=== PATIENT | male | born 1940 | race Caucasian/White ===

== ENCOUNTER 2018-08-10 07:48 | Outpatient (CLI) | payer MEDICARE, SELFPAY ==
[2018-08-10 08:41] LABS: Glucose 115 mg/dL (70-100)
== END 2018-08-10 08:08 ==
PROVIDERS: PCP General Practice; Visit Provider General Practice
DX: R73.03 Prediabetes (principal)
CPT/HCPCS: 36415; 82947

== ENCOUNTER 2019-01-25 05:09 | Emergency (ER) | payer MEDICARE, SELFPAY ==
--- NOTE | 2019-01-25 05:19 | ED.GENADUL_ITS ---
Discharge Plan Disposition Patient Disposition: HOME Condition: Stable Discharge Details Chief Complaint: FlankPain Clinical Impression: Kidney stone on right side Primary Care Provider: Lionel Michele ED Provider: Michael Leon Home Meds and New Rx's Prescriptions: New oxycodone 5 mg tablet 5 mg PO Q6H PRN (Reason: pain) Qty: 12 RF: 0 tamsulosin [Flomax] 0.4 mg capsule 0.4 mg PO DAILY Qty: 14 RF: 0 ondansetron 4 mg tablet,disintegrating 4 mg PO Q8H PRN (Reason: nausea and vomiting) Qty: 20 RF: 0 Continued finasteride 5 MG tablet 5 mg PO DAILY RF: 0 I-Caps 1 EACH capsule 1 ea PO DAILY RF: 0 doxazosin 4 MG tablet 4 mg PO DAILY RF: 0 hydrochlorothiazide 25 MG tablet 25 mg PO DAILY RF: 0 Fiber Laxative (methylcellulo) 500 MG tablet 500 mg PO DAILY PRNRF: 0 docusate sodium 250 mg Capsule 250 mg PO DAILY PRNRF: 0 Discharge Instructions Instructions: Kidney Stones (ED) Additional Instructions: Follow up with urology, you should be contacted with an appointment if you develop uncontrolled pain, fevers or persistent vomit return to the emergency department for reevaluation Medical Decision Making 78 yo male with hx of htn and remote history of kidney stones comes in with acut e onset right lower back/flank pain with n/v. He states he has had cold symptoms for a few days including rhinorrhea and dry cough without fevers, otherwise has been feeling well. Denies chest pain, sob, falls/trauma. He arrives in no distress and no abdominal tenderness, has pain in the right lower lumbar region, no midline pain. No saddle anesthesia or urinary retention, no fevers or ivdu, no findings on history or exam to suggest cauda equina or sea. Will obtain ct to eval for kidney stone. Given lack of abdominal tenderness doubt entities such as appendicitis or other surgical pathology labs show no acute findings, awaiting UA. CXR on my read shows no acute findings and CT on my read shows right kindey stone, awaiting vrad report. He remains stable and pain initially went away with toradol but then returned, additional 15mg toradol and he declined morphine. vrad agrees with xray report of no acute finding and ct shows kidney stone otherwise no acute findings. He remains feeling well and is stable for d/c. Will refer to urology within 2 weeks and return precautions given Differential Diagnosis Differential Diagnosis: kidney stone, muscle spasm, pna Imaging Data Radiologic Study: Attestation: I personally reviewed and interpreted this imaging study as follows: Imaging: X-Ray My impression: no acute findings Radiologic Study #2: Attestation: I personally reviewed and interpreted this imaging study as follows: Imaging: CT Scan My impression: right ureteral stone Lab Data Lab results reviewed: Yes I reviewed the patient's lab results. HPI General Mode of arrival: ambulatory . Date/Time Provider Initiated Documentation: 01/25/19 05:10 . Limitations to Documentation: no limitations . Information obtained by: patient . History of Present Illness 78 year old M presents to the emergency department with the chief complaint of right flank pain, described as moderate, Quality is described as aching, and it has been constant. No relieving factors improve symptom(s), No exacerbating factors reported . Patient notes cough. Related Data Home Medications Medication Instructions Recorded Confirmed doxazosin 4 mg PO DAILY 06/23/12 01/25/19 finasteride 5 mg PO DAILY tab-cap 01/31/15 01/25/19 I-Caps 1 ea PO DAILY 05/02/15 01/25/19 hydrochlorothiazide 25 mg PO DAILY 02/20/16 01/25/19 Fiber Laxative (methylcellulo) 500 mg PO DAILY PRN 05/01/16 01/25/19 docusate sodium 250 mg PO DAILY PRN 01/25/19 01/25/19 ondansetron 4 mg PO Q8H PRN #20 tab 01/25/19 oxycodone 5 mg PO Q6H PRN #12 tab 01/25/19 tamsulosin [Flomax] 0.4 mg PO DAILY #14 cap 01/25/19 Previous Rx's Medication Instructions Recorded ondansetron 4 mg PO Q8H PRN #20 tab 01/25/19 oxycodone 5 mg PO Q6H PRN #12 tab 01/25/19 tamsulosin [Flomax] 0.4 mg PO DAILY #14 cap 01/25/19 Allergies Allergy/AdvReac Type Severity Reaction Status Date / Time Penicillins Allergy Unknown sometimes, Unverified 07/26/17 19:26 the shot, so long ago I can't remember hay AdvReac Mild Uncoded 07/26/17 19:26 Review of Systems Review of Systems ROS Unobtainable: All systems reviewed & are unremarkable except as noted in HPI and below Constitutional Constitutional: Denies chills, Denies fever(s) and Denies weakness Cardiovascular Cardiovascular: Denies chest pain and Denies dyspnea Respiratory Respiratory: Denies cough and Denies dyspnea Gastrointestinal Gastrointestinal: Denies abdominal pain, Denies nausea and Denies vomiting Musculoskeletal Musculoskeletal: Denies joint swelling Neurologic Neurologic: Denies weakness [facility] Medical History Essential hypertension Surgical History (Updated 01/28/18 @ 14:34 by [place]) Cholecystectomy Family History Mother Neoplasm Breast cancer. Social History Smoking/Tobacco Use Status: Never Alcohol Intake: never Drug use: Never Substance use type: does not use Do you feel safe at home: Yes Do you feel safe in your relationship?: Yes Exam Const General: no acute distress Orientation: alert HENMT Head: normal to inspection Ears: external ears normal General nose exam: external nose normal Mouth: moist mucous membranes Eyes General: appearance normal, both eyes and all related structures Neck Neck: normal visual inspection Resp Effort & Inspection: normal respiratory effort and able to speak in complete sentences Cardio Rate: regular rate Back/Spine/Pelvis Back: no CVA tenderness Skin General skin exam: no rashes or lesions noted Neuro General: alert and oriented x3 Extrem General: normal to inspection Psych Mental Status: mental status grossly normal
[2019-01-25 05:21] VITALS: BP 160/82; PULSE 79; RESP 16; TEMP 36.2; O2SAT 95
[2019-01-25] MEDS: Normal Saline 1,000 ML 1000 ML IV (05:34)
[2019-01-25] MEDS: Ketorolac 15 MG/ML VIAL IVP ×2 (05:36→06:29)
[2019-01-25] MEDS: Ondansetron 4 MG/2 ML VIAL IVP (05:36)
[2019-01-25 05:37] LABS: Abs Immature Grans 0.03 k/cumm (0.0-0.09); Absolute Basophil Count 0.02 k/cumm (0.0-0.2); Absolute Eosinophil Count 0.16 k/cumm (0.0-0.7); Absolute Lymphocyte Count 1.07 k/cumm (1.2-3.4); Absolute Monocyte Count 0.53 k/cumm (0.11-0.7); Absolute Neutrophil Count 7.23 k/cumm (1.2-6.7); Basophils % 0.2; Eosinophils % 1.8; HCT 45.6 % (40.0-50.0); HGB 15.2 g/dL (13.5-17.5); Immature Grans % 0.3; Lymphocytes % 11.8; Mean Corp. HGB Concentration 33.3 g/dL (32.0-36.0); Mean Corpuscular Volume 90.1 fL (80-95); Mean Platelet Volume 9.6 fL (8.0-11.0); Monocytes % 5.9; Platelet Count 177 x1000/uL (130-400); RBC 5.06 m/cumm (4.50-6.00); RBC Distribution Width 14.4 % (11.8-14.1); White Blood Cell Count 9.04 k/cumm (4.4-10.8)
[2019-01-25 05:45] LABS: Lipase 93 U/L (73-393)
[2019-01-25 05:50] LABS: ALT 20 U/L (16-63); AST 15 U/L (15-37); Alkaline Phosphatase 79 U/L (46-116); Anion Gap 9.9 mmol/L (3-11); BUN 22 mg/dL (7-18); Bilirubin, Total 0.7 mg/dL (0.2-1.0); CO2 29.1 mmol/L (21.0-32.0); CREATININE 1.48 mg/dL (0.70-1.30); Calcium 8.8 mg/dL (8.5-10.1); Chloride 104 mmol/L (98-107); Estimated GFR 45.97 (mL/min/1.73m2); Glucose 152 mg/dL (70-100); INR 1.1 (0.9-1.1); PTT Activated 26.1 sec (21.0-31.4); Potassium 3.7 mmol/L (3.5-5.1); Sodium 143 mmol/L (136-145); Total Protein 7.5 g/dL (6.4-8.2)
--- NOTE | 2019-01-25 06:05 | DI.RAD_ITS ---
EXAM: XR CHEST 2V PA LATERAL INDICATION: cough. COMPARISON: No exams were available for comparison TECHNIQUE: 2D digital imaging was performed. FINDINGS: There is a poor inspiration. Heart is not enlarged. Lungs are grossly clear with probable minimal c hanges of basilar scarring. IMPRESSION: No evidence of acute process.
--- NOTE | 2019-01-25 06:05 | DI.CT_ITS ---
EXAM: CT RENAL COLIC WO CLINICAL HISTORY: right flank pain. TECHNIQUE: COMPARISON: No exams were available for comparison FINDINGS: CT examination of the abdomen and pelvis was performed without contrast administration. Images obtai shirin through the lung bases are unremarkable. Gallbladder has been surgically removed. No biliary di latation. Visualized portions of liver and spleen are unremarkable. Pancreas normal by noncontrast criteria. Abdominal aorta is of normal diameter. Bilateral inguinal hernias, the left inguinal kelsey ia contains fat and a segment of sigmoid colon which is nonobstructed. No focal bowel pathology seen . Normal appearance of the appendix. No abdominal or pelvic adenopathy. Adrenals appear normal bilaterally. Left kidney contains tiny nonobstructing upper pole stone. Nono bstructing lower pole calculi noted in right kidney including an approximately [address] stone. There is left hydronephrosis and hydroureter to the level of the proximal to mid ureter w here there is an obstructing 6 millimeter stone. No additional ureteral calculi identified. Urinary bladder grossly intact. Prostate enlarged. IMPRESSION: Bilateral nonobstructing renal calculi, there is also a 6 millimeter in diameter obstructing right pr oximal to mid ureteral stone. Left inguinal hernia contains a loop of sigmoid colon no evidence of obstruction.
--- NOTE | 2019-01-25 06:24 | NUR.NOTE ---
Nursing Note: PT STATES HIS PAIN IS COMING BACK NOTIFIED MD - PT WAS RESTING IN BED, TRY TO VOID, WITH BEDSIDE
[2019-01-25 06:41] LABS: Bilirubin Negative (Negative); Blood Moderate (Negative); Clarity Sl Cloudy (Clear); Glucose Negative (Negative); Ketones Negative (Negative); Leukocyte Esterase Negative (Negative); Nitrite Negative (Negative); Specific Gravity 1.025 (1.005-1.025); Urobilinogen 0.2 EU/dL (Up TO 0.2)
[2019-01-25 06:48] LABS: WBC 0-2 HPF (0-5)
[2019-01-25 06:49] LABS: Bacteria Few HPF (Negative); C & S Indicated? No; Casts Negative LPF (Negative); Crystals Negative HPF (Negative); Epithelial Cells Few HPF (Negative); Mucus Negative (Negative); Other Cells Moderate Spermatozoa (Negative)
--- NOTE | 2019-01-25 06:49 | NUR.NOTE ---
Pt reports pain increasing again, morphine ordered. Pt declined morphine, stated the pain was decreasing. voiding in urinal, sample sent to lab.
--- NOTE | 2019-01-25 06:54 | DI.VRAD_ITS ---
PROCEDURE INFORMATION: Exam: CT Abdomen And Pelvis Without Contrast Exam date and time: 01/25/2019 5:16 AM Clinical history: 78 years old, male; Prior surgery; Surgery date: 6+ months; Surgery type: Gallbladder removed, hip replacement; Patient HX: R flank pain, constipation, vomiting TECHNIQUE: Imaging protocol: Computed tomography of the abdomen and pelvis without contrast. Radiation optimization: All CT scans at this facility use at least one of these dose optimization techniques: automated exposure control; mA and/or kV adjustment per patient size (includes targeted exams where dose is matched to clinical indication); or iterative reconstruction. COMPARISON: No relevant prior studies are available for comparison. FINDINGS: Limitations: No contrast was administered, limiting evaluation for some pathologies. Lungs: Scarring/atelectasis in the visualized lungs. Nonspecific ground glass opacities at the lung bases. Liver: No focal hepatic lesion identified, within the limitations of a noncontrast examination. Gallbladder and bile ducts: Cholecystectomy. Pancreas: No CT evidence for acute pancreatitis. Spleen: No splenomegaly. Adrenals: No mass. Kidneys and ureters: Bilateral renal cysts. Parenchymal calcification in the left kidney. No left hydronephrosis. Right renal calculus. There is right hydroureteronephrosis. There is a 6 mm calculus in the mid right ureter. Stomach and bowel: No intestinal obstruction is evident. See below for additional findings. Appendix: No evidence of appendicitis. Intraperitoneal space: No free air. Vasculature: Coronary artery calcifications. Arterial calcifications. No abdominal aortic aneurysm identified. Bladder: No bladder calculus seen. Reproductive: Enlarged prostate with calcifications. Bones/joints: Right hip prosthesis. Degenerative changes in the spine. Hemangioma at L1. Soft tissues: Left inguinal hernia containing fat and sigmoid colon, without evidence for associated structural. Fat containing right inguinal hernia. IMPRESSION: 1. Obstructing right ureteral calculus. 2. Nonacute findings as outlined above. Dictated and Authenticated by: Cortney Montiel MD. Ordering:JONA Rodriguez MD
--- NOTE | 2019-01-25 06:55 | DI.VRAD_ITS ---
PROCEDURE INFORMATION: Exam: XR Chest, 2 Views Exam date and time: 01/25/2019 6:06 AM Clinical history: 78 years old, male; Patient HX: Cough, TECHNIQUE: Imaging protocol: XR of the chest Views: 2 views. COMPARISON: No relevant prior studies available. FINDINGS: Lungs: No focal consolidation appreciated. Pleural space: No pleural effusion seen. Heart/Mediastinum: Cardiac silhouette not enlarged. Diaphragm: Elevated right hemidiaphragm. Vasculature: Aortic calcifications. Tortuous aorta. Bones/joints: Degenerative changes in the spine. IMPRESSION: No radiographic evidence for active cardiopulmonary disease. Dictated and Authenticated by: Cortney Montiel MD. Ordering:JONA Rodriguez MD
[2019-01-25 07:01] VITALS: BP 128/66; PULSE 68; RESP 16; TEMP 36.7; O2SAT 94
--- NOTE | 2019-01-25 07:33 | NUR.NOTE ---
Nursing Note: Referral to Urology for follow up was faxed. Shelly Bailey.
== END 2019-01-25 07:09 | disposition home or self-care (01) ==
PROVIDERS: Emergency Provider Emergency Medicine; PCP General Practice
DX: N20.1 Calculus of ureter (principal); I10 Essential (primary) hypertension
CPT/HCPCS: 36415; 80053; 83690; 96361; 96374; 96375; 96376; 99284; 71046; 74176; 81003; 81015; 85025; 85610; 85730; J1885; J2405

== ENCOUNTER → 2019-01-26 10:56 | Outpatient (BNVA) | payer MEDICARE, SELFPAY | PROVIDERS: PCP General Practice; Referring Provider General Practice; Visit Provider Urology | DX: N20.2 Calculus of kidney with calculus of ureter (principal); I10 Essential (primary) hypertension | CPT/HCPCS: 99203; 99214 ==

== ENCOUNTER → 2019-02-05 13:22 | Outpatient (BNVA) | payer MEDICARE, SELFPAY | PROVIDERS: PCP General Practice; Referring Provider General Practice; Visit Provider Urology | DX: N20.1 Calculus of ureter (principal); I10 Essential (primary) hypertension | CPT/HCPCS: 99213 ==

== ENCOUNTER 2019-02-08 08:51 | Day surgery (SDC) | payer MEDICARE, SELFPAY ==
[2019-02-08 09:08] VITALS: BP 121/78; PULSE 102; RESP 18; TEMP 35.6; O2SAT 96
--- NOTE | 2019-02-08 09:17 | DI.RAD_ITS ---
EXAM: XR RETROGRADE IN OR INDICATION: RIGHT KIDNEY STONE. COMPARISON: No exams were available for comparison TECHNIQUE: 2D digital imaging was performed. FINDINGS: Fluoroscopy was utilized by Dr. Jama in the operating room during retrograde evaluation of the right renal collecting system. The hard copy image obtained shows the distal aspect of a nephroureteral s tent. Please refer to the procedure report for complete details. Fluoro time: 37.2 seconds
[2019-02-08] MEDS: Lactated Ringers 1,000 ML 80 ML IV (09:40)
[2019-02-08] MEDS: GENTAMICIN 120 MG in Normal Saline 100 ML 206 MG IVPB (10:14)
[2019-02-08] MEDS: Omnipaque 300 MG/ML 50 ML BTL (10:23)
[2019-02-08] MEDS: Lidocaine 2% Jelly 6 ML SYR (10:23)
[2019-02-08 10:53] VITALS: BP 148/94; PULSE 95; RESP 18; TEMP 36.3; O2SAT 93
--- NOTE | 2019-02-08 10:53 | W.PM.DSUDISC ---
Discharge Plan Disposition Patient Disposition: HOME Condition: Stable Discharge Details Reason For Visit: (R) URETERAL STONE Attending Provider: Giancarlo Jama Primary Care Provider: Lionel Michele Home Meds and New Rx's Prescriptions: No Action promethazine 25 mg tablet 25 mg PO Q6H PRN (Reason: nausea and vomiting) Qty: 10 RF: 0 finasteride 5 MG tablet 5 mg PO DAILY RF: 0 I-Caps 1 EACH capsule 1 ea PO DAILY RF: 0 doxazosin 4 MG tablet 4 mg PO DAILY RF: 0 hydrochlorothiazide 25 MG tablet 25 mg PO DAILY RF: 0 Fiber Laxative (methylcellulo) 500 MG tablet 500 mg PO DAILY PRNRF: 0 docusate sodium 250 mg Capsule 250 mg PO DAILY PRNRF: 0 oxycodone 5 mg tablet 5 mg PO Q6H PRN (Reason: pain) Qty: 12 RF: 0 tamsulosin [Flomax] 0.4 mg capsule 0.4 mg PO DAILY Qty: 14 RF: 0 Discharge Instructions Additional Instructions: F/U later this week for stent removal - tell my office there is a string on pt's stent F/U appt in @ 6 weeks with renal US and stone analysis no need to strain urine Activity:: Activity as Tolerated Diet:: As Tolerated Discharge Orders Discharge Orders: Discharge Order (Routine); Ordered 02/08/19 Ordered By: Giancarlo Jama DS: Diagnosis Discharge Diagnosis (1) Calculus of proximal right ureter: Status: Acute
[2019-02-08 10:58] VITALS: BP 134/93; PULSE 91; RESP 19; TEMP 36.3; O2SAT 93
[2019-02-08 11:03] VITALS: BP 138/95; PULSE 93; RESP 18; TEMP 36.3; O2SAT 94
[2019-02-08 11:18] VITALS: BP 135/89; PULSE 91; RESP 18; TEMP 36.4; O2SAT 94
--- NOTE | 2019-02-08 12:09 | ROE_ITS ---
DATE OF PROCEDURE: February 08, 2019 PREOPERATIVE DIAGNOSIS: Right ureteral stone. POSTOPERATIVE DIAGNOSIS: Same. PROCEDURE: Cystoscopy; right retrograde pyelogram; right ureteral dilation; right semi-rigid uretero scopy with stone extraction; insert right ureteral stent. SURGEON: Giancarlo Jama M.D. ANESTHESIA: General. COMPLICATIONS: None. ESTIMATED BLOOD LOSS: Minimal. HISTORY: This is a 78-year-old gentleman who presented to the Emergency Room with right flank pain. He was found to have a right proximal ureteral stone. The stone has not passed in spite of conservative management. He presents now for stone manipulation . OPERATIVE REPORT: The patient was brought to the Operating Room on 02/08/19. After successful induction of general anesthesia, he was placed in the dorsal lithotomy position. Hi s genitalia was prepped and draped sterilely. 2% Xylocaine jelly was instilled into the urethra to act as a local anesthetic. A 22 [place] rigid cy stoscope was then passed through the urethra into the bladder. The urethra and bladder were inspecte d using the 30-degree lens. The pendulous, bulbous and membranous urethras appeared normal with no strictures. The prostatic ure thra showed lateral lobe enlargement and there were some adherent small stones on the prostatic mucos a. The bladder neck was entered and the bladder mucosa was inspected. The right ureteral orifice appear ed markedly dilated and edematous, making me suspect that his ureteral stone had migrated to the uret erovesical junction. The left ureteral orifice appeared normal. I then passed a 6 [place] access catheter through the cystoscope and was able to negotiate the cathete r into the ureteral orifice on the right. A retrograde pyelogram was obtained by injecting Omnipaque through the access catheter under fluoroscopic guidance. A filling defect was seen in the distal ur eter and the entire ureter was dilated. I then passed a Glidewire through the access catheter and maneuvered it above the level of the stone. Purulent material then drained from that right kidney. Initial attempts at passing a semi-rigid ureteroscope were not successful, so I dilated the distal ur eter using a UroMax balloon. The scope could then be passed and I was able to visualize the distal u reteral stone. That stone was grasped in a Zero Tip stone basket and removed in its entirety. Because of the manipulation and also because of the appearance of the urine draining from the right k idney, we chose to place a ureteral stent. We used a 4.8 [place] variable-length stent and positioned the stent so that the proximal end was curled in the renal pelvis and the distal end was curled with in the bladder. The safety string was left in place and brought through the urethra. The string was then taped onto the dorsum of the penis. The positioning of the stent was confirmed both cystoscopically and fluoroscopically. The stone that was removed was sent to pathology for chemical analysis. The patient tolerated this p rocedure well. There were no complications.
[2019-02-08 12:30] VITALS: BP 128/68; PULSE 93; RESP 14; TEMP 36.3; O2SAT 94
[2019-02-10 16:12] LABS: Source: Right Ureter
[2019-02-10 16:13] LABS: Interpretation 100% Uric acid
== END 2019-02-08 13:30 | disposition home or self-care (01) ==
PROVIDERS: PCP Family Medicine; Visit Provider Urology
PROC: (CPT 52352; principal; 2019-02-08 10:00)
DX: N20.1 Calculus of ureter (principal); R82.81 Pyuria; I10 Essential (primary) hypertension
CPT/HCPCS: 52352; 52332; 52344; 74420; 82365; J1580; J1885; J2405; J3010; Q9967

== ENCOUNTER → 2019-02-11 08:20 | Outpatient (BNVA) | payer MEDICARE, SELFPAY | PROVIDERS: PCP General Practice; Referring Provider General Practice; Visit Provider Urology | DX: R20.1 Hypoesthesia of skin (principal); Z46.6 Encounter for fitting and adjustment of urinary device; Z96.0 Presence of urogenital implants | CPT/HCPCS: 99211 ==

== ENCOUNTER 2019-03-26 00:41 | Outpatient (CLI) | payer MEDICARE, SELFPAY ==
--- NOTE | 2019-03-26 12:56 | DI.US_ITS ---
EXAM: US RENAL CLINICAL HISTORY: r/o hydronephrosis TECHNIQUE: Ultrasound performed using standard protocol. COMPARISON: RIGHT EXTREMITY ULTRASOUND from 07/31/2017 CT RENAL COLIC WO from 01/25/2019 FINDINGS: The right kidney measures 10.9 centimeters long. There is a 0.7 centimeter echogenic shadowing focus in the lower pole of the right kidney consistent with a nonobstructing stone. No hydronephrosis is identified. There is is 2.2 x 2.1 x 1.5 centimeter cyst in the midpole of the right kidney. There i s a thin septation internally. Normal blood flow seen to the right kidney. The left kidney measures 11.7 centimeters long. No renal calculus or obstruction is identified. The re is normal blood flow to the left kidney. The bladder is incompletely filled and not able to be evaluated well on this examination. IMPRESSION: 1. No evidence of hydronephrosis. 2. Right nephrolithiasis 3. Right renal cyst.
== END 2019-03-26 01:01 ==
PROVIDERS: PCP General Practice; Visit Provider Urology
DX: N20.1 Calculus of ureter (principal); N28.1 Cyst of kidney, acquired; I10 Essential (primary) hypertension
CPT/HCPCS: 76770; 99213

== ENCOUNTER 2019-04-10 09:06 | Outpatient (CLI) | payer MEDICARE, SELFPAY ==
[2019-04-10 10:14] LABS: Glucose 111 mg/dL (74-106)
== END 2019-04-10 09:26 ==
PROVIDERS: PCP General Practice; Visit Provider General Practice
DX: R73.03 Prediabetes (principal)
CPT/HCPCS: 36415; 82947

== ENCOUNTER → 2019-05-18 14:21 | Outpatient (BNVA) | payer MEDICARE, SELFPAY | PROVIDERS: PCP General Practice; Referring Provider General Practice; Visit Provider Urology | DX: N20.0 Calculus of kidney (principal) | CPT/HCPCS: 81003; 99213 ==

== ENCOUNTER 2019-05-24 09:21 | Outpatient (CLI) | payer MEDICARE, SELFPAY ==
--- NOTE | 2019-05-24 09:28 | DI.RAD_ITS ---
EXAM: XR HIP LT COMPLETE AP PELVIS INDICATION: PAIN LEFT HIP. COMPARISON: RT HIP COMPLETE AP PELVIS from 09/13/2014 TECHNIQUE: 2D digital imaging was performed. FINDINGS: The patient is status post placement of a right hip prosthesis. There is severe degenerative changes of left hip which have increased significantly when compared with 2014. There is also spurring from the left greater trochanter and inferior SI joints. IMPRESSION: Moderate to severe degenerative changes of the left hip.
--- NOTE | 2019-05-24 09:33 | DI.RAD_ITS ---
EXAM: XR SHOULDER LT COMPLETE 2+V INDICATION: LEFT HIP PAIN. COMPARISON: No exams were available for comparison TECHNIQUE: 2D digital imaging was performed. FINDINGS: There is spurring at the AC joint and glenoid. Glenohumeral joint is well maintained. IMPRESSION: Mild degenerative changes.
== END 2019-05-24 09:41 ==
PROVIDERS: PCP General Practice; Referring Provider Physical Therapist; Visit Provider Student in an Organized Health Care Education/Training Program
DX: M25.552 Pain in left hip (principal); M25.512 Pain in left shoulder; M19.012 Primary osteoarthritis, left shoulder; M16.12 Unilateral primary osteoarthritis, left hip; M75.82 Other shoulder lesions, left shoulder; I10 Essential (primary) hypertension
CPT/HCPCS: 20610; 99203; 99214; 73030; 73502; J1040

== ENCOUNTER 2019-06-17 01:42 | Outpatient (CLI) | payer MEDICARE, SELFPAY ==
--- NOTE | 2019-06-17 13:35 | W.PROCNOTE ---
Date of service: 06/17/19 Time of Service: 13:35 Procedure Note Date of procedure: 06/17/19 Procedure: Left Hip Injection with Fluoroscopic Guidance Surgeon/Proceduralist/Physician: Alberto Brown Procedure Diagnosis: Left Hip Osteoarthritis Procedure Indications: Juan has had persistent pain of the LEFT hip and groin. Noninvasive measures have been tried. To serve as both diagnostic and therapeutic, an injection under fluoroscopy was recommended. I had discussed the risks of the procedure and the patient elected to proceed. Procedure Description: Juan was greeted in the flouroscopy room. The correct side was identified and the consent was reviewed with the patient and signed. The patient was then placed in the supine position on the fluoroscopy table. The LEFT hip was then prepped with Chloraprep. The anterolateral injection starting point was identiifed by bony landmarks and fluoroscopy. The skin and soft tissue in the tract of the injection was anesthetized with 1% Lidocaine. A spinal needle was then inserted deep into the hip joint at the level of the lateral femoral neck under fluoroscopic guidance. A small amount of Omnipaque solution was injected to confirm intraarticular placement. Once confirmed, the hip was injected with 6cc of 0.5% Bupivicaine and 80mg of Depo-Medrol. A bandaid was placed on the injection site. The patient tolerated the procedure well and noted improvement in pre-injection pain.
[2019-06-17] MEDS: Omnipaque 300 MG/ML 10 ML BTL IJ (14:38)
[2019-06-17] MEDS: methylPREDNISolone ACETATE 80 MG/ML VIAL IM (14:39)
[2019-06-17] MEDS: Bupivacaine 0.5% Pres-Free 10 ML VIAL 5 ML IJ (14:39)
--- NOTE | 2019-06-17 14:40 | DI.RAD_ITS ---
EXAM: RF JOINT INJECTION FLUORO GUID CLINICAL HISTORY: L HIP INJ UNDER FLUORO-LT HIP PAIN,M25.559 TECHNIQUE: 2D and realtime digital imaging was performed. water soluble contrast was administered. COMPARISON: No exams were available for comparison FINDINGS: Fluoroscopy was provided for Dr. Brown during the performance of a left hip injection. Please re echo to the procedure report for complete details. Fluoro time: 4 seconds IMPRESSION:
== END 2019-06-17 02:02 ==
PROVIDERS: PCP Family Medicine; Visit Provider Student in an Organized Health Care Education/Training Program
DX: M25.552 Pain in left hip (principal); M16.12 Unilateral primary osteoarthritis, left hip
CPT/HCPCS: 20610; 77002; J1040

== ENCOUNTER 2019-07-05 19:42 | Outpatient (REF) | payer MEDICARE, SELFPAY ==
[2019-07-05 19:12] LABS: BUN 22 mg/dL (7-18); CREATININE 1.41 mg/dL (0.70-1.30); Chloride 105 mmol/L (98-107); Estimated GFR 48.49 (mL/min/1.73m2); Glucose 95 mg/dL (74-106); Potassium 4.1 mmol/L (3.5-5.1); Sodium 143 mmol/L (136-145)
== END 2019-07-05 20:02 ==
LOC: NCHCN 19:42
PROVIDERS: PCP Family Medicine; Visit Provider Family Medicine
DX: I10 Essential (primary) hypertension (principal)
CPT/HCPCS: 80048

== ENCOUNTER → 2019-07-13 08:58 | Outpatient (BNVA) | payer MEDICARE, SELFPAY | PROVIDERS: PCP Family Medicine; Referring Provider General Practice; Visit Provider Nurse Practitioner Gerontology | DX: N20.9 Urinary calculus, unspecified (principal); I10 Essential (primary) hypertension | CPT/HCPCS: 99212; 99442; G2012 ==

== ENCOUNTER → 2019-07-30 09:15 | Outpatient (BNVA) | payer MEDICARE, SELFPAY | PROVIDERS: PCP Family Medicine; Referring Provider General Practice; Visit Provider Student in an Organized Health Care Education/Training Program | DX: M54.5 Low back pain (principal); M75.82 Other shoulder lesions, left shoulder; M16.12 Unilateral primary osteoarthritis, left hip; M72.0 Palmar fascial fibromatosis [Dupuytren] | CPT/HCPCS: 99214 ==

== ENCOUNTER 2019-08-27 17:26 | Outpatient (REF) | payer MEDICARE, SELFPAY ==
[2019-08-29 07:07] LABS: COVID-19 RT-PCR Result NEGATIVE (Negative)
== END 2019-08-27 17:46 ==
LOC: NCHCN 17:26
PROVIDERS: PCP Family Medicine; Visit Provider Physician Assistant
DX: R05 Cough (principal)
CPT/HCPCS: U0003

== ENCOUNTER 2019-09-08 01:19 | Outpatient (CLI) | payer MEDICARE, SELFPAY ==
--- NOTE | 2019-09-08 08:30 | DI.MRI_ITS ---
EXAM: MR UPPER JOINT LT WO CLINICAL HISTORY: L shoulder pain,TENDONITIS, M75.82. TECHNIQUE: Multiplanar multisequence MRI was performed. COMPARISON: Plain films dated 24 May 2019. FINDINGS: There is no fracture or contusion pattern. The acromioclavicular joint shows mild to moderate spurring but no significant inferior impingement. Small amount of fluid is seen in the AC joint.. There is fluid in the glenohumeral joint and subcoracoid bursa. There are several intermediate densi ty bodies within the subcoracoid bursa. Degenerative changes are seen at the glenoid. There is spur ring at the humeral head.. The supraspinatus tendonshows thickening and increased signal anteriorly edema consistent with tendin itis. The infraspinatus tendon is intact. The subscapularis and teres minor tendons are normal. The biceps tendon is normally located. The anchor is well maintained. There is fluid within the bic eps tendon sheath. There is no tendon thickening or abnormal signal. The labrum shows degenerative changes. No focal tear is visible.. IMPRESSION: Supraspinatus tendonitis. Fluid in the subcoracoid bursa with several loose bodies vs synovial osteo chondromas. DATA REPOSITORY:
--- NOTE | 2019-09-08 08:30 | DI.MRI_ITS ---
EXAM: MR LUMBAR SPINE WO CLINICAL HISTORY: Low back pain,M54.5. TECHNIQUE: Multiplanar multisequence MRI of the Lumbar spine was performed. COMPARISON: CT CT RENAL COLIC WO from 01/25/[address] RENAL COLIC WO from 01/25/2019 FINDINGS: Bones: The last intervertebral disc space is designated the L5/S1 level for the numbering purpose of this examination. The vertebral body heights are well maintained. Alignment is satisfactory. The ma rrow signal characteristics are unremarkable. A hemangioma is seen in the L1 vertebral body. Cord: The conus tip ends at the T12 level. It is of normal size and signal intensity. T12-L1: No disc herniations or bulges are present. L1-2: There is narrowing of the disc space, eccentric toward the right where there are prominent os teophytes. There are mild facet degenerative changes and mild ligamentous hypertrophy. There is sev ere right and moderate left neural foraminal narrowing. L2-3: There is asymmetric disc space narrowing and prominent endplate osteophytes eccentric toward th e left. There are degenerative signal changes in the endplates. There is broad-based disc bulging. There is a focal disc protrusion which is eccentric toward the left. There are mild facet degenerati ve changes. There is mild narrowing of the central canal. There is severe left and moderate right n eural foraminal narrowing. L3-4: There is disc narrowing eccentric toward the left with left-sided disc osteophytes. There are facet degenerative changes and ligamentous hypertrophy which combine with the disc osteophytes to pr oduce a moderate degree of central canal stenosis as well as severe bilateral neural foraminal narrow ing. L4-5: There are broad-based disc osteophytes eccentric toward the right. There are facet degenerati ve changes and ligamentous hypertrophy causing moderate central canal stenosis and severe bilateral n eural foraminal narrowing, greater on the right. L5-S1: There is moderate loss of disc height and small endplate osteophytes. There are mild facet d egenerative changes. There is moderate to severe bilateral neural foraminal narrowing. No central c anal stenosis is seen. Soft tissues: The visualized SI joints and sacrum are well maintained. The paraspinal soft tissues ar e unremarkable. IMPRESSION: Severe degenerative disc changes and facet degenerative changes causing severe bilateral neural tiny inal narrowing at multiple levels. There is moderate central canal stenosis at L4-5. DATA REPOSITORY:
== END 2019-09-08 01:39 ==
PROVIDERS: PCP Family Medicine; Visit Provider Student in an Organized Health Care Education/Training Program
DX: M25.512 Pain in left shoulder (principal); M75.82 Other shoulder lesions, left shoulder; M54.5 Low back pain; M51.37 Other intervertebral disc degeneration, lumbosacral region; M48.07 Spinal stenosis, lumbosacral region
CPT/HCPCS: 72148; 73221

== ENCOUNTER → 2019-09-13 10:29 | Outpatient (BNVA) | payer MEDICARE, SELFPAY | PROVIDERS: PCP Family Medicine; Referring Provider Family Medicine; Visit Provider Nurse Practitioner Gerontology | DX: N20.9 Urinary calculus, unspecified (principal); I10 Essential (primary) hypertension | CPT/HCPCS: 81003; 99213 ==

== ENCOUNTER 2019-10-26 07:37 | Outpatient (CLI) | payer MEDICARE, SELFPAY ==
--- NOTE | 2019-10-26 06:00 | DI.RAD_ITS ---
EXAM: XR PAIN CLINIC LUMBAR SP 2V CLINICAL HISTORY: Lumbar Radiculopathy TECHNIQUE: 2D and realtime digital imaging was performed. Fluoroscopy was provided in the OR COMPARISON: No exams were available for comparison FINDINGS: C-arm fluoroscopy was utilized by Dr. Nur during apparent epidural injection, needle placement is noted in the posterior midline at what appears to be the L4-5 level. Fluoro time, 17.6 seconds. IMPRESSION: RADIATION DOSE DELIVERED: Total DLP
[2019-10-26 08:02] VITALS: BP 98/68; PULSE 90; RESP 22; TEMP 36.7; O2SAT 92
--- NOTE | 2019-10-26 08:17 | PDOC.PAIN ---
Pain Clinic Procedure Note Procedure Note Procedure Note: Lumbar Epidural Steroid Injection Procedure Note Pre-operative diagnosis: lumbar spinal stenosis Post-operative diagnosis: same as above COMMENTS: patient is referred for trial of lumbar epidural steroid injection. He has lumbar spinal stenosis, most noticeable at L4-5. He reports worsening back pain with leg heaviness with ambulation. Pain is worse with lumbar flexion and extension. ARABELLA LUCERO has been referred to the [facility] for lumbar epidural steroid injection. The patient was greeted by the nurse who verified patients name and . Patient was then taken to the fluoroscopy suite. The patient was interviewed and the medial record reviewed. There were no medical, pharmacologic, radiographic, or other structural contraindications to attempting fluoroscopically guided lumbar epidural steroid injection. Risks and expected side effects as well as potential benefits of the procedure were reviewed and voiced concerns expressed. The patient consent form was signed and witnessed. Standard patient time-out procedure was performed. The patient was placed in the prone position on the fluoroscopy table and automated blood pressure cuff and pulse oximeter applied. The skin entry point for entering/approaching the epidural space by a L4-5 and marked. Following thorough chlorhexadine preparation of the skin and draping and 1% lidocaine infiltration of the skin entry point and subcutaneous tissues, a 18 gauge Touhy needle was placed under fluoroscopic guidance and with loss of resistance technique into the epidural space. Needle tip placement and depth were aided and confirmed by fluoroscopy. There was no paresthesia or return of blood or CSF through the needle. 1 cc's of Omnipaque 240 was injected with clear epidural spread confirmed with fluoroscopy. 80mg depomedrol was injected. This is followed by 0.5cc of preservative free 1% lidocaine and 1cc of preservative free normal saline. There was not any unusual discomfort expressed by ARABELLA LUCERO. Patient's vital signs were stable throughout the procedure and were as recorded in nursing records. Follow up plans and appointments were discussed with patient. Post procedure instruction was given as documented in nursing records and having met discharge criteria and was discharged from the [facility]. COMMENTS: If this procedure is helpful, it can be completed up to 3 times per 12 months. I personally performed the entire procedure. Kathie Layton MD Pain Management
[2019-10-26 08:41] VITALS: BP 103/66; PULSE 67; RESP 20; O2SAT 94
[2019-10-26] MEDS: methylPREDNISolone ACETATE 80 MG/ML VIAL (08:46)
[2019-10-26] MEDS: Omnipaque 240 MG/ML 50 ML BTL IJ (08:46)
== END 2019-10-26 07:57 ==
PROVIDERS: PCP Family Medicine; Visit Provider Internal Medicine
DX: M48.062 Spinal stenosis, lumbar region with neurogenic claudication (principal)
CPT/HCPCS: 62323; 72100; 76000; J1040; Q9967

== ENCOUNTER 2019-12-14 08:09 | Outpatient (CLI) | payer MEDICARE, SELFPAY ==
--- NOTE | 2019-12-14 06:00 | DI.RAD_ITS ---
EXAM: XR PAIN CLINIC LUMBAR SP 2V CLINICAL HISTORY: Dx: Lumbar Radiculopathy TECHNIQUE: 2D and realtime digital imaging was performed. CONTRAST MATERIAL: Refer to procedure report. COMPARISON: No exams were available for comparison FINDINGS: Fluoroscopy was provided for Dr. Layton during the performance of a lumbar epidural steroid injection at L5-S1. Please refer to the procedure report for complete details. Fluoro time: 20.1 seconds IMPRESSION:
[2019-12-14 08:15] VITALS: BP 103/67; PULSE 82; RESP 20; TEMP 36.7; O2SAT 95
[2019-12-14] MEDS: methylPREDNISolone ACETATE 80 MG/ML VIAL IJ (08:40)
[2019-12-14] MEDS: Omnipaque 240 MG/ML 50 ML BTL IJ (08:40)
[2019-12-14 08:41] VITALS: BP 131/82; PULSE 64; RESP 21; O2SAT 95
--- NOTE | 2019-12-14 08:45 | PDOC.PAIN ---
Pain Clinic Procedure Note Procedure Note Procedure Note: Lumbar Epidural Steroid Injection Procedure Note Date of service: december 14, 2019 Pre-operative diagnosis: lumbar spinal stenosis Post-operative diagnosis: same as above COMMENTS: patient is referred for trial of lumbar epidural steroid injection. He has lumbar spinal stenosis, most noticeable at L4-5. He reports worsening back pain with leg heaviness with ambulation. Pain is relieved with lumbar flexion. He had last LESI in 10/2019 which provided significant pain relief for about a month but then pain slowly started to return. Today, he reports predominantly axial back pain across the lower back, minimal leg symptoms. ARABELLA LUCERO has been referred to the [facility] for lumbar epidural steroid injection. The patient was greeted by the nurse who verified patients name and . Patient was then taken to the fluoroscopy suite. The patient was interviewed and the medial record reviewed. There were no medical, pharmacologic, radiographic, or other structural contraindications to attempting fluoroscopically guided lumbar epidural steroid injection. Risks and expected side effects as well as potential benefits of the procedure were reviewed and voiced concerns expressed. The patient consent form was signed and witnessed. Standard patient time-out procedure was performed. The patient was placed in the prone position on the fluoroscopy table and automated blood pressure cuff and pulse oximeter applied. The skin entry point for entering/approaching the epidural space by a L5-S1 and marked. Following thorough chlorhexadine preparation of the skin and draping and 1% lidocaine infiltration of the skin entry point and subcutaneous tissues, a 18 gauge Touhy needle was placed under fluoroscopic guidance and with loss of resistance technique into the epidural space. Needle tip placement and depth were aided and confirmed by fluoroscopy. There was no paresthesia or return of blood or CSF through the needle. 1 cc's of Omnipaque 240 was injected with clear epidural spread confirmed with fluoroscopy. 80mg depomedrol was injected. This is followed by 0.5cc of preservative free 1% lidocaine and 1cc of preservative free normal saline. There was not any unusual discomfort expressed by ARABELLA LUCERO. Patient's vital signs were stable throughout the procedure and were as recorded in nursing records. Follow up plans and appointments were discussed with patient. Post procedure instruction was given as documented in nursing records and having met discharge criteria and was discharged from the [facility]. COMMENTS: If this procedure is helpful, it can be completed up to 3 times per 12 months. If patient has predominantly axial back pain, may consider lower lumbar facet injections. I personally performed the entire procedure. Kathie Layton MD Pain Management
== END 2019-12-14 08:29 ==
PROVIDERS: PCP Family Medicine; Visit Provider Internal Medicine
DX: M48.062 Spinal stenosis, lumbar region with neurogenic claudication (principal)
CPT/HCPCS: 62323; 72100; J1040; Q9967

== ENCOUNTER 2020-01-20 17:53 | Outpatient (REF) | payer MEDICARE, SELFPAY ==
[2020-01-20 18:54] LABS: Anion Gap 9.5 mmol/L (3-11); BUN 25 mg/dL (7-18); CO2 29.5 mmol/L (21.0-32.0); Calcium 9.2 mg/dL (8.5-10.1); Chloride 104 mmol/L (98-107); Estimated GFR 32.39 (mL/min/1.73m2); Glucose 102 mg/dL (74-106); Potassium 4.2 mmol/L (3.5-5.1); Sodium 143 mmol/L (136-145)
== END 2020-01-20 18:13 ==
LOC: NCHCN 17:53
PROVIDERS: PCP Family Medicine; Visit Provider Family Medicine
DX: I10 Essential (primary) hypertension (principal)
CPT/HCPCS: 80048

== ENCOUNTER → 2020-01-31 09:00 | Outpatient (BNVA) | payer MEDICARE, SELFPAY | PROVIDERS: PCP Family Medicine; Referring Provider Family Medicine; Visit Provider Surgery | DX: K40.90 Unilateral inguinal hernia, without obstruction or gangrene, not specified as recurrent (principal); Z01.818 Encounter for other preprocedural examination; I10 Essential (primary) hypertension | CPT/HCPCS: 99204; 99214 ==

== ENCOUNTER 2020-02-02 00:57 | Outpatient (CLI) | payer MEDICARE, SELFPAY ==
--- NOTE | 2020-02-02 | DI.US_ITS ---
EXAM: US RENAL CLINICAL HISTORY: RENAL INSUFFICIENCY, N28.9, BPH, HTN, WORSENING RENAL INSUFF. TECHNIQUE: Hannah scale, color and spectral Doppler were used. COMPARISON: CT CT RENAL COLIC WO from 01/25/2019 US US RENAL from 03/26/2019 FINDINGS: Renal size in cm: Right: 10.1 left: 11 Echogenicity: Normal Hydronephrosis: No Cyst or mass: 2.6 centimeter cyst near the upper pole of the right kidney. 8 millimeter cyst in the mid right kidney Nephrolithiasis: 1 point 3 centimeter non-obstructing stone at the lower pole of the right kidney. Q uestion of a tiny stone near the upper pole of the left kidney. Other findings: None Bladder:Nondistended Prevoid vol:6 cc Postvoid vol:Not performed Prostate volume 120 cc IMPRESSION: Enlarged prostate. Nonobstructing stones in the lower pole of the right kidney. No evidence of hydr onephrosis. DATA REPOSITORY:
== END 2020-02-02 01:17 ==
PROVIDERS: PCP Family Medicine; Visit Provider Family Medicine
DX: N40.0 Benign prostatic hyperplasia without lower urinary tract symptoms (principal); I10 Essential (primary) hypertension; N20.0 Calculus of kidney; N28.9 Disorder of kidney and ureter, unspecified
CPT/HCPCS: 76770

== ENCOUNTER 2020-02-09 15:05 | Outpatient (REF) | payer MEDICARE, SELFPAY ==
[2020-02-09 19:46] LABS: Anion Gap 8.3 mmol/L (3-11); BUN 19 mg/dL (7-18); CO2 26.7 mmol/L (21.0-32.0); CREATININE 1.08 mg/dL (0.70-1.30); Calcium 9.1 mg/dL (8.5-10.1); Chloride 106 mmol/L (98-107); Glucose 112 mg/dL (74-106); Sodium 141 mmol/L (136-145)
[2020-02-09 20:07] LABS: PROTEIN 13.9 mg/dL
[2020-02-09 20:08] LABS: COMMENT (LAB VIEW ONLY) 168.34 mg/dL; Prot/Crea Ur Ratio 0.08
== END 2020-02-09 15:25 ==
LOC: NCHCN 15:05
PROVIDERS: PCP Family Medicine; Visit Provider Family Medicine
DX: N28.9 Disorder of kidney and ureter, unspecified (principal)
CPT/HCPCS: 80048; 82565; 84156

== ENCOUNTER 2020-02-18 02:04 | Outpatient (CLI) | payer MEDICARE, SELFPAY ==
[2020-02-20 11:29] LABS: SARS-CoV-2 RNA Not Detected (NotDetected); SARS-CoV-2 RNA Source Nasal/Nares
== END 2020-02-18 02:24 ==
PROVIDERS: PCP Family Medicine; Visit Provider Surgery
DX: Z01.818 Encounter for other preprocedural examination (principal)
CPT/HCPCS: U0003

== ENCOUNTER 2020-02-22 16:17 | Observation (INO) | payer MEDICARE, SELFPAY ==
[2020-02-22] VITALS (81 sets, daily range): BP systolic 91–141; BP diastolic 48–89; PULSE 71–127; RESP 8–32; TEMP 36.1–37.4; O2SAT 90–97
[2020-02-22] MEDS: Lactated Ringers 1,000 ML 80 ML IV ×2 (06:47→11:45)
--- NOTE | 2020-02-22 07:13 | W.PM.DSUDISC ---
Discharge Plan Disposition Patient Disposition: HOME Condition: Good Discharge Details Reason For Visit: Left inguinal hernia repair with mesh Attending Provider: Janet Gill Primary Care Provider: Donald Lazaro Home Meds and New Rx's Prescriptions: New hydrocodone-acetaminophen 5-325 mg Tablet 1 - 2 tab PO Q4H PRN (Reason: Pain) Qty: 15 RF: 0 Continued I-Caps 1 EACH capsule 1 ea PO DAILY RF: 0 losartan 25 mg tablet 25 mg PO HS RF: 0 doxazosin 4 MG tablet 4 mg PO HS RF: 0 Fiber Laxative (methylcellulo) 500 MG tablet 500 mg PO DAILY PRNRF: 0 Discharge Instructions Additional Instructions: The top bandage can be removed tomorrow. The steri strips will usually stick for about a week. When the edges start to curl up, they can be removed. It is okay to shower tomorrow, the water can run over the steri strips Do not swim or soak in a tub for two weeks Call for any concerns including fever, increased pain, vomiting, incision redness or drainage. Do not lift more than 15 pounds for four weeks. Walking and stairs are fine. Do not drive if on narcotic pain meds or if limited by pain. May use Tylenol for pain control. Ice is also an option. The maximum dose for Tylenol is 4000 mg/day. If concerned about constipation, you may use a stool softener or milk of magnesia. Referrals: Janet Gill MD [ [facility] STAFF PHYSICIAN] - (Return in 10-14 days for a postop check) Activity:: Do not lift more than 15 pounds for four weeks Remove Dressings/Wound Care:: 24 hours Shower/Bathe:: 24 hours Diet:: As Tolerated Discharge Orders Discharge Orders: Discharge Order (Routine); Ordered 02/22/20 Ordered By: Janet Gill DS: Diagnosis Discharge Diagnosis (1) Left inguinal hernia: Status: Acute
--- NOTE | 2020-02-22 07:16 | W.PM.OP ---
Date of service: 02/22/20 Time of Service: : Operative Note Operative Note DATE OF PROCEDURE: 02/22/20 PRE-OP DIAGNOSIS: Left inguinal hernia POST-OP DIAGNOSIS: other (Left indirect and direct inguinal hernia) PROCEDURE: Left inguinal hernia repair with mesh SURGEON: Janet Gill DRIVER'S LICENSE REVIEWING OFFICER: Jes Piedra ANESTHESIA: GETA, regional and local Indications: This 79 year old man presents for left inguinal hernia repair. CT showed colon present within the hernia. Procedure Description: The patient was placed supine on the operating table. After induction of general anesthesia a left sided TAP block was placed and then his left groin was prepped and draped sterilely. The ASIS and pubic tubercle were identified and a transverse incision marked between the 2 locations. Local anesthetic was infiltrated and the Ioban placed. Incision was made with knife and subcutaneous tissue divided with cautery down to the external oblique fascia. Any bridging veins that were encountered were clamped, divided and ligated with 3-0 Vicryl ties. A small incision was made in the fascia and extended bluntly through the external inguinal ring. The spermatic cord was dissected free at the level of the pubic tubercle and encircled with a [place] drain. There was a defect within the floor of the inguinal canal with some preperitoneal fat protruding. The floor was reapproximated with interrupted 2-0 prolene suture. Dissection within the cord revealed a large cord lipoma. This was dissected free up to the internal ring and reduced. There is also a very large hernia sac that contained colon. This was dissected free of the cord structures. The sac was opened and the contents reduced. The sac was suture ligated with a 2-0 silk and amputated and reduced. A large mesh plug was sutured into the internal ring with interrupted 2-0 Prolene sutures. A flat sheet of mesh was sutured to the floor of the inguinal canal in standard Lois fashion. The cord was inspected and was not compressed by the mesh. There was good hemostasis. The external oblique fascia was closed with a running 3-0 Vicryl stitch and Sonali's fascia closed with interrupted 3-0 Vicryl sutures. The skin was then closed with a running 4 Monocryl subcuticular stitch. He tolerated the procedure well and was stable to recovery.
[2020-02-22] MEDS: CLINDAMYCIN 900 MG/50 ML BAG 50 MG IVPB (07:32)
[2020-02-22] MEDS: Bupivacaine LIPOSOME/PF 133 MG/10 ML VIAL IJ (07:50)
[2020-02-22] MEDS: Bupivacaine 0.25% Pres-Free 10 ML VIAL (07:50)
[2020-02-22] MEDS: fentaNYL 100 MCG/2 ML VIAL IVP ×3 (10:53→11:23)
[2020-02-22] MEDS: HYDROcodone 5/Acetaminophen 325 TAB PO (11:40)
--- NOTE | 2020-02-22 14:15 | RT.EKG_ITS ---
APPROVED REPORT Exam: Resting ECG Patient Location: O HR:118 bpm ECG Measurements Heart Rate 118 AXIS [place] [id number] P [id number] QRSd 152 QRS -78 QT 391 T 62 QTc 549 Conclusion Supraventricular tachycardia, possibly atrial flutter , rapid V-rate Right bundle branch block...QRSd>120, terminal axis(90,270)
[2020-02-22] MEDS: Metoprolol 5 MG/5 ML VIAL IVP ×3 (15:23→15:41)
[2020-02-22 16:47] LABS: Abs Immature Grans 0.04 10^3/uL (0.0-0.06); Absolute Basophil Count 0.02 10^3/uL (0.0-0.2); Absolute Lymphocyte Count 0.51 10^3/uL (1.2-3.4); Absolute Monocyte Count 0.51 10^3/uL (0.1-0.8); Absolute Neutrophil Count 11.09 10^3/uL (1.2-6.7); Basophils % 0.2; HCT 45.5 % (40.0-50.0); HGB 14.6 g/dL (13.5-17.5); Immature Grans % 0.3; Lymphocytes % 4.2; MCHC 32.1 % (32.0-36.0); MCV 93.4 fL (80-95); MPV 9.6 fL (8.0-11.0); Monocytes % 4.2; Neutrophils % 91.1; Nucleated RBC 0 %; Platelet Count 176 10^3/uL (130-400); RBC 4.87 10^6/uL (4.36-5.78); RDW 13.4 % (11.8-14.1); RDW-SD 46.1 fL; WBC 12.17 10^3/uL (4.4-10.8)
[2020-02-22 16:59] LABS: ALT 24 U/L (16-63); AST 14 U/L (15-37); Albumin 3.9 g/dL (3.4-5.0); Alkaline Phosphatase 88 U/L (46-116); Anion Gap 7.6 mmol/L (3-11); BUN 17 mg/dL (7-18); Bilirubin, Total 0.5 mg/dL (0.2-1.0); CO2 30.4 mmol/L (21.0-32.0); CREATININE 1.41 mg/dL (0.70-1.30); Calcium 9.2 mg/dL (8.5-10.1); Chloride 104 mmol/L (98-107); Estimated GFR 48.49 (mL/min/1.73m2); Glucose 203 mg/dL (74-106); Potassium 4.2 mmol/L (3.5-5.1); Sodium 142 mmol/L (136-145); Total Protein 7.4 g/dL (6.4-8.2)
[2020-02-22 17:03] LABS: Troponin I < 0.05 ng/mL (<0.06)
--- NOTE | 2020-02-22 17:07 | NUR.NOTE ---
Nursing Note: pt arrived in PACU at 1510 from DSU to be monitored bc of abnormal heart activity. RN monitored pt with 1:1 care, heart rhythm remained in junctional, regular rhythm, dropped from 129 to 96 after three doses of lopressor. Brought to ICU as med/surg overflow at 1650. Pt alert, oriented, denies any chest pain, patent #20 RH, VSS.
--- NOTE | 2020-02-22 17:33 | ANES_ITS ---
Date of service: 02/22/20 Time of Service: 17:33 Anesthesia Note Called to DSU to evaluate patient after inguinal hernia repair. Patients intraoperative course was uneventful with general LMA and TAP block. Pt. in phase II requiring nasal cannula oxygen at 2 LPM with SpO2 95%, pain 2/10. Nursing states patient has been consistently tachycardic with HR > 100. Pt. placed on room air with SpO2 90-92% doing IS as well as bedside. He is awake and in no apparent distress, denies chest discomfort butr does state he has a very slight SOB. Heart rate is 110-123. 12 ECG lead was ordered showing a junctional tachycardia. I consulted with ceramic research engineer Dr. Singh who thinks this is an SVT, possibly a-flutter. Recommends up to 3 doses of metoprolol IV to slow rate to identify underlying rhythm. Pt. was moved to PACU for monitoring. 3 doses of 5mg IV metoprolol given. HR slowed to 80's but no discernable P-wave. Confirmed with anesthesia provider that patient was narrow complex SR in OR. Hospitalist consulted, patient will be admitted for observation tonight and plan made.
[2020-02-22] MEDS: Lactated Ringers 1,000 ML 30 ML IV (18:20)
--- NOTE | 2020-02-22 19:29 | W.PM.PROGNOT ---
Date of Service Date of service: 02/22/20 Time of Service: 15:30 Assessment and Plan Assessment and plan (1) Tachycardia: Status: Acute Assessment and plan: He is asymptomatic. Anesthesia has discussed with cardiology. They advised lopressor to see if the rhythm would convert. It resulted in reducing the rate but it remained junctional. Discussed with hospitalist, they advised observation with cardiology consult in the am. Will check labs, keep on telemetry. Patient indicates understanding. Subjective Subjective Interval history since last seen: Patient noted to have tachycardia in DSU. EKG showed junctional rhythm, changed from sinus preop and in OR He denies chest pain or palpitations. Does report having episodes of SOB at home. Incisional pain controlled Exam Narrative Exam Narrative: No distress Heart regular Objective Last Vital Signs Temp 98.6 F 02/22/20 16:50 Pulse 97 H 02/22/20 18:00 Resp 21 02/22/20 18:01 BP 128/83 02/22/20 18:00 Pulse Ox 92 02/22/20 18:01 Laboratory Results - last 24 hr 02/22/20 02/22/20 02/22/20 16:19 16:30 16:30 WBC 12.17 H RBC 4.87 Hgb 14.6 Hct 45.5 MCV 93.4 MCH 30.0 MCHC 32.1 RDW 13.4 Plt Count 176 MPV 9.6 Immature Gran % 0.3 Neutrophils % 91.1 Lymphocytes % 4.2 Monocytes % 4.2 Eosinophils % 0.0 Basophils % 0.2 Nucleated RBC % 0 Absolute Neutrophils 11.09 H Absolute Lymphocytes 0.51 L Absolute Monocytes 0.51 Absolute Eosinophils 0.00 Absolute Basophils 0.02 Sodium 142 Potassium 4.2 Chloride 104 Carbon Dioxide 30.4 Anion Gap 7.6 BUN 17 Creatinine 1.41 H Estimated GFR/1.73 m2 48.49 Glucose 203 H Calcium 9.2 Total Bilirubin 0.5 AST 14 L ALT 24 Alkaline Phosphatase 88 Troponin I < 0.05 Total Protein 7.4 Albumin 3.9
[2020-02-22] MEDS: Doxazosin 2 MG TAB 4 MG PO (21:40)
[2020-02-22] MEDS: Losartan 25 MG TAB PO (21:41)
[2020-02-22 22:21] LABS: Troponin I < 0.05 ng/mL (<0.06)
[2020-02-23] VITALS (66 sets, daily range): BP systolic 105–134; BP diastolic 61–79; PULSE 65–95; RESP 9–30; TEMP 36.7–36.8; O2SAT 88–94
--- NOTE | 2020-02-23 | DI.CT_ITS ---
EXAM: CT CHEST PE CTA CLINICAL HISTORY: low O2 sat/s/p hernia repair/SVT. TECHNIQUE: Imaging Protocol: Axial CT angiography was performed with multi-slice acquisition and mu lti-planar and/or 3D reconstructions. CONTRAST MATERIAL: Intravenous: Omnipaque 350 Contrast volume:83 mL COMPARISON: CT CT RENAL COLIC WO from 01/25/2019 FINDINGS: Pulmonary Arteries: No evidence of filling defect to suggest pulmonary emboli. Tracheobronchial tree: Patent where visualized. Mediastinum and Blanca: No dominant adenopathy or fluid collection. Pulmonary parenchyma: There is atelectasis or scarring in the lung bases bilaterally. No architectur al distortion. Pleura: Small pleural effusions. No pneumothorax. Heart: Mild cardiomegaly. No pericardial effusion. Aorta: Thoracic aorta non-dilated. Atherosclerosis. Upper abdomen: Status post cholecystectomy. Right renal cyst. Bones: Degenerative changes. Soft tissues: Unremarkable. IMPRESSION: No evidence of pulmonary embolism, thoracic aortic dissection or aneurysm. RADIATION DOSE DELIVERED: 557.37mGy.cm Total DLP DATA REPOSITORY: All CT scans at this facility are submitted to the National Radiology Data Registry (NRDR) Dose Index Registry (DIR) with the [employer] (ACR). RADIATION OPTIMIZATION: All CT scans at this facility use at least one of these dose optimization te chniques: automated exposure control; mA and/or kV adjustment per patient size (includes targeted exa ms where dose is matched to clinical indication); or iterative reconstruction.
--- NOTE | 2020-02-23 08:30 | RT.EKG_ITS ---
APPROVED REPORT Exam: Resting ECG Patient Location: I HR:76 bpm ECG Measurements Heart Rate 76 AXIS CO 312 P 38 QRSd 156 QRS -63 QT 444 T 52 QTc 499 Conclusion Sinus rhythm...normal P axis, V-rate 60- 99 Prolonged CO interval...CO >220, V-rate 50- 90 RBBB and LAFB...QRSd >120mS, axis(-40,240)
--- NOTE | 2020-02-23 08:42 | W.PM.PROGNOT ---
Documented by User: SHAW López 02/23/20 08:45 Date of Service Date of service: 02/23/20 Time of Service: 08:42 Assessment and Plan Assessment and plan (1) Tachycardia: Status: Acute Assessment and plan: He is asymptomatic. HR was mid to high 60s while sitting in his chair, conversing with this provider. He is going to get cleaned up with nsg staff, will observe for any cardiac changes with activity Pain is currently well controlled. Increases with activity as expected. Regular diet as tolerated Activity as tolerated Awaiting Cardiology consult. Subjective Subjective Interval history since last seen: Patient reports feeling well this morning. Left sided groin pain increases with activity. Denies having any chest pain or sensation of palpitations. Exam Const General: cooperative, healthy appearing and comfortable Orientation: alert and oriented x3 Resp Effort & Inspection: normal respiratory effort, no audible wheezes and no cough Objective Last Vital Signs Temp 37.4 C 02/22/20 23:54 Pulse 74 02/23/20 06:00 Resp 25 H 02/23/20 06:50 BP 125/73 02/23/20 06:00 Pulse Ox 88 L 02/23/20 06:40 Laboratory Results - last 24 hr 02/22/20 02/22/20 02/22/20 16:19 16:30 16:30 WBC 12.17 H RBC 4.87 Hgb 14.6 Hct 45.5 MCV 93.4 MCH 30.0 MCHC 32.1 RDW 13.4 Plt Count 176 MPV 9.6 Immature Gran % 0.3 Neutrophils % 91.1 Lymphocytes % 4.2 Monocytes % 4.2 Eosinophils % 0.0 Basophils % 0.2 Nucleated RBC % 0 Absolute Neutrophils 11.09 H Absolute Lymphocytes 0.51 L Absolute Monocytes 0.51 Absolute Eosinophils 0.00 Absolute Basophils 0.02 Sodium 142 Potassium 4.2 Chloride 104 Carbon Dioxide 30.4 Anion Gap 7.6 BUN 17 Creatinine 1.41 H Estimated GFR/1.73 m2 48.49 Glucose 203 H Calcium 9.2 Total Bilirubin 0.5 AST 14 L ALT 24 Alkaline Phosphatase 88 Troponin I < 0.05 Total Protein 7.4 Albumin 3.9 02/22/20 21:30 WBC RBC Hgb Hct MCV MCH MCHC RDW Plt Count MPV Immature Gran % Neutrophils % Lymphocytes % Monocytes % Eosinophils % Basophils % Nucleated RBC % Absolute Neutrophils Absolute Lymphocytes Absolute Monocytes Absolute Eosinophils Absolute Basophils Sodium Potassium Chloride Carbon Dioxide Anion Gap BUN Creatinine Estimated GFR/1.73 m2 Glucose Calcium Total Bilirubin AST ALT Alkaline Phosphatase Troponin I < 0.05 Total Protein Albumin Documented by User: Sary Trina Subramanian DO 02/26/20 15:32 Assessment and Plan Assessment and plan (1) ADRY on CPAP: Status: Chronic (2) Low O2 saturation: Status: Acute Assessment and plan: Patient seen and examined. Agree with above. Patient has been up walking around in the room. He has minimal postop pain. He is only taking Tylenol for pain Dr. Segal did see him from a cardiology standpoint and feels that he is safe to go home. He should have a follow-up with her. He is eating lunch. He notes he does not have much appetite. At this point he is also complaining of significant dizziness and says he cannot stand. He is also says he very constipated and has been straining to try to have a bowel movement. He has not had a bowel movement since 2 days before surgery. We discussed how it is important that he does not strain after having a bowel movement after hernia surgery. We will try some mag citrate and see if we can get his bowels moving. I will check back later in the afternoon and see how he is feeling.
--- NOTE | 2020-02-23 08:44 | W.CARDCONSUL ---
Date of service: 02/23/20 Time of Service: 08:44 Assessment and Plan Assessment and plan (1) Tachycardia: Status: Acute Assessment and plan: Patient's dysrhythmia has resolved. He is in sinus rhythm. I recommended that he have a follow-up electrocardiogram today for documentation. At this point I would consider him stable for discharge to outpatient follow-up. We would like to see him in the cardiology clinic within the next several weeks No new medications are recommended No additional inpatient cardiac testing is currently recommended (2) Essential hypertension: Status: None History of Present Illness History of Present Illness Chief Complaint: Supraventricular tachycardia Narrative: Cardiac evaluation is requested in this 79-year-old man who underwent repair of an inguinal hernia yesterday. While being monitored in the postanesthesia care unit he was noted to have supraventricular tachycardia at a rate of 120. An electrocardiogram was performed which showed a predominantly regular rhythm with absent P waves, initially felt to be junctional. It was recommended that the patient be treated with intravenous metoprolol, which was done and he subsequently had heart rates in the 90s. He was brought in overnight for monitoring and currently is in sinus rhythm in the 60s with a blood pressure of 105/70 Patient had no symptoms referable to the dysrhythmia. He specifically denied experiencing palpitations, shortness of breath, chest discomfort dizziness lightheadedness or near syncope. He does not have any documented past history of cardiac disease. He does have an abnormal resting electrocardiogram, with first-degree AV block, left anterior fascicular block, right bundle branch block dating back at least until 2018. He has a history of sleep apnea and hypertension He had a right total hip arthroplasty in 2018 at [facility] which was uneventful He reports significant problems involving back pain. This is being followed at [facility]. He reports that surgery has not been advised He describes exertional shortness of breath present for several months Consults Consult date: 02/23/20 Requesting physician: Janet Gill Review of Systems Cardiovascular Cardiovascular: Reports as per [facility] Medical History Actinic keratosis Calculus of proximal right ureter Degenerative joint disease of left hip Essential hypertension Right kidney stone Spinal stenosis Tendonitis of left rotator cuff Subacromial injection: 05/24/2019 Uric acid stone in urine Surgical History Cholecystectomy History of right hip replacement Family History Mother Neoplasm Breast cancer. Social History Smoking/Tobacco Use Status: Never Smoking risk assessment performed?: Yes Alcohol Intake: never Drug use: Never Substance use type: does not use Household members: spouse Housing: house Number of Children: 2 number of grandchildren: 2 current occupation: Retired Current gender identity: male What type of physical activity do you participate in: walking, independent ambulation and regular exercise Do you feel safe at home: Yes Do you feel safe in your relationship?: Yes Exam Narrative Exam Narrative: Robust and healthy-appearing man, looks younger than stated age Eyes Pupils: PERRL EOM: EOM intact bilaterally Neck Other: Neck is supple trachea is midline carotid pulsations are normal there are no carotid bruits Resp Effort & Inspection: normal respiratory effort Auscultation: clear to auscultation bilaterally Cardio Jugular venous pressure: no JVD Rhythm: regular rhythm Heart Sounds: S1 normal, no gallops and no murmurs Extrem Other: No significant peripheral edema Results Last Vital Signs Temp 37.4 C 02/22/20 23:54 Pulse 74 02/23/20 06:00 Resp 25 H 02/23/20 06:50 BP 125/73 02/23/20 06:00 Pulse Ox 88 L 02/23/20 06:40 Labs Result diagrams: 02/22/20 16:19 02/22/20 16:30 Labs: Laboratory Results - last 24 hr 02/22/20 02/22/20 02/22/20 16:19 16:30 16:30 WBC 12.17 H RBC 4.87 Hgb 14.6 Hct 45.5 MCV 93.4 MCH 30.0 MCHC 32.1 RDW 13.4 Plt Count 176 MPV 9.6 Immature Gran % 0.3 Neutrophils % 91.1 Lymphocytes % 4.2 Monocytes % 4.2 Eosinophils % 0.0 Basophils % 0.2 Nucleated RBC % 0 Absolute Neutrophils 11.09 H Absolute Lymphocytes 0.51 L Absolute Monocytes 0.51 Absolute Eosinophils 0.00 Absolute Basophils 0.02 Sodium 142 Potassium 4.2 Chloride 104 Carbon Dioxide 30.4 Anion Gap 7.6 BUN 17 Creatinine 1.41 H Estimated GFR/1.73 m2 48.49 Glucose 203 H Calcium 9.2 Total Bilirubin 0.5 AST 14 L ALT 24 Alkaline Phosphatase 88 Troponin I < 0.05 Total Protein 7.4 Albumin 3.9 02/22/20 21:30 WBC RBC Hgb Hct MCV MCH MCHC RDW Plt Count MPV Immature Gran % Neutrophils % Lymphocytes % Monocytes % Eosinophils % Basophils % Nucleated RBC % Absolute Neutrophils Absolute Lymphocytes Absolute Monocytes Absolute Eosinophils Absolute Basophils Sodium Potassium Chloride Carbon Dioxide Anion Gap BUN Creatinine Estimated GFR/1.73 m2 Glucose Calcium Total Bilirubin AST ALT Alkaline Phosphatase Troponin I < 0.05 Total Protein Albumin
--- NOTE | 2020-02-23 11:56 | W.PM.DS.N ---
Date of service: 02/23/20 Time of Service: 11:56 DS: Diagnosis Discharge Diagnosis (1) Tachycardia: Status: Acute (2) Essential hypertension: Status: None Discharge Plan Disposition Patient Disposition: HOME Condition: Good Discharge Details Reason For Visit: LEFT INGUINAL HERNIA REPAIR WITH MESH, TACHYCARIDA Admit Date/Time: 02/22/20 16:17 Admit Provider: Janet Gill Attending Provider: Janet Gill Primary Care Provider: Donald Lazaro Home Meds and New Rx's Prescriptions: New hydrocodone-acetaminophen 5-325 mg Tablet 1 - 2 tab PO Q4H PRN (Reason: Pain) Qty: 15 RF: 0 Continued I-Caps 1 EACH capsule 1 ea PO DAILY RF: 0 losartan 25 mg tablet 25 mg PO HS RF: 0 doxazosin 4 MG tablet 4 mg PO HS RF: 0 Fiber Laxative (methylcellulo) 500 MG tablet 500 mg PO DAILY PRNRF: 0 Discharge Instructions Additional Instructions: The top bandage can be removed tomorrow. The steri strips will usually stick for about a week. When the edges start to curl up, they can be removed. It is okay to shower tomorrow, the water can run over the steri strips Do not swim or soak in a tub for two weeks Call for any concerns including fever, increased pain, vomiting, incision redness or drainage. Do not lift more than 15 pounds for four weeks. Walking and stairs are fine. Do not drive if on narcotic pain meds or if limited by pain. May use Tylenol for pain control. Ice is also an option. The maximum dose for Tylenol is 4000 mg/day. If concerned about constipation, you may use a stool softener or milk of magnesia. Stand Alone Forms: Anes.Nerve Block Instructions, [facility] Post op Instructions, Teresita Romero ([facility]) Referrals: Lizbeth Segal MD [ [facility] STAFF PHYSICIAN] - 03/03/20 9:00 am Janet Gill MD [ [facility] STAFF PHYSICIAN] - (Return in 10-14 days for a postop check) Activity:: No lifting over 5 pounds Equipment/Supplies:: No Equipment Needed Diet:: As Tolerated Discharge Orders Discharge Orders: Discharge Order (Routine); Ordered 02/22/20 Ordered By: Janet Gill DS: Summary Status at Discharge Functional status at discharge: independent ambulation Overall status at discharge: patient is progressing back to baseline Mental Status: mental status grossly normal Speech and Movement: speech and movement normal Mood: congruent mood Affect: normal affect Exam Psych Mental Status: mental status grossly normal Speech and Movement: speech and movement normal Mood: congruent mood Affect: normal affect DS: Data Vitals/I&O Vitals and I&O: Vital Signs Temperature 36.8 C 02/23/20 07:30 Temperature Source Temporal Artery Scan 02/23/20 07:30 Pulse 76 02/23/20 08:00 Pulse 78 02/23/20 09:00 Respiratory Rate 25 H 02/23/20 09:00 Respiratory Effort Non-Labored 02/23/20 07:30 Respiratory Depth Normal 02/23/20 07:30 Respiratory Pattern Normal 02/23/20 07:30 Blood Pressure 105/61 02/23/20 08:00 Blood Pressure Mean 73 02/23/20 08:00 Blood Pressure Position Supine 02/22/20 16:50 Pulse Oximetry 88 L 02/23/20 07:30 Respiratory End-tidal CO2 27 02/22/20 15:53 Oxygen Delivery Method Room Air 02/23/20 07:30 Oxygen Flow Rate 0 02/23/20 07:30 Pain Level 0 02/23/20 07:30 Comment pt denies chest pain or pressure. States he feels a little short of breath. Has 2/10 back pain in left back and leg. 02/22/20 15:48 Intake & Output 02/22/20 02/22/20 02/23/20 11:59 23:59 11:59 Intake Total 884.667 / 1204.667 320 / 2456.717 7708 / 1240 Output Total 725 / 725 400 / 400 Balance 884.667 / 479.667 -405 / 479.667 840 / 840 Weight 108 kg 108 kg Intake: IV 884.667 / 400.102 4241 / 1000 Oral 320 / 320 240 / 240 Output: Urine 725 / 725 400 / 400 Other: Urine Color Light Abby Yellow Urine Appearance Clear Clear Urine Odor None None Comment uses finasteride Emesis Description None None Voiding Methods Urinal Urinal Data Completed and Pending Labs on day of discharge: Labs from last 24 hours 02/22/20 02/22/20 02/22/20 21:30 16:30 16:30 WBC RBC Hgb Hct MCV MCH MCHC RDW Plt Count MPV Immature Gran % Neutrophils % Lymphocytes % Monocytes % Eosinophils % Basophils % Nucleated RBC % Absolute Neutrophils Absolute Lymphocytes Absolute Monocytes Absolute Eosinophils Absolute Basophils Sodium 142 Potassium 4.2 Chloride 104 Carbon Dioxide 30.4 Anion Gap 7.6 BUN 17 Creatinine 1.41 H Estimated GFR/1.73 m2 48.49 Glucose 203 H Calcium 9.2 Total Bilirubin 0.5 AST 14 L ALT 24 Alkaline Phosphatase 88 Troponin I < 0.05 < 0.05 Total Protein 7.4 Albumin 3.9 02/22/20 16:19 WBC 12.17 H RBC 4.87 Hgb 14.6 Hct 45.5 MCV 93.4 MCH 30.0 MCHC 32.1 RDW 13.4 Plt Count 176 MPV 9.6 Immature Gran % 0.3 Neutrophils % 91.1 Lymphocytes % 4.2 Monocytes % 4.2 Eosinophils % 0.0 Basophils % 0.2 Nucleated RBC % 0 Absolute Neutrophils 11.09 H Absolute Lymphocytes 0.51 L Absolute Monocytes 0.51 Absolute Eosinophils 0.00 Absolute Basophils 0.02 Sodium Potassium Chloride Carbon Dioxide Anion Gap BUN Creatinine Estimated GFR/1.73 m2 Glucose Calcium Total Bilirubin AST ALT Alkaline Phosphatase Troponin I Total Protein Albumin [facility] Medical History Actinic keratosis Calculus of proximal right ureter Degenerative joint disease of left hip Essential hypertension Right kidney stone Spinal stenosis Tendonitis of left rotator cuff Subacromial injection: 05/24/2019 Uric acid stone in urine Surgical History Cholecystectomy History of right hip replacement Family History Mother Neoplasm Breast cancer. Social History Smoking/Tobacco Use Status: Never Smoking risk assessment performed?: Yes Alcohol Intake: never Drug use: Never Substance use type: does not use Household members: spouse Housing: house Number of Children: 2 number of grandchildren: 2 current occupation: Retired Current gender identity: male What type of physical activity do you participate in: walking, independent ambulation and regular exercise Do you feel safe at home: Yes Do you feel safe in your relationship?: Yes
[2020-02-23] MEDS: Magnesium Citrate 300 ML BTL PO (12:52)
--- NOTE | 2020-02-23 14:23 | PDOC.CMIN ---
- If Service Date Differs Date of service: 02/23/20 Time of Service: 14:23 Care Management Initial Assess REASON FOR HOSPITALIZATION:: Left Inguinal Hernia repair with mesh, Tachycardia PAST MEDICAL HISTORY/PAST SURGICAL HISTORY:: Medical History. Actinic keratosis. Calculus of proximal right ureter. Degenerative joint disease of left hip. Essential hypertension. Right kidney stone. Spinal stenosis. Tendonitis of left rotator cuff. Subacromial injection: 05/24/2019. Uric acid stone in urine. Surgical History. Cholecystectomy. History of right hip replacement PREVIOUS FUNCTIONAL STATUS/SOCIAL/FAMILY SUPPORTS:: Parviz lives in [facility] with his , Juany. 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 He is independent at baseline. CURRENT FUNCTIONAL STATUS:: Parviz was sleeping with his Cpap machine on when CM attempted to meet with him. Per report, he will likely discharge today. He was seen by cardiology and will follow up out patient. CM will continue to follow. ADVANCE DIRECTIVES:: On file, Juany listed as agent. Earlene listed as alternative agent. Has patient been provided with info about the portal/API?: No Did the patient sign up for the portal?: No CODE STATUS:: Full Code INSURANCE COVERAGE / FINANCIAL ISSUES:: [facility] CURRENT HOME/COMMUNITY SERVICES/EQUIPMENT:: No known current services or equipment. PRIMARY CARE PHYSICIAN:: Donald Lazaro POTENTIAL DISCHARGE NEEDS:: Follow up appointments PATIENT/FAMILY EDUCATION NEEDS:: Review discharge instructions regarding activity levels and medications, discussion of self care needs and goals of care. ANTICIPATED BARRIERS TO DISCHARGE:: None identified. TRANSPORTATION:: Via private vehicle by family. PLAN:: Anticipate Parviz will return home when medically cleared. He will be driven home by family via private vehicle. He will follow up with his PCP and discharge plan of care. CM will continue to follow.
[2020-02-23] MEDS: Normal Saline Flush 10 ML SYR IVP (15:47)
[2020-02-23] MEDS: HYDROcodone 5/Acetaminophen 325 TAB PO (16:23)
--- NOTE | 2020-02-23 16:23 | CHAPLAIN ---
Juan said he's not feeling well, but may be discharged later today. He's felling dizzy, he said. (Lexis Garza, RN, said the hospitalist is aware of this Juan was interesting in having his , Juany, visit, but no visitors are allowed at this time. He asked if there could be a VIP exception. He thought it might be helpful to have Juany here to assist him. He has been in touch with her by phone.
[2020-02-23] MEDS: Omnipaque 350 MG/ML 100 ML BTL IJ (17:12)
[2020-02-23] MEDS: Normal Saline - Diluent 50 ML VIAL IV (17:13)
--- NOTE | 2020-02-23 17:20 | DI.VRAD_ITS ---
PROCEDURE INFORMATION: Exam: CT Angiography Chest With Contrast Exam date and time: 02/23/2020 4:50 PM Age: 79 years old Clinical indication: Other: Low o2 sat/ S/P hernia repair/svt TECHNIQUE: Imaging protocol: Computed tomographic angiography of the chest with intravenous contrast. 3D rendering (Not supervised by radiologist): MIP and/or 3D reconstructed images were created by the technologist. Contrast material: OMNIPAQUE 350; Contrast volume: 83 ml; Contrast route: INTRAVENOUS (IV); COMPARISON: CR XR CHEST 2V PA LATERAL 01/25/2019 6:00 AM FINDINGS: Pulmonary arteries: Normal. No pulmonary emboli. Aorta: The aorta demonstrates mild atherosclerotic calcification. The aorta appears otherwise unremarkable. Lungs: There is linear and compressive atelectasis noted in the bilateral lung bases. No acute interstitial or airspace disease is appreciated. Airways are patent. Pleural space: Unremarkable. No pneumothorax. No pleural effusion. Heart: The heart is moderately enlarged. There is calcification of the aortic valve annulus. No pericardial thickening or effusion. There is mild atherosclerotic calcification of the coronary arteries. Mediastinal space: A small hiatal hernia is present. Lymph nodes: Unremarkable. No enlarged lymph nodes. Bones/joints: No acute skeletal pathology. Severe multilevel degenerative changes of the spine, as manifested by multilevel anterior osteophytes and multilevel decrease in intervertebral disc space. Soft tissues: Unremarkable. Other findings: The visualized intra-abdominal structures demonstrate no acute findings. IMPRESSION: 1. No evidence of pulmonary emboli or other acute thoracic pathology. 2. Incidental findings as detailed above. Dictated and Authenticated by: Yoshi Castellon MD. Ordering:TERESA Okeefe MD
== END 2020-02-23 19:05 | disposition home or self-care (01) ==
LOC: ICU 17:55
PROVIDERS: Admitting Provider Surgery; PCP Family Medicine; Visit Provider Surgery
PROC: 0YU60JZ Supplement Left Inguinal Region with Synthetic Substitute, Open Approach (ICD-10-PCS; CPT 49505; principal; 2020-02-22 07:30)
DX: K40.90 Unilateral inguinal hernia, without obstruction or gangrene, not specified as recurrent (principal); D17.6 Benign lipomatous neoplasm of spermatic cord; I10 Essential (primary) hypertension; I97.191 Other postprocedural cardiac functional disturbances following other surgery; I47.1 Supraventricular tachycardia; Y83.8 Other surgical procedures as the cause of abnormal reaction of the patient, or of later complication, without mention of misadventure at the time of the procedure; R09.02 Hypoxemia
CPT/HCPCS: 49505; 71275; 76942; 80053; 99221; 99231; 99232; 99239; 99253; 84484; 85025; 93005; 93010; C1781; G0378; J0131; J1100; J2405; J3010; J3490

== ENCOUNTER → 2020-02-23 07:44 | Outpatient (BNVA) | payer MEDICARE, SELFPAY | PROVIDERS: PCP Family Medicine; Referring Provider Family Medicine; Visit Provider Internal Medicine Cardiovascular Disease | DX: R69 Illness, unspecified (principal) ==

== ENCOUNTER → 2020-03-02 12:59 | Outpatient (BNVA) | payer MEDICARE, SELFPAY | PROVIDERS: PCP Family Medicine; Referring Provider Family Medicine; Visit Provider Internal Medicine Cardiovascular Disease | DX: R00.0 Tachycardia, unspecified (principal); T41.45XA Adverse effect of unspecified anesthetic, initial encounter; Z98.890 Other specified postprocedural states; I10 Essential (primary) hypertension | CPT/HCPCS: 99213 ==

== ENCOUNTER → 2020-03-06 09:40 | Outpatient (BNVA) | payer MEDICARE, SELFPAY | PROVIDERS: PCP Family Medicine; Referring Provider Family Medicine; Visit Provider Surgery | DX: Z48.815 Encounter for surgical aftercare following surgery on the digestive system (principal) ==

== ENCOUNTER 2020-04-10 14:15 | Outpatient (REF) | payer MEDICARE, SELFPAY ==
[2020-04-10 15:28] LABS: Anion Gap 10.7 mmol/L (3-11); BUN 17 mg/dL (7-18); CO2 26.3 mmol/L (21.0-32.0); CREATININE 1.28 mg/dL (0.70-1.30); Calcium 8.6 mg/dL (8.5-10.1); Chloride 107 mmol/L (98-107); Estimated GFR 54.07 (mL/min/1.73m2); Glucose 131 mg/dL (74-106); Potassium 3.8 mmol/L (3.5-5.1); Sodium 144 mmol/L (136-145)
== END 2020-04-10 14:35 ==
LOC: NCHCN 14:15
PROVIDERS: PCP Family Medicine; Visit Provider Family Medicine
DX: I35.0 Nonrheumatic aortic (valve) stenosis (principal)
CPT/HCPCS: 80048

== ENCOUNTER 2020-05-25 14:44 | Outpatient (REF) | payer MEDICARE, SELFPAY ==
[2020-05-25 15:20] LABS: Anion Gap 9.2 mmol/L (3-11); BUN 24 mg/dL (7-18); CO2 28.8 mmol/L (21.0-32.0); CREATININE 1.4 mg/dL (0.70-1.30); Calcium 9.1 mg/dL (8.5-10.1); Chloride 104 mmol/L (98-107); Estimated GFR 48.76 (mL/min/1.73m2); Glucose 111 mg/dL (74-106); Potassium 3.7 mmol/L (3.5-5.1); Sodium 142 mmol/L (136-145)
== END 2020-05-25 14:45 | disposition home or self-care (01) ==
LOC: NCHCN 14:44
PROVIDERS: PCP Family Medicine; Visit Provider Family Medicine
DX: N28.9 Disorder of kidney and ureter, unspecified (principal)
CPT/HCPCS: 80048

== ENCOUNTER 2020-09-14 14:40 | Outpatient (REF) | payer MEDICARE, SELFPAY ==
[2020-09-14 14:23] LABS: HCT 48.6 % (40.0-50.0); HGB 16.1 g/dL (13.5-17.5); MCH 30.1 pg (27.0-33.0); MCHC 33.1 % (32.0-36.0); MPV 10.4 fL (8.0-11.0); Platelet Count 189 10^3/uL (130-400); RBC 5.34 10^6/uL (4.36-5.78); RDW 13.5 % (11.8-14.1); RDW-SD 45.2 fL; WBC 5.86 10^3/uL (4.4-10.8)
[2020-09-14 14:46] LABS: Hemoglobin A1C 5.9 % (<5.7)
[2020-09-14 14:52] LABS: ALT 34 U/L (16-63); AST 23 U/L (15-37); Albumin 4.3 g/dL (3.4-5.0); Alkaline Phosphatase 98 U/L (46-116); BUN 23 mg/dL (7-18); Bilirubin, Total 0.8 mg/dL (0.2-1.0); CREATININE 1.4 mg/dL (0.70-1.30); Calcium 9.3 mg/dL (8.5-10.1); Chloride 105 mmol/L (98-107); Estimated GFR 48.76 (mL/min/1.73m2); Glucose 120 mg/dL (74-106); Potassium 3.9 mmol/L (3.5-5.1); Sodium 144 mmol/L (136-145); Total Protein 7.5 g/dL (6.4-8.2)
== END 2020-09-14 14:41 | disposition home or self-care (01) ==
LOC: NCHCN 14:40
PROVIDERS: PCP Family Medicine; Visit Provider Family Medicine
DX: R53.83 Other fatigue (principal); R73.03 Prediabetes; N18.30 Chronic kidney disease, stage 3 unspecified
CPT/HCPCS: 80053; 85027; 83036; 84443

== ENCOUNTER → 2020-10-05 07:57 | Outpatient (BNVA) | payer MEDICARE, SELFPAY ==
--- NOTE | 2020-10-09 12:41 | W.ANESCON ---
General Date of Service Date of Service: 10/09/20 Reason for Consult Requesting Provider: Alberto Brown How Consult Conducted:: Chart Review Reason for Consult:: H/O tachycardia after hernia repair at [facility] Consult Recommendation after Review:: Patient had an uneventful anesthetic for inguinal hernia repair 02/22/2020, HR 60's to 70's throughout the case. Several hours later in DSU patient tachycardic, rate 110-123, SOB and room air sat 90-92%. Questionable junctional rhythm. Patient received IV metoprolol and admitted overnight. Follow up with cardiology a week later and Dr. Segal felt the rhythm was sinus tachycardia and did not require any further work-up. Patient has had his other hip replaced, and a urologic procedure with no anesthetic issues, (intraop anesthesia records reviewed). We may proceed with scheduled left total hip replacement. Meds Allergies and Home Medications Allergies Allergy/AdvReac Type Severity Reaction Status Date / Time Penicillins Allergy Unknown sometimes, Verified 10/05/20 08:04 the shot, so long ago I can't remember hay AdvReac Mild Uncoded 10/05/20 08:04 Home Medication Medication Instructions Recorded doxazosin 4 mg PO HS 06/23/12 I-Caps 1 ea PO DAILY 05/02/15 Fiber Laxative (methylcellulo) 500 mg PO DAILY PRN 05/01/16 losartan 25 mg tablet 25 mg PO HS 01/25/20 amlodipine 2.5 mg tablet 2.5 mg PO DAILY 10/05/20 celecoxib 200 mg capsule 200 mg PO DAILY #60 cap 10/05/20 finasteride 5 mg tablet 5 mg PO DAILY 10/05/20 hydrochlorothiazide 25 mg tablet 25 mg PO DAILY 10/05/20 [facility] Active Problems Active Problems: Problem Status Onset Code Benign prostatic hyperplasia 06/24/16 N40.0 Postop check Z09 Low O2 saturation R79.81 ADRY on CPAP G47.33, Z99.89 Tachycardia R00.0 Pre-op evaluation Z01.818 Dysphagia R13.10 Spinal stenosis M48.00 Left inguinal hernia K40.90 Actinic keratosis L57.0 Dupuytren's contracture of both hands M72.0 Low back pain M54.5 Tendonitis of left rotator cuff M75.82 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.12 Uric acid stone in urine N20.9 Right kidney stone N20.0 Calculus of proximal right ureter N20.1 Medical History Medical History Actinic keratosis Calculus of proximal right ureter Degenerative joint disease of left hip Essential hypertension Low O2 saturation ADRY on CPAP Right kidney stone Spinal stenosis Tendonitis of left rotator cuff Subacromial injection: 05/24/2019 Uric acid stone in urine Surgical History Surgical History Cholecystectomy History of right hip replacement Tobacco Smoking/Tobacco Use Status: Never Alcohol Alcohol Intake: never Substance Use Substance use: Never Substance use type: does not use Vital Signs & Lab Results Point of Care Results Nursing Point of Care Results: No Data to Display Lab Results Blood Type / Crossmatch: No Data to Display Complete Blood Count: White Blood Count 5.86 10^3/uL (4.4-10.8) 09/14/20 09:30 09/14/20 Red Blood Count 5.34 10^6/uL (4.36-5.78) 09/14/20 09:30 09/14/20 Hemoglobin 16.1 g/dL (13.5-17.5) 09/14/20 09:09/14/20 Hematocrit 48.6 % (40.0-50.0) 09/14/20 09:30 09/14/20 Platelet Count 189 10^3/uL (130-400) 09/14/20 09:30 09/14/20 Complete Metabolic Panel: Sodium Level 144 mmol/L (136-145) 09/14/20 09:09/14/20 Potassium Level 3.9 mmol/L (3.5-5.1) 09/14/20 09:09/14/20 Chloride Level 105 mmol/L (98-107) 09/14/20 09:09/14/20 Carbon Dioxide Level 30.0 mmol/L (21.0-32.0) 09/14/20 09:30 09/14/20 Blood Urea Nitrogen 23 mg/dL (7-18) H 09/14/20 09:30 09/14/20 Creatinine 1.4 mg/dL (0.70-1.30) H 09/14/20 09:30 09/14/20 Estimated GFR/1.73 m2 48.76 (mL/min/1.73m2) 09/14/20 09:09/14/20 Calcium Level 9.3 mg/dL (8.5-10.1) 09/14/20 09:09/14/20 Albumin 4.3 g/dL (3.4-5.0) 09/14/20 09:09/14/20 Glucose Level 120 mg/dL (74-106) H 09/14/20 09:09/14/20 Hemoglobin A1c 5.9 % (<5.7) H 09/14/20 09:09/14/20 Liver Function Panel: Alanine Aminotransferase (ALT/SGPT) 34 U/L (16-63) 09/14/20 09:09/14/20 Aspartate Amino Transf (AST/SGOT) 23 U/L (15-37) 09/14/20 09:09/14/20 Coagulation Panel: No Data to Display Cardiac Panel: No Data to Display Arterial Blood Gas: No Data to Display Venous Blood Gas: No Data to Display Pancreas Panel: No Data to Display Thyroid Panel: Thyroid Stimulating Hormone (TSH) 1.70 uIU/mL (0.36-3.74) 09/14/20 09:09/14/20 Infectious Disease: No Data to Display Blood Cultures: No Data to Display Toxicology Panel: No Data to Display
== END ==
PROVIDERS: PCP Family Medicine; Referring Provider Family Medicine; Visit Provider Student in an Organized Health Care Education/Training Program
DX: M16.12 Unilateral primary osteoarthritis, left hip (principal)
CPT/HCPCS: 99213

== ENCOUNTER 2020-10-19 13:39 | Outpatient (CLI) | payer MEDICARE, SELFPAY ==
--- NOTE | 2020-10-19 13:00 | DI.RAD_ITS ---
Exam(s) XR PELVIS AP EXAM: XR PELVIS AP CLINICAL HISTORY: PRE OP L YAMILET TECHNIQUE: 2D digital imaging was performed. COMPARISON: CR XR HIP LT COMPLETE AP PELVIS from 05/24/2019 FINDINGS: A right hip prosthesis is noted, unchanged. There are severe degenerative changes of the superior l eft hip joint space, with a [id number] appearance. There is periarticular spurring. There is flat tening of the femoral head and remodeling of the acetabulum. The findings have progressed when comp ared with the previous exam. IMPRESSION: Severe degenerative changes the left hip.
== END 2020-10-19 13:40 | disposition home or self-care (01) ==
LOC: DIORS 13:40
PROVIDERS: PCP Family Medicine; Referring Provider Family Medicine; Visit Provider Physician Assistant Surgical
DX: M16.12 Unilateral primary osteoarthritis, left hip (principal); Z01.818 Encounter for other preprocedural examination
CPT/HCPCS: 72170

== ENCOUNTER → 2020-10-20 10:54 | Outpatient (BNVA) | payer MEDICARE, SELFPAY | PROVIDERS: PCP Family Medicine; Referring Provider Family Medicine; Visit Provider Internal Medicine Cardiovascular Disease | DX: R00.0 Tachycardia, unspecified (principal); Z01.810 Encounter for preprocedural cardiovascular examination; I10 Essential (primary) hypertension; G47.33 Obstructive sleep apnea (adult) (pediatric); M16.12 Unilateral primary osteoarthritis, left hip | CPT/HCPCS: 99214 ==

== ENCOUNTER 2020-10-23 03:04 | Outpatient (CLI) | payer MEDICARE, SELFPAY ==
[2020-10-23 12:22] LABS: Source Nasal/Nares
[2020-10-23 16:02] LABS: COVID-19 PCR Negative (Negative)
== END 2020-10-23 03:05 | disposition home or self-care (01) ==
LOC: LBO 03:04
PROVIDERS: PCP Family Medicine; Visit Provider Student in an Organized Health Care Education/Training Program
DX: Z20.822 Contact with and (suspected) exposure to COVID-19 (principal); Z01.818 Encounter for other preprocedural examination
CPT/HCPCS: 87635

== ENCOUNTER 2020-10-23 03:26 | Outpatient (CLI) | payer MEDICARE, SELFPAY ==
[2020-10-23 09:47] LABS: HCT 46.8 % (40.0-50.0); MCH 29.5 pg (27.0-33.0); MCHC 32.1 % (32.0-36.0); MCV 91.9 fL (80-95); MPV 9.9 fL (8.0-11.0); Platelet Count 171 10^3/uL (130-400); RBC 5.09 10^6/uL (4.36-5.78); RDW 13.3 % (11.8-14.1); RDW-SD 45.5 fL; WBC 6.27 10^3/uL (4.4-10.8)
[2020-10-23 11:15] LABS: Anion Gap 10.2 mmol/L (3-11); BUN 25 mg/dL (7-18); CO2 29.8 mmol/L (21.0-32.0); CREATININE 1.3 mg/dL (0.70-1.30); Calcium 9.3 mg/dL (8.5-10.1); Chloride 104 mmol/L (98-107); Estimated GFR 53.12 (mL/min/1.73m2); Glucose 113 mg/dL (74-106); Potassium 3.7 mmol/L (3.5-5.1); Sodium 144 mmol/L (136-145)
== END 2020-10-23 03:27 | disposition home or self-care (01) ==
LOC: LBO 03:26
PROVIDERS: PCP Family Medicine; Visit Provider Student in an Organized Health Care Education/Training Program
DX: M25.552 Pain in left hip (principal); M16.12 Unilateral primary osteoarthritis, left hip; Z01.818 Encounter for other preprocedural examination; Z01.812 Encounter for preprocedural laboratory examination
CPT/HCPCS: 36415; 80048; 85027; 86850; 86900; 86901; 87635

== ENCOUNTER 2020-10-25 16:19 | Observation (INO) | payer MEDICARE, SELFPAY ==
[2020-10-25] VITALS (11 sets, daily range): BP systolic 60–120; BP diastolic 47–76; PULSE 73–107; RESP 12–23; TEMP 35.8–36.5; O2SAT 90–95; BMI 30.9
[2020-10-25] MEDS: Celecoxib 200 MG CAP 400 MG PO (09:06)
[2020-10-25] MEDS: Acetaminophen 500 MG TAB 1000 MG PO ×3 (09:06→20:42)
--- NOTE | 2020-10-25 09:12 | ANES.PREOP_ITS ---
General Info Date of Service Date Performed: 10/25/20 Height: 6 ft 1 in Weight: 106.4 kg Body Mass Index (BMI): 30.9 Surgical Procedure: Operation Date: 10/25/20 10:50 Proposed Procedures Side Surgeon p Hip Total Hip Anterior Left Alberto Brown MD Meds Allergies and Home Medications Allergies Allergy/AdvReac Type Severity Reaction Status Date / Time Penicillins Allergy Unknown sometimes, Verified 10/25/20 08:42 the shot, so long ago I can't remember hay AdvReac Mild Uncoded 10/25/20 08:42 Home Medication Medication Instructions Recorded doxazosin 4 mg PO HS 06/23/12 I-Caps 1 ea PO DAILY 05/02/15 Fiber Laxative (methylcellulo) 500 mg PO DAILY PRN 05/01/16 losartan 25 mg tablet 25 mg PO HS 01/25/20 amlodipine 2.5 mg tablet 2.5 mg PO HS 10/05/20 finasteride 5 mg tablet 5 mg PO HS 10/05/20 hydrochlorothiazide 25 mg tablet 25 mg PO HS 10/05/20 acetaminophen [Tylenol Extra 500 mg PO Q6H PRN #90 tab 10/25/20 Strength] aspirin 81 mg PO BID #60 tab 10/25/20 celecoxib [Celebrex] 200 mg PO BID #60 cap 10/25/20 oxycodone 5 mg PO Q4H PRN #18 tab 10/25/20 pantoprazole [Protonix] 40 mg PO DAILY #30 tab 10/25/20 Current Visit Medications: Current Medications Generic Name Dose Route Start Last Admin Trade Name Freq PRN Reason Stop Dose Admin Acetaminophen 1,000 mg 10/25/20 06:00 10/25/20 09:06 Acetaminophen 500 Mg Tab PO 10/25/20 16:00 1,000 mg PREOP MIGUEL Administration Acetaminophen 1,000 mg 10/25/20 14:00 Acetaminophen 500 Mg Tab PO TID MIGUEL Aspirin 81 mg 10/25/20 20:00 Aspirin E.C. 81 Mg Tabec PO BID MIGUEL Celecoxib 400 mg 10/25/20 06:00 10/25/20 09:06 Celecoxib 200 Mg Cap PO 10/25/20 16:00 400 mg PREOP MIGUEL Administration Celecoxib 200 mg 10/25/20 20:00 Celecoxib 200 Mg Cap PO BID MIGUEL Docusate Sodium 100 mg 10/25/20 07:44 Docusate Sodium 100 Mg Cap PO BID PRN PRN Constipation Hydromorphone HCl 0.5 mg 10/25/20 07:44 Hydromorphone 2 Mg/Ml Vial IVP Q2H PRN PRN Tranexamic Acid 1,000 mg/ 60 mls @ 360 mls/hr 10/25/20 06:00 Sodium Chloride IV 10/25/20 23:59 PREOP MIGUEL Ringer's Solution 1,000 mls @ 80 mls/hr 10/25/20 06:00 IV 11/23/20 23:59 INFUSION MIGUEL Cefazolin Sodium/Dextrose 2 gm in 50 mls @ 100 mls/hr 10/25/20 06:00 Ancef Duplex IVPB 10/25/20 16:00 PREOP MIGUEL Cefazolin Sodium/Dextrose 1 gm in 50 mls @ 100 mls/hr 10/25/20 15:00 Ancef Duplex IVPB 10/26/20 07:29 Q8H MIGUEL IV Miscellaneous Supplies 1 each 10/25/20 06:00 Iv Access IV 11/23/20 23:59 DIRECTED MIGUEL Ondansetron HCl 4 mg 10/25/20 07:44 Ondansetron 4 Mg/2 Ml Vial IVP Q6H PRN PRN Nausea Oxycodone HCl 0 mg 10/25/20 07:44 Oxycodone 5 Mg Tab PO Q3H PRN PRN Pain Pantoprazole Sodium 40 mg 10/26/20 07:30 Pantoprazole 40 Mg Tabcr PO DAILY@0730 MIGUEL Sodium Chloride 0 ml 10/25/20 06:00 Normal Saline Flush 10 Ml Syr IV 11/23/20 23:59 PRN PRN Sodium Chloride 0 ml 10/25/20 06:00 Normal Saline 10 Ml Vial IJ 11/23/20 23:59 DIRECTED PRN Sterile Water 0 ml 10/25/20 06:00 Water,Injection,Sterile 10 Ml Vial IJ 11/23/20 23:59 DIRECTED PRN PFSH Active Problems Active Problems: Problem Status Onset Code Benign prostatic hyperplasia 06/24/16 N40.0 Postop check Z09 Low O2 saturation R79.81 ADRY on CPAP G47.33, Z99.89 Tachycardia R00.0 Pre-op evaluation Z01.818 Dysphagia R13.10 Spinal stenosis M48.00 Actinic keratosis L57.0 Dupuytren's contracture of both hands M72.0 Low back pain M54.5 Tendonitis of left rotator cuff M75.82 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.12 Uric acid stone in urine N20.9 Right kidney stone N20.0 Calculus of proximal right ureter N20.1 Medical History Medical History Actinic keratosis Calculus of proximal right ureter Degenerative joint disease of left hip Essential hypertension Low O2 saturation ADRY on CPAP Right kidney stone Spinal stenosis Tendonitis of left rotator cuff Subacromial injection: 05/24/2019 Uric acid stone in urine Surgical History Surgical History Cholecystectomy History of right hip replacement Left inguinal hernia Tobacco Smoking/Tobacco Use Status: Never Alcohol Alcohol Intake: never Substance Use Substance use: Never Substance use type: does not use Vital Signs and Lab Results Vital Signs Most Recent Vital Signs in EMR: Most Recent Vital Signs Temp Pulse Resp BP Pulse Ox 36.5 C 90 18 107/71 95 10/25/20 08:50 10/25/20 08:50 10/25/20 08:50 10/25/20 08:50 10/25/20 08:50 Lab Results Blood Type / Crossmatch: Patient ABO/Rh O Positive 10/23/20 09:25 10/23/20 Antibody Screen NEGATIVE 10/23/20 09:25 10/23/20 Complete Blood Count: White Blood Count 6.27 10^3/uL (4.4-10.8) 10/23/20 09:25 10/23/20 Red Blood Count 5.09 10^6/uL (4.36-5.78) 10/23/20 09:25 10/23/20 Hemoglobin 15.0 g/dL (13.5-17.5) 10/23/20 09:25 10/23/20 Hematocrit 46.8 % (40.0-50.0) 10/23/20 09:25 10/23/20 Platelet Count 171 10^3/uL (130-400) 10/23/20 09:25 10/23/20 Complete Metabolic Panel: Sodium Level 144 mmol/L (136-145) 10/23/20 09:25 10/23/20 Potassium Level 3.7 mmol/L (3.5-5.1) 10/23/20 09:10/23/20 Chloride Level 104 mmol/L (98-107) 10/23/20 09:10/23/20 Carbon Dioxide Level 29.8 mmol/L (21.0-32.0) 10/23/20 09:10/23/20 Blood Urea Nitrogen 25 mg/dL (7-18) H 10/23/20 09:25 10/23/20 Creatinine 1.3 mg/dL (0.70-1.30) 10/23/20 09:10/23/20 Estimated GFR/1.73 m2 53.12 (mL/min/1.73m2) 10/23/20 09:10/23/20 Calcium Level 9.3 mg/dL (8.5-10.1) 10/23/20 09:10/23/20 Glucose Level 113 mg/dL (74-106) H 10/23/20 09:25 10/23/20 Liver Function Panel: No Data to Display Coagulation Panel: No Data to Display Cardiac Panel: No Data to Display Arterial Blood Gas: No Data to Display Venous Blood Gas: No Data to Display Pancreas Panel: No Data to Display Thyroid Panel: No Data to Display Infectious Disease: Coronavirus (COVID-19)(PCR) Negative (Negative) 10/23/20 08:25 10/23/20 Coronavirus 2019 Source Nasal/Nares 10/23/20 08:25 10/23/20 Blood Cultures: No Data to Display Toxicology Panel: No Data to Display Imaging and Studies Imaging and Studies EKG Summary: 10/20/2020 Conclusion Sinus rhythm...normal P axis, V-rate 50- 99 Prolonged MO interval...MO >220, V-rate 50- 90 Right bundle branch block...QRSd>120, terminal axis(90,270) LAFB Anesthesia Assessment and Plan Anesthesia History Personal History: No History of Anesthesia Complications and Other (Post operative tachycardia and dyspnea in PACU post hernia repair) Family History: No Family History of Anesthesia Complications Exercise Tolerance Exercise Tolerance: Metabolic Equivalents<4 Pertinent Negatives Pertinent Negatives: No Symptoms of GERD, No Major Pulmonary Symptoms or Complaints and No History of CVA/TIA Cardiac & Pulmonary Exam Cardiac Exam: Normal S1/S2 Heart Sounds Pulmonary Exam: Clear Bilateral Breath Sounds Cardiac and Pulmonary Comment:: Complaint of increasing fatigue and RAMOS. Patient seen by Luzma with cardiology and felt no additional cardiac workup needed. Airway Exam Known Difficult Airway: No Mallampati Class: 2 Mouth Opening: Normal (> 3cm) Thyromental Distance: Greater than 3 cm Neck Range of Motion: Full ROM Neck Circumference: Normal Teeth Condition: Normal Dentition ASA Classification ASA Score: ASA 3 Emergency Case?: No NPO Status NPO Status: NPO Clears >2 hours, Solids >8 hours Anesthesia Plan Resuscitation Status: Full Code Anesthesia Technique: Spinal Anesthesia Airway Planned: Natural Airway Monitors Used: Standard Monitors Preoperative Comments:: Discussed increased risk of nerve damage, cauda equina syndrome, and increased risk of worsening radiculopathy with patient and spouse. Due to moderate canal stenosis, and not severe, I do not believe the risk is unacceptable and patient preference of spinal today.
[2020-10-25] MEDS: Lactated Ringers 1,000 ML 80 ML IV ×2 (09:14→19:42)
[2020-10-25] MEDS: ceFAZolin 2 GM/50 ML BAG IVPB (13:07)
[2020-10-25] MEDS: Ketorolac 30 MG/ML VIAL (14:05)
[2020-10-25] MEDS: Bupivacaine 0.25% Pres-Free 30 ML VIAL (14:05)
--- NOTE | 2020-10-25 14:36 | DI.RAD_ITS ---
Exam(s) XR HIP LT IN OR EXAM: XR HIP LT IN OR CLINICAL HISTORY: DJD OF LEFT HIP. TECHNIQUE: 2D and realtime digital imaging was performed. COMPARISON: No exams were available for comparison FINDINGS: Fluoroscopy was provided for in the OR for Dr. Brown. Hard copy images show placement of a left h ip prosthesis. The alignment appears satisfactory. Please see procedure note for details. Fluoro time 41.9 seconds. RADIATION DOSE DELIVERED: mike Clark=7.24 mGy
--- NOTE | 2020-10-25 14:47 | ROE_ITS ---
Date of service: 10/25/20 Time of Service: 14:47 Operative Note Operative Note DATE OF PROCEDURE: 10/25/20 PRE-OP DIAGNOSIS: Left Hip Osteoarthritis POST-OP DIAGNOSIS: same PROCEDURE: Left Anterior Total Hip Arthroplasty with intraoperative navigation SURGEON: Alberto Brown INSURANCE FOLLOW UP REP: Ree Hester ANESTHESIA TYPE: General LMA/ETT and Spinal Refer to Anesthesia Record ESTIMATED BLOOD LOSS: 350 PATHOLOGY: none sent COMPLICATIONS: None Patient was transported to: PACU Patient's condition: stable Implants: 1. Depuy Chandler Acetabular Component, 58mm 2. Depuy Acetabular Liner, [id number] 3. Depuy Corail Standard Collared Femoral Stem, Size 16 4. Depuy Altrx Ceramic Femoral Head, Size 36+1.5mm Indications: I have seen Parviz in clinic for symptoms of hip arthritis, confirmed with radiographic findings. He has exhausted nonoperative methods and was having significant limitations in daily function and desired better function and less pain. I discussed the technical details of a hip replacement. I explained the risks of the procedure to include, but not limited to, bleeding, infection, pain, stiffness, fracture, damage to nerves and vessels, damage to muscles and tendons, loosening, instability, leg length inequality, need for repeat procedure, blood clot and cardiopulmonary demise. Despite these risks, Parviz elected to proceed. Findings: There was significant signs of arthritis throughout the hip with large osteophytes around the femoral neck and the acetabulum. Procedure Description: Parviz was greeted in the preoperative holding area where the correct side was identified and marked. The consent was reviewed with the patient and signed. The history and physical was updated. All questions were answered. He was taken back to the operating room. A spinal anesthestic was then administered. The feet were wrapped with cast padding and Coban and then placed into the boot liners and then into the boots. Care was taken to protect the skin and make sure the heels were fully down and the boots were stable. The patient was then positioned onto the HANA table. Both legs were held in a neutral position. SCDs were applied. The patient was then slid down onto a peroneal post. Prophylactic antibiotics in the form of Cefazolin were administered. 1g of Tranxemic Acid was given intravenously within 30 minutes of incision. The left leg was then prepped with Chloraprep and draped in a standard fashion. A second prep with Chloraprep was performed prior to placement of a shower-curtain type drape with Iodine impregnated skin protect ion. A timeout to confirm correct identity, side and site, procedure, allergies, anesthesia, and medical concerns was performed. An obliquely oriented incision was made starting lateral to the ASIS and running distal over the Tensor Fascia Mari (TFL) muscle belly toward the fibular head, approximately 10cm. The skin and soft tissue was dissected sharply, through Sonali?s fascia, and to the fascia of the TFL. With the fascia and superior border of the IT band identified, the fascia was incised with a new knife just above any perforators from the IT band. The TFL muscle belly was bluntly di ssected away from the fascia and moved laterally. The fat between TFL and rectus was identified to ensure the dissection was not within the TFL. Blunt dissection created space between abductors and the capsule and retractor was placed over the lateral femoral neck. The fibers of the rectus femoris tendon were identified and these were freed from the anterior capsule. A second cobra retractor was placed around the medial femoral neck. The TFL was further retracted laterally to show the deep fascia. Careful dissection through this layer identified three main crossing vessels of the lateral femoral circumflex. These were cauterized in multiple locations and then cut without any noticeable bleeding. The TFL was further released bluntly from the deep fascia to expose anterior hip capsule and fat The Kirt orthopaedic retractor was then placed beneath the TFL and against sartorius and medial soft tissues to protect and retract the soft tissues. A T-capsulotomy was then performed starting at the superior lateral acetabulum and moving distally to the intertrochanteric ridge. These capsular flaps were tagged with a No. 1 Ethibond and elevated from within. The capsular flaps were released to the shoulder of the lateral neck and to the lesser trochanter to give excellent visualization of the proximal femur. A neck osteotomy was performed using an oscillating saw based on preoperative templates. This cut started in the shoulder and of the lateral neck and exited medially. The saw was at all times directed medially to avoid injury to the greater trochanter. Gross traction was applied to the leg and the osteotomy opened. The femoral head was removed with a corkscrew, making sure to protect the TFL on its exit. Traction was released after head removal. This was m easured on the back table to determine the starting reamer size. Portions of the rectus obscuring visualization were minimally elevated off the superior acetabulum. An anterior retractor was placed over the anterior wall between capsule and labrum and attached to the Gripper retraction system. The femur was rotated to 90 degrees and medial capsule was fully released until the lesser trochanter was palpable and visible; the femur was returned to 30 degrees. A posterior retractor was placed similarly between capsule and labrum. This provided excellent visualization. The contents of the cotyloid fossa were removed with electrocautery and the labrum was removed with a knife. There was a notable floor osteophyte. There was significant chondromalacia of the superior acetabulum. Acetabular reaming began with a 54mm reamer. This first reaming was directed anterior to posterior and medial to get down to the true floor. This was inspected and reamed until the true floor was reached. The anterior retractor was then released and entry and exit was provided by traction on the capsular flaps. I then reamed sequentially up to a 58mm reamer where good fit was obtained. The larger reamers were oriented based on anatomical reference of the anterior and lateral carrillo to ensure proper abduction and anteversion. Positioning and size was confirmed with the fluoroscopy. A 58mm Depuy Chandler acetabular component was selected. The deep tissues were irrigated. The acetabular component was then impacted in a position of about 40-45 degrees of abduction and 15-20 degrees of anteversion, using the patient?s anatomy as the ultimate landmark. Fluoroscopy was used to confirm this. There was excellent guest advisor of the acetabular component and the inserting handle was removed. I then used a curved osteotome to remove posterior and inferior osteophytes. The superior osteophytes were left intact as they were not impinging. The acetabular liner, Depuy [id number] polyethylene liner, was inserted and lined up with the tines of the acetabular component. There was no soft tissue interposition. The liner was then impacted into position and confirmed to be well-seated. A portion of the arun-articular cocktail was then injected around the acetabulum into the capsule and periosteum. This cocktail consisted of 50cc of 0.25% Bupivicaine and 20cc of Exparel and 30mg of Ketorolac. The leg was rotated to 120 degrees. Any remaining medial capsule was released until the lesser trochanter was easily palpable. A retractor was placed medially. The lateral capsule was further released into the shoulder to allow access to the greater trochanter. A Flores retractor was placed over the greater trochanter which allowed the trochanter to flip in front of the capsule for excellent exposure. The leg was brought down into maximal extension and 20 degrees of adduction while ensuring there was no impingement on the acetabulum. Any remnant capsule within the trochanter was released. Piriformis and obturator externis were identified and protected. There was excellent access to the proximal femur. The lateral neck remnant was removed with a rongeur. A blunt canal probe was used to identify the canal and trajectory for later broaching. A box osteotome initiated the broach course. A small curved rasp and a curved curette were used to work laterally. Broaching then began with a size 8 Corail broach. This was inserted manually around the trochanter and into the canal before mallet blows. The broach was seated to a few millimeters below the cut level based on the neck cut and the preoperative template. Sequential broaching was continued with the [employer] pneumatic broaching device until a tight fit was obtained with good rotational control of the femur. A trial standard neck was inserted along with a +1.5 trial head. The leg was brought out of extension and adduction and then reduced with traction and internal rotation. The leg was stable anteriorly in a position of 30 degrees of extension and 90 degrees of external rotation. Fluoroscopy was used to ensure there was no fracture and the stem was seated well. Leg lengths were checked with an AP pelvis and pelvic reference points. Fixber navigation system was used to confirm appropriate positioning and leg length and offset. Once content with the desired offset and leg lengths, the leg was brought back into extension, external rotation and adduction. The periosteum and surrounding tissue was injected with remaining portion of the arun-articular cocktail. The proximal femur was irrigated as well as the deep tissues. The Depuy Corail standard collared stem, size 16, was then manually inserted into the proximal femur making sure to control rotation. It was then malleted into position with light blows, giving breaks to allow bone expansion and decrease risk of fracture. The selected Depuy Altrx Ceramic Head, size 36+1.5mm, was then placed onto the clean and dry trunnion and secured with impaction onto the tapered fit. The leg was brought back out of extension and adduction and reduced with traction and internal rotation. Stability was confirmed with no shuck at 90 d egrees of external rotation and 30 degrees of extension. No impingement through range of motion arc. Final x-ray images were obtained with fluoroscopy to confirm adequate positioning and no intraoperative fracture. The deep tissues were thoroughly irrigated with Irrisept chlorhexadine solution. The second dose of TXA 1g was administered intravenously.The capsule was then reapproximated with the previously placed Ethibond sutures. The TFL fascia was finally closed with a No. 2 Stratafix, barbed suture. Deep tissues were then reapproximated with 0 Vicryl and a running 2-0 Vicryl. The skin was closed with a running 4-0 Monocryl in a subcuticular fashion. This was reinforced with skin glue. A Mepilex silver dressing was applied. At the end of the case, all counts were correct. Parviz was transferred to the hospital bed without difficulty and suffering no apparent complication. Parviz has a good prognosis. Physical therapy will start today and without restrictions, weight-bearing as tolerated. Aspirin 81mg BID will be used for DVT prophylaxis.
--- NOTE | 2020-10-25 16:31 | W.ANESPOSTOP ---
Postoperative Evaluation Date, Time and Location Date Performed: 10/25/20 Time Performed: 16:31 Patient Location: PACU Vital Signs Most Recent Imported Vital Signs: Most Recent Vital Signs Temp Pulse Resp BP Pulse Ox 36.2 C L 88 22 104/66 94 10/25/20 16:15 10/25/20 16:15 10/25/20 16:15 10/25/20 16:15 10/25/20 16:15 Pain Score Most Recent Pain Score: Most Recent Pain Score Pain Level 0 10/25/20 16:15 Assessment Mental Status: Awake (Alert & Oriented to Patient Baseline) Airway and Respiratory Function: Patent airway with normal (patient baseline) respiratory exam Cardiovascular Function: Hemodynamically Stable Hydration Status: Adequately Hydrated Nausea & Vomiting: No Nausea or Vomiting Pain: Pain is tolerable per patient Peripheral Nerve Block: Patient did not receive a nerve block Postoperative Comments:: Patient encouraged to continue use of IS. Discussed patient with Dr. Brown and plan for potential OBS overnight.
--- NOTE | 2020-10-25 17:30 | PT.INIE ---
Date of service: 10/26/20 Time of Service: 05:30 PT Notes Visit Reasons: Left YAMILET Physical Therapy Inpatient Initial Evaluation Date: Referring Doctor: SHAW Delatorre and PT Orders: PT CONSULT: S/P Ortho Surgery Precautions: WBAt on L LE with L LE with AD. Patient Profile/Admitting Diagnosis: Parviz is an 80-year-old male with degenerative joint disease of the left hip and is status post left total knee arthroplasty on postoperative day 0. PMHX: Medical History Actinic keratosis Calculus of proximal right ureter Degenerative joint disease of left hip Essential hypertension Low O2 saturation ADRY on CPAP Right kidney stone Spinal stenosis Tendonitis of left rotator cuff Subacromial injection: 05/24/2019 Uric acid stone in urine Surgical History (Updated 10/19/20 @ 13:14 by Sary Jiménez) Cholecystectomy History of right hip replacement Left inguinal hernia Social History/Home Situation: Lives with in a private home with 4-steps to enter. Bedroom is on the second floor of the house but he has a room ready on the first floor of the house. Equipment Owned/DME: FWW Subjective: Reports 4/10 pain in the L hip at rest. [place] a little better after walking with 2-3/10 pain. in same location. Objective: General Observation: IV access in the L UE. Mepilex Ag over surgical incision. TEDS on B legs. Mental Status: Alert and oriented x 4 Pain: 4/10 at rest, 2-3/10 with movement ROM: Right Upper Extremity: Shoulder Flexion WFL. Shoulder abduction WFL. Elbow flexion WFL. Wrist flexion WFL. Functional opening and closing of hand WFL. Left Upper Extremity: Shoulder Flexion WFL. Shoulder abduction WFL. Elbow flexion WFL. Wrist flexion WFL. Functional opening and closing of hand WFL. Right Lower Extremity: Hip flexion WFL. Hip abduction WFL. Knee flexion WFL. Ankle dorsiflexion WFL. Ankle plantarflexion WFL. Left Lower Extremity: Hip flexion WFL. Hip abduction WFL. Knee flexion WFL. Ankle dorsiflexion WFL. Ankle plantarflexion WFL. Strength: Right Upper Extremity: Shoulder flexors 5/5. Shoulder abductors 5/5. Elbow flexors 5/5. Elbow extensors 5/5. Hull Line Crew Member strong. Left Upper Extremity: Shoulder flexors 5/5. Shoulder abductors 5/5. Elbow flexors 5/5. Elbow extensors 5/5. Hull Line Crew Member strong. Right Lower Extremity: Hip flexors 5/5. Hip abductors 5/5. Knee flexors 5/5. Knee extensors 5/5. Ankle dorsiflexors 5/5. Ankle plantarflexors 5/5. Left Lower Extremity: Hip flexors 4/5. Hip abductors 4/5. Knee flexors 4/5. Knee extensors 4/5. Ankle dorsiflexors 5/5. Ankle plantarflexors 5/5. Sensation: Intact as to pain and light pressure andin bilateral lower extremities Bed Mobility/Transfers: Supine to sit stand by assist Sit to stand stand by assist Stand to sit stand by assist Bed to chair stand by assist Gait: Guided patient through level surface ambulation of up to 250 feet using the FWW with contact guard assist. Mild antalgia on L. Decreased steven. Denies dizziness. Oxygen saturation at 94% on RA. Balance: Static Sitting: Normal Dynamic Sitting: Normal Static Standing: Fair Dynamic Standing: Fair Special Tests: Mobility Limitations Standardized Measure [facility] AM-PAC 6 clicks Basic Mobility Inpatient Short Form: Raw Score: 20 CMS Score: 29% deficit Informed Consent/Education: Patient was instructed in purpose of PT consult and plan of care. Agreeable to proceed with established PT POC to achieve personal goals. Assessment: Minimal antalgia noted on L LE during midstance. Pain level manageable with movement. Only required CGA-SBA with mobility assessment. Will have support of and family at home. Has needed equipment. HAS good safety awareness. Patient presents with clinical signs and symptoms consistent with current/admitting diagnoses that have resulted to mobility limitations, gait instability, generalized weakness, and impairment of motor control as demonstrated by the following impairment level findings: 1. Decreased strength to left hip major muscle groups 2. Impaired standing balance Impairments are contributing to the following functional limitations: 1. Inability to safely ambulate without assistive device 2. Increase completion time for mobility ADL performance Patient is assessed as a 57129 moderate complexity based on the following: History: -year-old male with impairment level findings, functional limitations, and past medical history as indicated above Examination: Demonstrable impairment in strength, balance, and mobility level with underlying impairments and functional limitations as documented above Presentation: Evolving Decision Makin moderate complexity Goals X1 week 1. Supine-Sit independent 2. Sit-Supine independent 3. Sit-Stand independent 4. Stand-Sit independent with FWW 5. Bed-Chair independent with FWW 6. Chair-Bed independent with FWW 7. Independent gait on level surface with use of 3 oh00 for at least 300 feet without report of pain nor dyspnea 8. Independent stair negotiation while holding onto 1 rail for at least 4 steps without report of pain nor dyspnea 9. Independent with home exercise program 10. Good static and dynamic standing balance/tolerance Plan of Care/Treatment Plan: 1-2x/day, 7 days/week x 1 week. Plan of care has been reviewed with the BIOLOGICAL SCIENCE TECHNICIAN providing the service under Physical Therapy direction. Initiate Physical Therapy intervention for pain management as needed, strengthening, bed mobility, transfers, gait, stairs, balance training, and use of assistive device. DISCHARGE RECOMMENDATIONS: Home when cleared by orthopedic surgeon. OP PT services to facilitate independent community ambulation without an AD. TREATMENT CODE/TIME: 67856 x 20 minutes, 84307 x 13 minutes beginning at 17:30 PM. Thank you for the opportunity to participate in the care of this patient. Katie Kebede PT, DPT, CLT [facility] [place], [place]
[2020-10-25] MEDS: Aspirin E.C. 81 MG TABEC PO (20:42)
[2020-10-25] MEDS: ceFAZolin 1 GM/50 ML BAG IVPB (20:43)
[2020-10-25] MEDS: Celecoxib 200 MG CAP PO (20:43)
[2020-10-25] MEDS: amLODIPine 2.5 MG TAB PO (21:37)
[2020-10-25] MEDS: Finasteride 5 MG TAB PO (21:38)
[2020-10-26 03:01] VITALS: BP 95/57; PULSE 84; RESP 18; TEMP 36.3; O2SAT 94
[2020-10-26] MEDS: ceFAZolin 1 GM/50 ML BAG IVPB (04:10)
[2020-10-26 07:02] VITALS: BP 111/69; PULSE 91; RESP 20; TEMP 36.4; O2SAT 93
[2020-10-26] MEDS: Aspirin E.C. 81 MG TABEC PO (08:08)
[2020-10-26] MEDS: Pantoprazole 40 MG TABCR PO (08:08)
[2020-10-26] MEDS: Celecoxib 200 MG CAP PO (08:08)
[2020-10-26] MEDS: Acetaminophen 500 MG TAB 1000 MG PO (08:08)
--- NOTE | 2020-10-26 08:13 | PT.INTREAT ---
Date of service: 10/26/20 Time of Service: 07:40 PT Notes Visit Reasons: Left YAMILET Inpatient Physical Therapy Treatment Note [facility] Date: 10/26/2020 PRECAUTIONS: WBAT L SUBJECTIVE: Parviz states that he feels pretty good today, that he feels ready to discharge to home today. OBJECTIVE: PAIN: Patient reports 1/10 pain in L hip prior to PT session, reporting an increase to 2/10 post PT session BED MOBILITY/TRANSFERS Supine-sit: I with HOB flat Sit-stand: I Stand-sit: I GAIT Assistive Device: FWW Weight bearing: WBAT L Assist: S Distance: 200' THEREX: Patient was instructed in a LE strengthening and stabilization program, completed in a supine position, as per flow sheet. STAIRS: Up/down 6x4 and 4x6 using B rails and a step-to pattern with supervision ASSESSMENT: Patient tolerated session well without complaint. He was able to tolerate stair negotiation with supervision only, and demonstrates independence with transfers and bed mobility at this time. PLAN: Patient to discharge to home later today, per provider. TREATMENT CODE/TIME: 20 minutes; 11815 (07:40)
--- NOTE | 2020-10-26 10:42 | W.PM.DS.N ---
Date of service: 10/26/20 Time of Service: 10:42 DS: Diagnosis Discharge Diagnosis (1) Degenerative joint disease of left hip: Status: Acute Discharge Plan Disposition Patient Disposition: HOME Condition: Stable Discharge Details Reason For Visit: Left YAMILET Admit Date/Time: 10/25/20 16:19 Admit Provider: Alberto Brown Attending Provider: Alberto Brown [facility] Course: Patient was admitted to the medical/surgical floor following the procedure. The surgery was tolerated well without any notable medical, surgical, or anesthetic complications. Mobilization began postoperatively. He was voiding spontaneously. Vitals were stable. Physical therapy worked with the patient and was cleared for discharge home. No acute medical issues. Pain was controlled on oral regimen. Home Meds and New Rx's Prescriptions: New celecoxib [Celebrex] 200 mg capsule 200 mg PO BID Qty: 60 RF: 0 aspirin 81 mg tablet,delayed release (DR/EC) 81 mg PO BID Qty: 60 RF: 0 acetaminophen [Tylenol Extra Strength] 500 mg tablet 500 mg PO Q6H PRNQty: 90 RF: 0 pantoprazole [Protonix] 40 mg tablet,delayed release (DR/EC) 40 mg PO DAILY Qty: 30 RF: 0 oxycodone 5 mg tablet 5 mg PO Q4H PRNQty: 18 RF: 0 Continued amlodipine 2.5 mg tablet 2.5 mg PO HS RF: 0 hydrochlorothiazide 25 mg tablet 25 mg PO HS RF: 0 finasteride 5 mg tablet 5 mg PO HS RF: 0 I-Caps 1 EACH capsule 1 ea PO DAILY RF: 0 losartan 25 mg tablet 25 mg PO HS RF: 0 doxazosin 4 MG tablet 4 mg PO HS RF: 0 Fiber Laxative (methylcellulo) 500 MG tablet 500 mg PO DAILY PRNRF: 0 Discontinued celecoxib 200 mg capsule 200 mg PO DAILY Qty: 60 RF: 0 Discharge Instructions Additional Instructions: Total Hip Discharge Instructions Activity: The most important activity is to walk. You should try to take short walks a few times a day. You have no restrictions on movement or positioning, but do not try to force what you do. You will find some stiffness and weakness with hip flexion (lifting your knee). Do not try to strengthen this too early, continue to practice walking and stairs and this will come. - Outpatient physical therapy can be helpful to help return you to a normal gait and improve your flexibility and strength. This can start around 2 weeks. For some patients, it?s not necessary. Usually this is determined at the time of discharge or at the first post-operative visit. - You should wear the CHIARA hose on both legs for 2 weeks. Dressing: Keep the surgical dressing in place for at least one week. After the first week it may be removed and replace with light gauze and tape or nothing. It may get wet after 3 days but avoid soaking the dressing. If it gets wet, just lightly pat dry. It is important to always keep some gauze between skin folds, especially when you are sitting. Spend some time with the wound exposed when you are lying flat as the incision does wrinkle onto itself. Medications: - You should take Tylenol and an anti-inflammatory Celebrex as your primary pain control medications. If the Celebrex is too expensive or not covered, please call the office for another alternative (Advil/Ibuprofen or Naproxen/Aleve). Take the Celebrex just as needed to avoid stomach issues and take the Pantoprazole to minimize stomach issues. - You have been prescribed a stronger pain medication Oxycodone for breakthrough pain, take as needed as prescribed. - You have also been prescribed a stomach acid reduction agent Pantoprozole to help reduce stomach acid and reflux. - You will be taking Aspirin 81mg twice a day for DVT prevention unless instructed otherwise. - If you have constipation you should take Colace or Miralax (both [id number]). It takes most people 3-4 days to have a bowel movement. Follow-up: 2 weeks If you have any acute concerns or questions, please do not hesitate to contact the office at [phone]. You may contact Dr. Brown with any questions after hours through the hospital at [phone] or on his cell phone at [phone]. Stand Alone Forms: Nursing Discharge Form Referrals: Alberto Brown MD [ [facility] STAFF PHYSICIAN] - 11/09/20 9:15 am Activity:: Activity as Tolerated Equipment/Supplies:: Walker Diet:: As Tolerated Discharge Orders Discharge Orders: Discharge Order (Routine); Ordered 10/26/20 Ordered By: Alberto Brown Discharge Data Discharge Date/Time-TO BE ENTERED AT DEPARTURE: 10/26/20 11:27 DS: Summary Time Spent with Patient providing and/or coordinating discharge services: Less than 30 minutes Status at Discharge Functional status at discharge: uses cane/walker Overall status at discharge: patient is progressing back to baseline Mental Status: mental status grossly normal Speech and Movement: speech and movement normal Mood: congruent mood Affect: normal affect Exam Narrative Exam Narrative: Sitting up and comfortable in the hosptial bed. Hip dressing is c/d/i. No significant pain with hip ER/IR. SILT SP/DP/Tib. Psych Mental Status: mental status grossly normal Speech and Movement: speech and movement normal Mood: congruent mood Affect: normal affect DS: Data Vitals/I&O Vitals and I&O: Vital Signs Temperature 36.4 C L 10/26/20 07:02 Temperature Source Tympanic 10/26/20 07:02 Pulse 91 H 10/26/20 07:02 Pulse Rhythm Regular 10/26/20 08:17 Respiratory Rate 20 10/26/20 07:02 Respiratory Effort Non-Labored 10/26/20 08:17 Respiratory Depth Normal 10/26/20 08:17 Respiratory Pattern Normal 10/26/20 08:17 Blood Pressure 111/69 10/26/20 07:02 Pulse Oximetry 93 10/26/20 07:02 Respiratory End-tidal CO2 25 10/25/20 16:15 Oxygen Delivery Method Room Air 10/26/20 07:02 Oxygen Flow Rate 0 10/26/20 07:02 Pain Level 2 10/26/20 08:08 Comment 10/25/20 19:45 [facility] Medical History Actinic keratosis Calculus of proximal right ureter Degenerative joint disease of left hip Essential hypertension Low O2 saturation ADRY on CPAP Right kidney stone Spinal stenosis Tendonitis of left rotator cuff Subacromial injection: 05/24/2019 Uric acid stone in urine Surgical History Cholecystectomy History of right hip replacement Left inguinal hernia Family History Mother Neoplasm Breast cancer. Social History Smoking/Tobacco Use Status: Never Smoking risk assessment performed?: Yes Alcohol Intake: never Drug use: Never Substance use type: does not use Household members: spouse Housing: house Number of Children: 2 number of grandchildren: 2 current occupation: Retired Current gender identity: male What type of physical activity do you participate in: walking, independent ambulation and regular exercise Do you feel safe at home: Yes Do you feel safe in your relationship?: Yes Additional Social history: unable to assess [place]
--- NOTE | 2020-10-26 10:43 | PDOC.DSDIS_ITS ---
Documented by User: SHAW Delatorre 10/25/20 07:48 Discharge Plan Disposition Condition: Stable Discharge Details Reason For Visit: Left YAMILET Admit Date/Time: 10/25/20 16:19 Admit Provider: Alberto Brown Attending Provider: Alberto Brown Primary Care Provider: Donald Lazaro Home Meds and New Rx's Prescriptions: New celecoxib [Celebrex] 200 mg capsule 200 mg PO BID Qty: 60 RF: 0 aspirin 81 mg tablet,delayed release (DR/EC) 81 mg PO BID Qty: 60 RF: 0 acetaminophen [Tylenol Extra Strength] 500 mg tablet 500 mg PO Q6H PRNQty: 90 RF: 0 pantoprazole [Protonix] 40 mg tablet,delayed release (DR/EC) 40 mg PO DAILY Qty: 30 RF: 0 oxycodone 5 mg tablet 5 mg PO Q4H PRNQty: 18 RF: 0 Continued amlodipine 2.5 mg tablet 2.5 mg PO HS RF: 0 hydrochlorothiazide 25 mg tablet 25 mg PO HS RF: 0 finasteride 5 mg tablet 5 mg PO HS RF: 0 I-Caps 1 EACH capsule 1 ea PO DAILY RF: 0 losartan 25 mg tablet 25 mg PO HS RF: 0 doxazosin 4 MG tablet 4 mg PO HS RF: 0 Fiber Laxative (methylcellulo) 500 MG tablet 500 mg PO DAILY PRNRF: 0 Discontinued celecoxib 200 mg capsule 200 mg PO DAILY Qty: 60 RF: 0 Discharge Instructions Additional Instructions: Total Hip Discharge Instructions Activity: The most important activity is to walk. You should try to take short walks a few times a day. You have no restrictions on movement or positioning, but do not try to force what you do. You will find some stiffness and weakness with hip flexion (lifting your knee). Do not try to strengthen this too early, continue to practice walking and stairs and this will come. - Outpatient physical therapy can be helpful to help return you to a normal gait and improve your flexibility and strength. This can start around 2 weeks. For some patients, it?s not necessary. Usually this is determined at the time of discharge or at the first post-operative visit. - You should wear the CHIARA hose on both legs for 2 weeks. Dressing: Keep the surgical dressing in place for at least one week. After the first week it may be removed and replace with light gauze and tape or nothing. It may get wet after 3 days but avoid soaking the dressing. If it gets wet, just lightly pat dry. It is important to always keep some gauze between skin folds, especially when you are sitting. Spend some time with the wound exposed when you are lying flat as the incision does wrinkle onto itself. Medications: - You should take Tylenol and an anti-inflammatory Celebrex as your primary pain control medications. If the Celebrex is too expensive or not covered, please call the office for another alternative (Advil/Ibuprofen or Naproxen/Aleve). Take the Celebrex just as needed to avoid stomach issues and take the Pantoprazole to minimize stomach issues. - You have been prescribed a stronger pain medication Oxycodone for breakthrough pain, take as needed as prescribed. - You have also been prescribed a stomach acid reduction agent Pantoprozole to help reduce stomach acid and reflux. - You will be taking Aspirin 81mg twice a day for DVT prevention unless instructed otherwise. - If you have constipation you should take Colace or Miralax (both [id number]). It takes most people 3-4 days to have a bowel movement. Follow-up: 2 weeks If you have any acute concerns or questions, please do not hesitate to contact the office at [phone]. You may contact Dr. Brown with any questions after hours through the hospital at [phone] or on his cell phone at [phone]. Referrals: Alberto Brown MD [ [facility] STAFF PHYSICIAN] - Equipment/Supplies: Walker Activity:: Activity as Tolerated Remove Dressings/Wound Care:: Do Not Remove Shower/Bathe:: 72 hours Diet:: As Tolerated DS: Diagnosis Discharge Diagnosis (1) Degenerative joint disease of left hip: Status: Acute Documented by User: Alberto Brown MD 10/26/20 10:43 Discharge Plan Disposition Condition: Stable Discharge Details Reason For Visit: Left YAMILET Admit Date/Time: 10/25/20 16:19 Admit Provider: Alberto Brown Attending Provider: Alberto Brown Primary Care Provider: Donald Lazaro Home Meds and New Rx's Prescriptions: New celecoxib [Celebrex] 200 mg capsule 200 mg PO BID Qty: 60 RF: 0 aspirin 81 mg tablet,delayed release (DR/EC) 81 mg PO BID Qty: 60 RF: 0 acetaminophen [Tylenol Extra Strength] 500 mg tablet 500 mg PO Q6H PRNQty: 90 RF: 0 pantoprazole [Protonix] 40 mg tablet,delayed release (DR/EC) 40 mg PO DAILY Qty: 30 RF: 0 oxycodone 5 mg tablet 5 mg PO Q4H PRNQty: 18 RF: 0 Continued amlodipine 2.5 mg tablet 2.5 mg PO HS RF: 0 hydrochlorothiazide 25 mg tablet 25 mg PO HS RF: 0 finasteride 5 mg tablet 5 mg PO HS RF: 0 I-Caps 1 EACH capsule 1 ea PO DAILY RF: 0 losartan 25 mg tablet 25 mg PO HS RF: 0 doxazosin 4 MG tablet 4 mg PO HS RF: 0 Fiber Laxative (methylcellulo) 500 MG tablet 500 mg PO DAILY PRNRF: 0 Discontinued celecoxib 200 mg capsule 200 mg PO DAILY Qty: 60 RF: 0 Discharge Instructions Additional Instructions: Total Hip Discharge Instructions Activity: The most important activity is to walk. You should try to take short walks a few times a day. You have no restrictions on movement or positioning, but do not try to force what you do. You will find some stiffness and weakness with hip flexion (lifting your knee). Do not try to strengthen this too early, continue to practice walking and stairs and this will come. - Outpatient physical therapy can be helpful to help return you to a normal gait and improve your flexibility and strength. This can start around 2 weeks. For some patients, it?s not necessary. Usually this is determined at the time of discharge or at the first post-operative visit. - You should wear the CHIARA hose on both legs for 2 weeks. Dressing: Keep the surgical dressing in place for at least one week. After the first week it may be removed and replace with light gauze and tape or nothing. It may get wet after 3 days but avoid soaking the dressing. If it gets wet, just lightly pat dry. It is important to always keep some gauze between skin folds, especially when you are sitting. Spend some time with the wound exposed when you are lying flat as the incision does wrinkle onto itself. Medications: - You should take Tylenol and an anti-inflammatory Celebrex as your primary pain control medications. If the Celebrex is too expensive or not covered, please call the office for another alternative (Advil/Ibuprofen or Naproxen/Aleve). Take the Celebrex just as needed to avoid stomach issues and take the Pantoprazole to minimize stomach issues. - You have been prescribed a stronger pain medication Oxycodone for breakthrough pain, take as needed as prescribed. - You have also been prescribed a stomach acid reduction agent Pantoprozole to help reduce stomach acid and reflux. - You will be taking Aspirin 81mg twice a day for DVT prevention unless instructed otherwise. - If you have constipation you should take Colace or Miralax (both [id number]). It takes most people 3-4 days to have a bowel movement. Follow-up: 2 weeks If you have any acute concerns or questions, please do not hesitate to contact the office at [phone]. You may contact Dr. Brown with any questions after hours through the hospital at [phone] or on his cell phone at [phone]. Referrals: Alberto Brown MD [ [facility] STAFF PHYSICIAN] - Equipment/Supplies: Walker Activity:: Activity as Tolerated Remove Dressings/Wound Care:: Do Not Remove Shower/Bathe:: 72 hours Diet:: As Tolerated
--- NOTE | 2020-10-30 08:32 | INDS_ITS ---
Date of service: 10/30/20 Time of Service: 08:32 PT Notes Visit Reasons: Left [facility] Inpatient Initial Evaluation Date: Dates of Service: 10/25/2020 through 10/26/2020 This is a clinical summary of care provided for the duration of dates listed above. No charge was made in the completion of this documentation. Referring Doctor: SHAW Delatorre and PT Orders: PT CONSULT: S/P Ortho Surgery Precautions: WBAT on L LE with L LE with AD. Patient Profile/Admitting Diagnosis: Parviz is an 80-year-old male with degenerative joint disease of the left hip and is status post left total knee arthroplasty on postoperative day 0. PMHX: Medical History Actinic keratosis Calculus of proximal right ureter Degenerative joint disease of left hip Essential hypertension Low O2 saturation ADRY on CPAP Right kidney stone Spinal stenosis Tendonitis of left rotator cuff Subacromial injection: 05/24/2019 Uric acid stone in urine Surgical History (Updated 10/19/20 @ 13:14 by Sary Jiménez) Cholecystectomy History of right hip replacement Left inguinal hernia Social History/Home Situation: Lives with in a private home with 4-steps to enter. Bedroom is on the second floor of the house but he has a room ready on the first floor of the house. Equipment Owned/DME: FWW Subjective: NT. See most recent GROUP EXERCISE INSTRUCTOR notes. Objective: General Observation: NT. See most recent GROUP EXERCISE INSTRUCTOR notes. Mental Status: NT. See most recent GROUP EXERCISE INSTRUCTOR notes. Pain: NT. See most recent GROUP EXERCISE INSTRUCTOR notes. ROM: Right Upper Extremity: Shoulder Flexion WFL. Shoulder abduction WFL. Elbow flexion WFL. Wrist flexion WFL. Functional opening and closing of hand WFL. Left Upper Extremity: Shoulder Flexion WFL. Shoulder abduction WFL. Elbow flexion WFL. Wrist flexion WFL. Functional opening and closing of hand WFL. Right Lower Extremity: Hip flexion WFL. Hip abduction WFL. Knee flexion WFL. Ankle dorsiflexion WFL. Ankle plantarflexion WFL. Left Lower Extremity: Hip flexion WFL. Hip abduction WFL. Knee flexion WFL. Ankle dorsiflexion WFL. Ankle plantarflexion WFL. Strength: Right Upper Extremity: Shoulder flexors 5/5. Shoulder abductors 5/5. Elbow flexors 5/5. Elbow extensors 5/5. Technical Service Specialist strong. Left Upper Extremity: Shoulder flexors 5/5. Shoulder abductors 5/5. Elbow flexors 5/5. Elbow extensors 5/5. Technical Service Specialist strong. Right Lower Extremity: Hip flexors 5/5. Hip abductors 5/5. Knee flexors 5/5. Knee extensors 5/5. Ankle dorsiflexors 5/5. Ankle plantarflexors 5/5. Left Lower Extremity: Hip flexors 4/5. Hip abductors 4/5. Knee flexors 4/5. Knee extensors 4/5. Ankle dorsiflexors 5/5. Ankle plantarflexors 5/5. Sensation: Intact as to pain and light pressure andin bilateral lower extremities Bed Mobility/Transfers: Supine to sit independent Sit to stand independent Stand to sit independent Bed to chair independent Gait: Guided patient through level surface ambulation of up to 300 feet using the FWW with supervision katherin assist. Mild antalgia on L. Decreased steven. Denies dizziness. Oxygen saturation at 94% on RA. Stairs: Up and down six 4-inch and four 6-inch steps with bilateral rails with supervision. Balance: Static Sitting: Normal Dynamic Sitting: Normal Static Standing: Fair Dynamic Standing: Fair Assessment: Patient continues to present with clinical signs and symptoms consistent with current/admitting diagnoses that have resulted to mobility limitations, gait instability, generalized weakness, and impairment of motor control as demonstrated by the following impairment level findings: 1. Decreased strength to left hip major muscle groups 2. Impaired standing balance Impairments are contributing to the following functional limitations: 1. Inability to safely ambulate without assistive device 2. Increase completion time for mobility ADL performance Goals X1 week 1. Supine-Sit independent MET 2. Sit-Supine independent MET 3. Sit-Stand independent MET 4. Stand-Sit independent with FWW MET 5. Bed-Chair independent with FWW MET 6. Chair-Bed independent with FWW MET 7. Independent gait on level surface with use of FWW for at least 300 feet without report of pain nor dyspnea NOT MET 8. Independent stair negotiation while holding onto 1 rail for at least 4 steps without report of pain nor dyspnea NOT MET 9. Independent with home exercise program NOT MET 10. Good static and dynamic standing balance/tolerance NOT MET DISCHARGE RECOMMENDATIONS: Home when cleared by orthopedic surgeon. OP PT services to facilitate independent community ambulation without an AD. TREATMENT CODE/TIME: FL Thank you for the opportunity to participate in the care of this patient. Katie Kebede PT, DPT, CLT [facility] [place], [place]
== END 2020-10-26 11:27 | disposition home or self-care (01) ==
LOC: MS 10-26 08:00 → SUR 10-26 08:01 → MS 10-26 10:58
PROVIDERS: Admitting Provider Student in an Organized Health Care Education/Training Program; PCP Family Medicine; Visit Provider Student in an Organized Health Care Education/Training Program
PROC: (CPT 27130; principal; 2020-10-25 10:30)
DX: M16.12 Unilateral primary osteoarthritis, left hip (principal); I10 Essential (primary) hypertension; G47.33 Obstructive sleep apnea (adult) (pediatric); M48.00 Spinal stenosis, site unspecified; N40.0 Benign prostatic hyperplasia without lower urinary tract symptoms; R00.0 Tachycardia, unspecified; M54.5 Low back pain; N20.0 Calculus of kidney
CPT/HCPCS: 27130; 20985; 97162; 97530; 73501; G0378; J0690; J1100; J1885; J2370; J2405; J2704

== ENCOUNTER 2020-11-09 11:02 | Outpatient (CLI) | payer MEDICARE, SELFPAY ==
--- NOTE | 2020-11-09 09:30 | DI.RAD_ITS ---
Exam(s) XR HIP LT COMPLETE AP PELVIS EXAM: XR HIP LT COMPLETE AP PELVIS CLINICAL HISTORY: post operative. TECHNIQUE: 2D digital imaging was performed. COMPARISON: CR XR PELVIS AP from 10/19/2020 FINDINGS: Satisfactory position alignment of the components of the recently placed left hip prosthesis. No fra cture or loosening evident. Prosthesis in the opposite-right hip is also again noted. IMPRESSION: DATA REPOSITORY: RADIATION DOSE DELIVERED:
== END 2020-11-09 11:03 | disposition home or self-care (01) ==
LOC: DIORS 11:03
PROVIDERS: PCP Family Medicine; Referring Provider Family Medicine; Visit Provider Physician Assistant Surgical
DX: M16.12 Unilateral primary osteoarthritis, left hip (principal); Z47.1 Aftercare following joint replacement surgery; Z96.642 Presence of left artificial hip joint
CPT/HCPCS: 73502

== ENCOUNTER → 2020-12-07 08:53 | Outpatient (BNVA) | payer MEDICARE, SELFPAY | PROVIDERS: PCP Family Medicine; Referring Provider Family Medicine; Visit Provider Student in an Organized Health Care Education/Training Program | DX: Z47.1 Aftercare following joint replacement surgery (principal); Z96.642 Presence of left artificial hip joint; M16.12 Unilateral primary osteoarthritis, left hip ==

== ENCOUNTER → 2021-01-18 09:54 | Outpatient (BNVA) | payer MEDICARE, SELFPAY | PROVIDERS: PCP Family Medicine; Referring Provider Family Medicine; Visit Provider Student in an Organized Health Care Education/Training Program | DX: Z47.1 Aftercare following joint replacement surgery (principal); Z96.642 Presence of left artificial hip joint ==

== ENCOUNTER 2021-02-26 01:50 | Outpatient (CLI) | payer MEDICARE, SELFPAY ==
--- NOTE | 2021-02-26 | DI.MRI_ITS ---
Exam(s) MR LUMBAR SPINE WO EXAM: MR LUMBAR SPINE WO CLINICAL HISTORY: LUMBAR STENOSIS WITH NEUROGENIC CLAUDICATION,M48.062. TECHNIQUE: Multiplanar multisequence MRI of the Lumbar spine was performed. COMPARISON: MR MR LUMBAR SPINE WO from 09/08/2019 MR MR LUMBAR SPINE WO from 09/08/2019 FINDINGS: Conus medullaris is at normal level. There is no evidence of conus mass nor subjacent clumping of in trathecal nerve roots to suggest arachnoiditis. The distal thecal sac appears unremarkable.There is no evidence of Tarlov intrasacral cysts nor other significant findings within the sacral canal Bones:There are no fractures nor ominous osseous lesions in the lumbar vertebral bodies and visualize d sacrum. 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 T12-L1: Unremarkable L1-2: Some disc space narrowing and prominent lateral right osteophytes again noted. The appearance of this level is unchanged from the prior MRI scan of August 2019. There is some posterior bony ridging on the right side again noted. No prominent disc herniation. No central canal stenosis. Mild bila teral foraminal stenosis again noted. mild facet arthropathy. L2-3: This level again exhibits chronic advanced disc space narrowing and anterior osteophytes. Also mild retrolisthesis L2 upon L3 again evident. There is a posterolateral left disc herniation again noted at this level, unchanged in size and configuration, extending posteriorly 6 millimeters and amarilis roximately 2 cm wide. This extends posteriorly from the disc space and caudally for distance of 7 mi llimeters, unchanged. There is impression upon the left side of the thecal sac again noted at this l evel by the disc protrusion.There is ipsilateral foraminal stenosis on the left side at this level al though this appears to be more related to the advanced disc height loss, short AP dimensions of the p edicles,and some facet hypertrophy. Findings at this level are unchanged from the prior study of August 2019. L3-4: This level exhibits moderate disc height loss. Similar to previous study. There is annular bu lging at this level which is relatively symmetrical. There is no dominant focal disc herniation. Th ere is moderate central spinal canal stenosis at this level which is unchanged and related to the jatin rt AP dimensions the pedicles, broad annular bulging and significant degenerative change in both face t joints.There is minimal foraminal stenosis at this level. L4-5: Moderate disc space narrowing on the left side of the disc space and more more severe disc spac e narrowing on the right side of this disc space, similar to prior the previous study. There is broa d annular bulging. This extends into the exiting neural foramina bilaterally. There is moderate newton tral spinal canal stenosis due to short AP dimensions of the pedicles at this level, broad annular bu lging, degenerative changes in both facet joints and bilateral ligamentum flavum hypertrophy. There is some narrowing of the exiting right neural foramen at this level; less so on the left side where t here is less vertical height loss in the disc. L5-S1: Significant disc height loss throughout this disc space. There is broad annular bulging with superimposed small central disc protrusion. This, however, does not indent the anterior aspect of th e thecal sac and the central canal dimensions are within normal limits at this level. There is some narrowing of the exiting neural foramina bilaterally at this level which is a mostly due to the heigh t loss of the disc and degenerative changes in the facet joints. There is no significant ligamentum flavum hypertrophy at this level. Soft tissues: paraspinal soft tissues appear unremarkable. IMPRESSION: 1. Multilevel findings as described above but with minimal any significant change when compared to e prior MRI scan performed 09/08/2019. 2. Multilevel spinal canal stenosis again noted, most evident at the L3-4 and L4-5 levels. 3. Posterolateral left disc herniation at L2-3 level as described above, this similar in size to the previous study, extending posteriorly 6 millimeters and approximately 2 millimeters wide. DATA REPOSITORY:
== END 2021-02-26 02:10 ==
PROVIDERS: PCP Family Medicine; Visit Provider Orthopaedic Surgery Orthopaedic Surgery of the Spine
DX: M48.062 Spinal stenosis, lumbar region with neurogenic claudication (principal); M51.26 Other intervertebral disc displacement, lumbar region
CPT/HCPCS: 72148

== ENCOUNTER → 2021-03-01 10:19 | Outpatient (BNVA) | payer MEDICARE, SELFPAY | PROVIDERS: PCP Family Medicine; Visit Provider Student in an Organized Health Care Education/Training Program | DX: Z47.1 Aftercare following joint replacement surgery (principal); Z96.642 Presence of left artificial hip joint; M16.12 Unilateral primary osteoarthritis, left hip; K43.9 Ventral hernia without obstruction or gangrene; M25.551 Pain in right hip; G89.29 Other chronic pain; Z96.641 Presence of right artificial hip joint; M48.062 Spinal stenosis, lumbar region with neurogenic claudication | CPT/HCPCS: 99213 ==

== ENCOUNTER 2021-03-14 00:05 | Outpatient (CLI) | payer MEDICARE, SELFPAY ==
--- NOTE | 2021-03-14 07:15 | DI.NM_ITS ---
Exam(s) NM BONE SCAN 3 PHASE EXAM: NM BONE SCAN 3 PHASE CLINICAL HISTORY: pain, ? loosening,H/O LT TOTAL HIP ARTHOPLASTY,Z96.642. TECHNIQUE: Injected Dose: 25 mCi Tc-99m MDP COMPARISON: CR XR HIP LT COMPLETE AP PELVIS from 11/09/2020 FINDINGS: Perfusion: No definite increased radiotracer uptake. Blood Pool: No definite increased radiotracer uptake. Delayed: There are areas of increased radiotracer uptake seen at the acetabular component of the left hip prosthesis. There also appears to be some increased activity at the lateral aspect of the femor al component near the greater trochanter. Increased uptake can be seen in recently placed prostheses . There is a normal appearance of the right hip prosthesis. IMPRESSION: Increased radiotracer uptake about the acetabular and proximal femoral components of the left hip pro sthesis. There can be increased activity about recently implanted prostheses. Loosening cannot be e xcluded. DATA REPOSITORY:
== END 2021-03-14 00:25 ==
PROVIDERS: PCP Family Medicine; Visit Provider Student in an Organized Health Care Education/Training Program
DX: Z96.642 Presence of left artificial hip joint (principal)
CPT/HCPCS: 78315

== ENCOUNTER → 2021-03-20 11:23 | Outpatient (BNVA) | payer MEDICARE, SELFPAY | PROVIDERS: PCP Family Medicine; Referring Provider Student in an Organized Health Care Education/Training Program; Visit Provider Surgery | DX: M62.08 Separation of muscle (nontraumatic), other site (principal); K59.00 Constipation, unspecified | CPT/HCPCS: 99203; 99213 ==

== ENCOUNTER 2021-05-10 08:38 | Outpatient (CLI) | payer MEDICARE, SELFPAY ==
--- NOTE | 2021-05-10 06:00 | DI.RAD_ITS ---
Exam(s) XR PAIN CLINIC LUMBAR SP 2V EXAM: XR PAIN CLINIC LUMBAR SP 2V CLINICAL HISTORY: DX: Lumbar Radiculopathy TECHNIQUE: 2D and realtime digital imaging was performed. CONTRAST MATERIAL: Refer to procedure report. COMPARISON: No exams were available for comparison FINDINGS: Fluoroscopy was provided for Dr. Rubin during the performance of a lumbar transforaminal epidural servando roid injection. Please refer to the procedure report for complete details. Ka,r=41.23 mGy IMPRESSION:
[2021-05-10 08:46] VITALS: BP 123/75; PULSE 86; RESP 16; TEMP 36.3; O2SAT 95
--- NOTE | 2021-05-10 09:24 | PDOC.PAIN_ITS ---
Pain Clinic Procedure Note Procedure Note Procedure Note: LUMBAR / SACRAL TRANSFORAMINAL INJECTION - Right L4 Parviz Worrell has been referred to the [facility] for a transforaminal nerve root block and steroid injection. COMMENTS: He has two LESIs (10/26/19 and 12/14/19). It was thought that he might have better relief with a transforminal approach. DX: Lumbosacral radiculopathy Pain VAS preprocedure was 7/10. Patient was interviewed and the medical record reviewed. There were no medical, pharmacologic, radiographic or other structural contraindications to attempting fluoroscopically guided transforaminal nerve root block and epidural steroid injection. Risks and expected side effects as well as potential benefit of the procedure were reviewed and voiced concerns addressed. The printed consent form was signed and witnessed. Standard time-out procedure was performed. Patient was placed in the prone position on the fluoroscopy table and automated blood pressure cuff and pulse oximeter applied. Fluoroscopy was utilized to identify the right L4 neural foramen between L4 and L5. A skin clarence was made for the needle insertion site. A Chlorhexadine prep was carried out, and sterile drapes were applied. Local anesthesia was achieved in the skin and subcutaneous tissues. A 22 gauge curved tip spinal needle was then inserted, advanced with fluoroscopic guidance into the neural foramen, confirmed on the lateral view. After negative aspiration, 2 ml of Omnipaque 240 was injected confirming position in A/P and lateral views. This showed a good spread of dye transforaminally into the epidural space. There was no vascular update with contrast injection under continuous fluoroscopy and digital substraction. 15 mg of Dexamethasone was injected, followed by 0.5 ml of 1% Xylocaine flush for the nerve root block, as well. There was no unusual discomfort expressed.The needle was withdrawn. The patient tolerated the procedure well. A Band-Aid was applied. Vital signs were stable throughout the procedure and were as recorded in nursing records. If given, dosages of intravenous drugs for anxiolysis and analgesia were documented in nursing records. Follow up plans and appointments were discussed. Post procedure instruction was given as documented in nursing records and patient was discharged in the care of an identified compressed air pile driver operator. COMMENTS: There was significant bone-spurring in the supra-neural window and I was unable to approach the correct position within the right L4 neuroforamen. For this reason I switched to the infra-neural approach and was able to obtain correct positioning within the right L4 neuroforamen. Post-procedure VAS pain level was 0/10. Lionel Rubin DO, MPH [facility] CC: Donald Lazaro
[2021-05-10] MEDS: Omnipaque 240 MG/ML 50 ML BTL IJ (09:29)
[2021-05-10 09:30] VITALS: BP 135/58; PULSE 70; RESP 18; O2SAT 92
[2021-05-10] MEDS: Dexamethasone Sod. Phos./Pres-Free 10 MG/ML VIAL IJ (09:30)
[2021-05-10] MEDS: Lidocaine 1% Pres-Free 5 ML VIAL IJ (09:30)
== END 2021-05-10 08:39 | disposition home or self-care (01) ==
LOC: PC 08:39
PROVIDERS: PCP Family Medicine; Visit Provider Preventive Medicine Occupational Medicine
DX: M54.17 Radiculopathy, lumbosacral region (principal)
CPT/HCPCS: 64483; 72100; Q9967

== ENCOUNTER 2021-08-07 20:17 | Outpatient (REF) | payer MEDICARE, SELFPAY ==
[2021-08-07 19:20] LABS: HCT 46.8 % (40.0-50.0); HGB 15.5 g/dL (13.5-17.5); MCH 30.2 pg (27.0-33.0); MCHC 33.1 % (32.0-36.0); MCV 91.1 fL (80-95); MPV 10.3 fL (8.0-11.0); Platelet Count 181 10^3/uL (130-400); RBC 5.14 10^6/uL (4.36-5.78); RDW 13.6 % (11.8-14.1); RDW-SD 46.1 fL; WBC 6.45 10^3/uL (4.4-10.8)
[2021-08-07 19:28] LABS: Anion Gap 10.1 mmol/L (3-11); BUN 26 mg/dL (7-18); CO2 26.9 mmol/L (21.0-32.0); CREATININE 1.3 mg/dL (0.70-1.30); Chloride 104 mmol/L (98-107); Estimated GFR 52.98 (mL/min/1.73m2); Glucose 143 mg/dL (74-106); Magnesium 1.9 mg/dL (1.8-2.4); Potassium 3.6 mmol/L (3.5-5.1); Sodium 141 mmol/L (136-145)
== END 2021-08-07 20:18 | disposition home or self-care (01) ==
LOC: NCHCN 20:17
PROVIDERS: PCP Family Medicine; Visit Provider Family Medicine
DX: N18.30 Chronic kidney disease, stage 3 unspecified (principal); M48.061 Spinal stenosis, lumbar region without neurogenic claudication
CPT/HCPCS: 80048; 85027; 83735

== ENCOUNTER → 2021-09-05 03:30 | Outpatient (CLI) | payer MEDICARE, SELFPAY ==
--- NOTE | 2021-09-05 11:28 | DI.US_ITS ---
APPROVED REPORT EXAM: Comprehensive 2D, Doppler, and color-flow Echocardiogram Patient Location: Out-Patient Wood Craftsman: Carley Stringer RDCS (AE) Indications: RAMOS, Paroxysmal junctional tachycardia, postoperatively Other Information Study Quality: Fair. Technically limited study due to body habitus. Conclusion Technically difficult study Normal left ventricular wall thickness and chamber size. Estimated ejection fraction is 55%. Wall m otion is normal The right ventricle is not well visualized The atria were not well visualized Aortic valve is trileaflet and sclerotic. 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 Left ventricular systolic function is normal There is normal left ventricular wall thickness. There is no ventricular septal defect visualized. LVEF is 55%. Right Ventricle Right ventricle is not well visualized. Right ventricular systolic function could not be assessed. Th e RVSP is 22.1mmHg. Atria Left atrium is not well visualized. Right atrium is not well visualized. Technically limited subcosta l view. Aortic Valve The Aortic valve is sclerotic. Aortic valve is trileaflet. There is no aortic valvular stenosis. Mild aortic regurgitation. Mitral Valve The mitral valve is normal in structure. No evidence of mitral valve stenosis. Trace mitral regurgita tion. Tricuspid Valve The tricuspid valve is normal in structure. There is no tricuspid valve stenosis. Trace tricuspid reg urgitation. Pulmonic Valve Pulmonic valve is not well visualized. There is no pulmonic valvular stenosis. There is no pulmonic v alvular regurgitation. 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 Ascending aorta is not well v isualized. IVC is normal in size and collapses >50% with inspiration. Pericardium There is no pericardial effusion. 2D Dimensions IVSD d PLAX 1.05 cm M: 0.6-1.2 LV Vol A2C d MOD 127.4 mL LVPW d PLAX 1.01 cm M: 0.6 - 1.2 LV Vol A4C d MOD 154.0 mL LVID d PLAX 5.26 cm M: 4.2 - 5.8 LA vol/ BSA A4C s A-L 23.7 mL/m2 LVDs 3.80 cm M: 2.5 - 4.0 LA Area A4C s MOD 19.68 cm2 Ao Root d 4.25 cm M: 3.1 - 3.7 LV EF A4C MOD 55.0 % Ao Asc Diam d 4.09 cm M: 2.6 - 3.4 LV EF A2C MOD 55.1 % LV EF Teichholz 52.7 % LV EF Biplane MOD 55.5 % LVEF (Euceda's) 55.45 % M: 52 - 72 SV 78.92 mL LV Volume 101.82 mL M: 62 - 150 SV Index 34.00 mL/m2 LV Volume Index 43.88 mL/m2 M: 34 - 74 LV Vol Biplane MOD 142.3 mL FS 27.25 % M-Mode TAPSE 2.29 cm (M/F) >1.7 LV Diastology MV E' lateral 0.060 (>0.1 m/s) MV E Vmax 1.06 (0.4-1.3 m/s) LV E/e LAT 17.70 (<14) MV E/E' lateral 17.73 Aortic Valve LVOT Area 3.97 cm2 AoV Area Vmax 1.90 cm2 LVOT Vmax 0.77 m/s AoV Area/ BSA (Vmax) 0.82 cm2/m2 LVOT Mean Tato. 0.48 m/s JEANNETTE Mean Tato. 1.63 cm2 LVOT Peak Grad 2.3 mmHg JEANNETTE Mean Tato. Index 0.70 cm2/m2 LVOT Mean Grad 1.1 mmHg AR DT 1427 msec LVOT VTI 0.151 m AR PHT 414 msec LVOT Diam s 2.20 cm AoV Vmax 1.60 m/s Velocity Ratio 0.48 AoV Mean Tato. 1.18 m/s AoV Peak Grad 10.2 mmHg LVOT SV 59.78 mL AoV Mean Grad 6.0 mmHg AoV VTI 0.314 m AoV Area VTI 1.91 cm2 AoV Area/ BSA (VTI) 0.82 cm/m2 Mitral Valve MV DT 145 (160-240 msec) MV PHT 42 msec MV Area PHT 5.24 cm2 Pulmonary Valve PV Vmax 0.81 (0.5-1.5 m/s) RVOT Peak Gr. 1.10 mmHg PV Peak Grad 2.6 mmHg RVOT Mean Gr. 0.60 mmHg PV Mean Grad 1.4 mmHg RVOT VTI 0.086 m PV VTI 0.146 m RVOT Vmax 0.52 m/s Tricuspid Valve TR Peak Grad 19.0 mmHg TR Vmax 2.18 m/s RA Pressure 3.00 mmHg RVSP (TR) 22.1 mmHg
== END ==
PROVIDERS: PCP Family Medicine; Visit Provider Family Medicine
DX: R06.09 Other forms of dyspnea (principal)
CPT/HCPCS: 93306

== ENCOUNTER → 2021-10-02 00:06 | Outpatient (CLI) | payer MEDICARE, SELFPAY ==
--- NOTE | 2021-10-02 09:15 | DI.NM_ITS ---
APPROVED REPORT Exam: Exercise Treadmill Patient Location: Out-Patient Room/Bed: Stress Nurse: Adia Figueroa RN Ordering Provider:TESFAYE HENDERSON, Contact Number: [phone] BMI: 31.00 Baseline Rhythm: Sinus Rhythm Comment: RBBB, LVH Indications: Dyspnea on exertion, Right Bundle Branch Block, Paroxysmal junctional tachycardia Medical History Medical History: Hypertension Cardiac Medications: Losartan, hydrochlorothiazide, amlodipine, sildenafil Allergies: Penicillin, hay Cardiac Risk Factors: Hypertension Previous Cardiac Procedures: None Pretest Chest Pain Characteristics: None Exercise History: Physically active Physical Disabilities: None Lung Sounds: Clear to auscultation Heart Sounds: Regular Stress Test Details Test: Exercise stress testing was performed using a Tom protocol. Nuclear Acquisition: Rest Tc-99m/Stress Tc-99m 1 day Rest Isotope: Tc-99m Sestamibi. Dose: 11.0 Date: 10/02/2021 Injection Time: 0930 Stress Isotope: Tc-99m Sestamibi. Dose: 36.6 Date: 10/02/2021 Injection Time: 1109 HR Resting HR Supine: 88 bpm Max Heart Rate (APMHR): 139.887130 bpm Resting HR Standin bpm Target HR (85% APMHR): 118.011175 bpm Max HR Achieved: 133 bpm % of APMHR: 95.68 Recovery HR: 91 bpm HR response to stress: Normal HR response to stress BP Resting BP Supine: 142/88 mmHg Resting BP Standin/90 mmHg Max BP: 170/94 mmHg Recovery BP: 134/88 mmHg BP response to stress: Normal blood pressure response to stress. ECG Resting ECG: Sinus Rhythm, RBBB, LVH Ectopy: None Stress ECG: Sinus Tachycardia, RBBB ST Change: No significant ST segment changes noted Arrhythmia: Rare PVC Recovery ECG: Sinus Rhythm, RBBB Recovery ST Change: No significant ST segment changes noted Recovery Arrhythmia: Rare PACs, PVC Clinical Reason for Termination: Fatigue Stress Symptoms: General Fatigue, Dyspnea Exercise duration: 5 min56 sec Highest Stage Reached: Stage 2: 2.5 mph at 12% grade. Exercise capacity: 7.05 METs Angina Score: None Goff Treadmill Score: 5.3 Rate Pressure Product: [id number] Stress ECG Conclusion 1. Resting electrocardiogram showed right bundle branch block, left anterior fascicular block, left v entricular hypertrophy with repolarization abnormalities 2. Patient exercised on the Tom protocol and completed a workload of 7.05 METS limited by fatigue a nd shortness of breath 3. Normal hemodynamic response to exercise. The patient achieved 95% of predicted heart rate for age 4. The electrocardiographic portion of the test was nondiagnostic due to resting ST-T abnormalities 5. There were no significant dysrhythmia 6. See MPI report Goff Treadmill Score is 5.3 which is Low risk. Stress Test Summary STAGE Time (mins) Speed (mph) Grade (%) HR BP SYMPTOMS METS Supine 88 142/88 Standing 92 142/90 SpO2 92% 1 3 1.7 10 112 160/88 SpO2 93% 4.6 2 6 2.5 12 133 170/94 SpO2 93% 7 1 min recovery 118 164/84 SpO2 96% 3 min recovery 97 142/90 SpO2 96% 6 min recovery 91 134/88 SpO2 96% MPI Conclusion There is apical thinning, possible small area of infarction. There is no significant myocardial isch emia EF is 43%, mild diffuse hypokinesis Radiologist Interpretation Radiologist agrees with Medical Intern's Interpretation. Radiologist Interpretation by: Vicky Valentine MD Interpretation Date/Time: 10/02/2021 16:39:08
== END ==
PROVIDERS: PCP Family Medicine; Visit Provider Family Medicine
DX: R06.09 Other forms of dyspnea (principal)
CPT/HCPCS: 78452; 93016; 93018; 93017

== ENCOUNTER 2021-10-18 09:29 | Outpatient (CLI) | payer MEDICARE, SELFPAY ==
--- NOTE | 2021-10-18 09:15 | RT.EKG_ITS ---
APPROVED REPORT Exam: Resting ECG Reason for Exam: CP Patient Location: O HR:97 bpm ECG Measurements Heart Rate 97 AXIS IA [id number] P [id number] QRSd 152 QRS -79 QT 396 T 59 QTc 503 Conclusion Sinus rhythm First-degree AV block Left anterior fascicular block, right bundle branch block
== END 2021-10-18 09:30 | disposition home or self-care (01) ==
LOC: DI.CARD 09:29
PROVIDERS: PCP Family Medicine; Visit Provider Internal Medicine Cardiovascular Disease
DX: R07.9 Chest pain, unspecified (principal); R94.31 Abnormal electrocardiogram [ECG] [EKG]; I44.4 Left anterior fascicular block; I45.10 Unspecified right bundle-branch block
CPT/HCPCS: 93010

== ENCOUNTER → 2021-10-18 10:52 | Outpatient (BNVA) | payer MEDICARE, SELFPAY | PROVIDERS: PCP Family Medicine; Referring Provider Family Medicine; Visit Provider Internal Medicine Cardiovascular Disease | DX: R06.02 Shortness of breath (principal); I10 Essential (primary) hypertension; Q25.49 Other congenital malformations of aorta; I45.3 Trifascicular block | CPT/HCPCS: 93005; 99214; 99215 ==

== ENCOUNTER 2021-10-19 02:19 | Outpatient (CLI) | payer MEDICARE, SELFPAY ==
[2021-10-19 14:39] LABS: Abs Immature Grans 0.03 10^3/uL (0.0-0.06); Absolute Basophil Count 0.05 10^3/uL (0.0-0.2); Absolute Eosinophil Count 0.12 10^3/uL (0.0-0.7); Absolute Lymphocyte Count 1.76 10^3/uL (1.2-3.4); Absolute Monocyte Count 0.51 10^3/uL (0.1-0.8); Basophils % 0.7; Eosinophils % 1.8; HCT 47.2 % (40.0-50.0); HGB 15.6 g/dL (13.5-17.5); Immature Grans % 0.4; MCHC 33.1 % (32.0-36.0); MCV 91 fL (80-95); MPV 9.8 fL (8.0-11.0); Monocytes % 7.5; Neutrophils % 63.6; Platelet Count 179 10^3/uL (130-400); RDW 13.6 % (11.8-14.1); RDW-SD 45.7 fL; WBC 6.77 10^3/uL (4.4-10.8)
[2021-10-19 14:52] LABS: INR 1.1 (0.9-1.1); PTT Activated 25.4 sec (21.0-27.5); Prothrombin Time 10.9 sec (9.3-11.0)
[2021-10-19 15:35] LABS: Anion Gap 11.8 mmol/L (3-11); BUN 24 mg/dL (7-18); CO2 29.2 mmol/L (21.0-32.0); CREATININE 1.4 mg/dL (0.70-1.30); Chloride 102 mmol/L (98-107); Estimated GFR 48.64 (mL/min/1.73m2); Glucose 166 mg/dL (74-106); Potassium 3.3 mmol/L (3.5-5.1); Sodium 143 mmol/L (136-145)
== END 2021-10-19 02:20 | disposition home or self-care (01) ==
LOC: LBO 02:19
PROVIDERS: PCP Family Medicine; Visit Provider Internal Medicine Cardiovascular Disease
DX: R07.9 Chest pain, unspecified (principal); I10 Essential (primary) hypertension; R06.09 Other forms of dyspnea; R06.02 Shortness of breath; R79.81 Abnormal blood-gas level; M54.59 Other low back pain
CPT/HCPCS: 36415; 80051; 82947; 84520; 82565; 85025; 85610; 85730

== ENCOUNTER 2021-12-20 19:14 | Outpatient (REF) | payer MEDICARE, SELFPAY ==
[2021-12-20 21:00] LABS: Bilirubin Negative (Negative); Blood Large (Negative); Clarity Cloudy (Clear); Glucose Negative (Negative); Ketones Negative (Negative); Leukocyte Esterase Negative (Negative); Nitrite Negative (Negative); Specific Gravity >= 1.030 (1.005-1.025); Urobilinogen 0.2 EU/dL (Up TO 0.2); pH 5.5 (5-8)
[2021-12-20 21:08] LABS: Bacteria Negative HPF (Negative); C & S Indicated? C&S Done As Ordered; Crystals Few Amorphous HPF (Negative); Epithelial Cells Many HPF (Negative); Mucus Negative (Negative); RBC >50 HPF (0-2); WBC 0-2 HPF (0-5)
== END 2021-12-20 19:15 | disposition home or self-care (01) ==
LOC: LBN 19:14
PROVIDERS: PCP Family Medicine; Visit Provider Nurse Practitioner Family
DX: R31.9 Hematuria, unspecified (principal)
CPT/HCPCS: 81003; 81015; 87086

== ENCOUNTER → 2022-01-04 09:36 | Outpatient (BNVA) | payer MEDICARE, SELFPAY | PROVIDERS: PCP Family Medicine; Referring Provider Family Medicine; Visit Provider Internal Medicine Cardiovascular Disease | DX: Q25.49 Other congenital malformations of aorta (principal); I10 Essential (primary) hypertension; R79.81 Abnormal blood-gas level; G47.33 Obstructive sleep apnea (adult) (pediatric); Z99.89 Dependence on other enabling machines and devices | CPT/HCPCS: 99214; 99213 ==

== ENCOUNTER 2022-02-03 11:01 | Emergency (ER) | payer MEDICARE, SELFPAY ==
[2022-02-03 11:05] VITALS: BP 148/89; PULSE 90; RESP 18; TEMP 36.2; O2SAT 93
--- NOTE | 2022-02-03 11:15 | DI.CT_ITS ---
Exam(s) CT RENAL COLIC WO EXAM: CT RENAL COLIC WO CLINICAL HISTORY: R flank pain, hx of stones. TECHNIQUE: Imaging Protocol: Axial computed tomography images with coronal and sagittal reformatted images were created and reviewed CONTRAST MATERIAL: Intravenous: none Oral: None COMPARISON: CT,NM,TMT NM MPI REST STRESS GRP from 10/02/2021 FINDINGS: VISUALIZED LUNG BASES: No nodules nor pleural effusions evident. ABDOMEN: There is no ascites. LIVER: There are no obvious focal hepatic lesions evident of this noninfused study. GALLBLADDER/BILIARY: Gallbladder surgically absent. CBD is not dilated. PANCREAS: No evidence of pancreatic mass nor dilatation of the pancreatic duct. There is mild streak ing around the pancreatic head. No mass. SPLEEN: Spleen is not enlarged. No obvious intrasplenic lesions. ADRENALS: There are no significant adrenal masses. KIDNEYS:There is mild-moderate right-sided hydronephrosis due to a 3 millimeter calculus at the right ureterovesical junction. Larger calculi remain in the right kidney including a staghorn-type calcul us in the right renal pelvis. There are no calculi in the opposite-left kidney. There is a benign c yst in the right kidney which measures 3 x 3 cm.. ABDOMINAL AORTA: Abdominal aorta is not enlarged. LYMPH NODES: There is no retroperitoneal nor paraaortic adenopathy. ABDOMINAL WALL: There is a prominent fat only containing right inguinal hernia. GI: Benign lipoma is noted in the distal duodenal wall which measures 1.7 by 1.2 cm. No bowel obstruction. PELVIS: LYMPH NODES: There is no intrapelvic nor inguinal adenopathy. GI: No evidence of appendicitis.No evidence of sigmoid diverticulitis. URINARY BLADDER: Bladder cannot be assessed because of beam hardening artifact from bilateral hip pro stheses. REPRODUCTIVE: Moderately enlarged prostate which is mostly obscured by beam hardening artifact from b ilateral hip prostheses. OSSEOUS: Bilateral hip prostheses. No fractures. No significant osseous lesions. IMPRESSION: 1. The main acute finding here is a 3 millimeter calculus in the lower right ureter UV junction regio n with hydronephrosis and hydroureter above this level. There are additional nonobstructing calculi in the right kidney, including what appears to be developing staghorn right kidney calculus. 2. Large fat only containing right inguinal hernia. 3. Other findings as above. RADIATION DOSE DELIVERED: 1,553.44mGy.cm Total DLP DATA REPOSITORY: All CT scans at this facility are submitted to the National Radiology Data Registry (NRDR) Dose Index Registry (DIR) with the [employer] ([employer]). RADIATION OPTIMIZATION: All CT scans at this facility use at least one of these dose optimization te chniques: automated exposure control; mA and/or kV adjustment per patient size (includes targeted exa ms where dose is matched to clinical indication); or iterative reconstruction.
--- NOTE | 2022-02-03 11:20 | ED.GENADUL_ITS ---
Discharge Plan Disposition Patient Disposition: HOME Condition: Improving Discharge Details Clinical Impression: Right kidney stone Primary Care Provider: Donald Lazaro ED Provider: Vitaliy Max Home Meds and New Rx's Prescriptions: New oxycodone 5 mg capsule 5 mg PO TID PRN (Reason: pain) Qty: 7 0RF Continued hydrochlorothiazide 25 mg tablet 25 mg PO HS finasteride 5 mg tablet 5 mg PO HS atorvastatin 40 mg tablet 40 mg PO DAILY aspirin [Adult Aspirin Regimen] 81 mg tablet,delayed release (DR/EC) 81 mg PO DAILY losartan 25 mg tablet 25 mg PO HS sildenafil 50 mg tablet 50 mg PO DAILY PRN Rx Instructions: administer 30 minutes to 4 hours before activity tamsulosin 0.4 mg capsule 0.4 mg PO DAILY Fiber Laxative (methylcellulo) 500 MG tablet 500 mg PO DAILY PRN acetaminophen [Tylenol Extra Strength] 500 mg tablet 500 mg PO Q6H PRNQty: 90 0RF Discharge Instructions Instructions: Kidney Stones (ED) Additional Instructions: Nothing to eat or drink after midnight tonight. Dr. Jama's office will reach out to you tomorrow Continue your routine medications. May use the provided prescription with oxycodone as needed for severe or breakthrough pain. Return to the ER if you develop a fever, increasing pain, or any other acute concern Medical Decision Making 81-year-old male with a history of kidney stones, presents with 2 to 3 days of right flank pain that radiates to his groin, is intermittent and crampy. No fever, chills, vomiting. He states that he has otherwise been well with finished antibiotics for urinary tract infection 2 weeks ago. He arrives afebrile, interactive, vital signs are reassuring. He has right flank and right suprapubic tenderness on exam. Differential diagnosis includes UTI, renal colic. Patient had IV access established, given analgesia and fluids, referred for laboratory testing, urinalysis and CT imaging. There is a 3 mm right UVJ calculus. Additional nonobstructing calculi noted. Patient's pain improved with medications and graded as 0. His laboratories were reassuring. He has freestanding relationship with urology at this institution, the case was discussed with Dr. Jama who will follow up with patient tomorrow. I will prescribe him analgesic as needed. He is stable and appropriate for discharge to home and will be n.p.o. after midnight. HPI General Mode of arrival: ambulatory . Date/Time Provider Initiated Documentation: 02/03/22 11:03 . Limitations to Documentation: no limitations . Information obtained by: patient . History of Present Illness 81 year old M presents to the emergency department with the chief complaint of Right flank pain 2 to 3 days, described as moderate and similar to prior episodes, Quality is described as other (Intermittent and), and is localized to the back, abdomen and right. Patient abdomen. Patient started experiencing this day(s) and it has been intermittent. No relieving factors improve symptom(s), No exacerbating factors reported . Patient notes denies fever/chills and nausea/vomiting. Patient did receive the following treatments prior to arrival, none Related Data Home Medications Medication Instructions Recorded Confirmed methylcellulose (laxative) 500 mg 500 mg PO DAILY PRN 05/01/16 01/04/22 tablet (Fiber Laxative (methylcellulose)) losartan 25 mg tablet 25 mg PO HS 01/25/20 01/04/22 finasteride 5 mg tablet 5 mg PO HS 10/05/20 01/04/22 hydrochlorothiazide 25 mg tablet 25 mg PO HS 10/05/20 01/04/22 acetaminophen 500 mg tablet 500 mg PO Q6H PRN #90 tabs 10/25/20 01/04/22 (Tylenol Extra Strength) sildenafil 50 mg tablet 50 mg PO DAILY PRN 03/02/21 01/04/22 tamsulosin 0.4 mg capsule 0.4 mg PO DAILY 03/02/21 01/04/22 aspirin 81 mg tablet,delayed 81 mg PO DAILY 10/18/21 01/04/22 release (Adult Aspirin Regimen) atorvastatin 40 mg tablet 40 mg PO DAILY 10/18/21 01/04/22 oxycodone 5 mg capsule 5 mg PO TID PRN pain #7 caps 02/03/22 Previous Rx's Medication Instructions Recorded acetaminophen 500 mg tablet 500 mg PO Q6H PRN #90 tabs 10/25/20 (Tylenol Extra Strength) oxycodone 5 mg capsule 5 mg PO TID PRN pain #7 caps 02/03/22 Allergies Allergy/AdvReac Type Severity Reaction Status Date / Time Penicillins Allergy Unknown sometimes, Verified 01/04/22 09:40 the shot, so long ago I can't remember hay AdvReac Mild Uncoded 01/04/22 09:40 General Stated Complaint: FlankPain MONTSERRAT: 3 Review of Systems Narrative: Otherwise well. Reports she had a UTI 2 weeks ago for which she was given antibiotics. No fever, chills, nausea or vomiting. 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 Social History Smoking/Tobacco Use Status: Never Smoking risk assessment performed?: Yes Alcohol Intake: never Drug use: Never Substance use type: does not use Household members: spouse Housing: house Number of Children: 2 number of grandchildren: 2 current occupation: Retired Current gender identity: male What type of physical activity do you participate in: walking, independent ambulation and regular exercise Do you feel safe at home: Yes Do you feel safe in your relationship?: Yes Additional Social history: unable to assess privatley Exam Narrative Exam Narrative: GEN: awake, alert, oriented 3. Pleasant, well groomed, interactive. HEAD: Normocephalic, atraumatic ENT: Mucous membranes moist, oropharynx unremarkable, External ear exam unremarkable EYES: PERRL, EOMI NECK: Full ROM, no LURDES, no menigismus CHEST/RESP: Nontender, clear to auscultation bilateral, no wheeze/rhonchi/rales CARDIOVASCULAR: RRR, no murmur, rub adelina. 2+ Rad pulse bilateral ABDOMEN: Soft, right suprapubic and right flank tenderness to palpation without rebound or guarding present, no mass. +Bowel sounds EXT: Full ROM, no edema, no rash Neuro: Grossly normal neurologic exam, conversant, interactive. Psych: Speech fluent, thoughts congruent, affect normal Course Vital Signs Vital signs: Vital Signs Temperature 36.2 C L 02/03/22 11:05 Pulse 90 02/03/22 11:05 Respiratory Rate 18 02/03/22 11:05 Blood Pressure 148/89 H 02/03/22 11:05 Pulse Oximetry 93 02/03/22 11:05 Temperature 36.2 C L 02/03/22 11:05 Temperature Source Skin 02/03/22 11:05 Pulse 90 02/03/22 11:05 Respiratory Rate 18 02/03/22 11:05 Respiratory Effort 02/03/22 11:12 Blood Pressure 148/89 H 02/03/22 11:05 Blood Pressure Position Sitting 02/03/22 11:05 Pulse Oximetry 93 02/03/22 11:05 Oxygen Delivery Method Room Air 02/03/22 11:05 Oxygen Flow Rate 0 02/03/22 11:05 Pain Level 5 02/03/22 11:05 Comment 02/03/22 11:05
[2022-02-03 11:33] LABS: Bilirubin Negative (Negative); Blood Large (Negative); Clarity Sl Cloudy (Clear); Glucose Negative (Negative); Ketones Negative (Negative); Leukocyte Esterase Negative (Negative); Nitrite Negative (Negative); Specific Gravity >= 1.030 (1.005-1.025); Urobilinogen 0.2 EU/dL (Up TO 0.2)
[2022-02-03 11:34] LABS: Abs Immature Grans 0.03 10^3/uL (0.0-0.06); Absolute Basophil Count 0.05 10^3/uL (0.0-0.2); Absolute Eosinophil Count 0.18 10^3/uL (0.0-0.7); Absolute Lymphocyte Count 1.38 10^3/uL (1.2-3.4); Absolute Monocyte Count 0.72 10^3/uL (0.1-0.8); Absolute Neutrophil Count 6.47 10^3/uL (1.2-6.7); Basophils % 0.6; HCT 49.9 % (40.0-50.0); HGB 16.6 g/dL (13.5-17.5); Immature Grans % 0.3; Lymphocytes % 15.6; MCH 30.2 pg (27.0-33.0); MCHC 33.3 % (32.0-36.0); MCV 91 fL (80-95); MPV 9.7 fL (8.0-11.0); Monocytes % 8.2; Neutrophils % 73.3; Platelet Count 164 10^3/uL (130-400); RBC 5.49 10^6/uL (4.36-5.78); RDW 13.4 % (11.8-14.1); RDW-SD 44.8 fL; WBC 8.83 10^3/uL (4.4-10.8)
[2022-02-03 11:39] LABS: Bacteria Moderate HPF (Negative); C & S Indicated? Yes; Casts Negative LPF (Negative); Crystals Negative HPF (Negative); Epithelial Cells Rare HPF (Negative); Mucus Moderate (Negative); RBC 20-50 HPF (0-2); WBC 0-2 HPF (0-5)
[2022-02-03] MEDS: Normal Saline 1,000 ML 150 ML IV (11:59)
[2022-02-03] MEDS: Ketorolac 30 MG/ML VIAL 15 MG IVP (11:59)
[2022-02-03 12:20] LABS: ALT 33 U/L (16-63); AST 25 U/L (15-37); Albumin 3.9 g/dL (3.4-5.0); Alkaline Phosphatase 94 U/L (46-116); Anion Gap 8.8 mmol/L (3-11); BUN 25 mg/dL (7-18); Bilirubin, Total 0.8 mg/dL (0.2-1.0); CO2 30.2 mmol/L (21.0-32.0); CREATININE 1.8 mg/dL (0.70-1.30); Calcium 9.4 mg/dL (8.5-10.1); Chloride 105 mmol/L (98-107); Estimated GFR 37.35 (mL/min/1.73m2); Glucose 132 mg/dL (74-106); Potassium 3.7 mmol/L (3.5-5.1); Sodium 144 mmol/L (136-145); Total Protein 7.4 g/dL (6.4-8.2)
--- NOTE | 2022-02-03 13:54 | DI.VRAD_ITS ---
PROCEDURE INFORMATION: Exam: CT Abdomen And Pelvis Without Contrast Exam date and time: 02/03/2022 12:47 PM Age: 81 years old Clinical indication: Other: RT flank pain; Patient HX: HX of kidney stones TECHNIQUE: Imaging protocol: Computed tomography of the abdomen and pelvis without contrast. Radiation optimization: All CT scans at this facility use at least one of these dose optimization techniques: automated exposure control; mA and/or kV adjustment per patient size (includes targeted exams where dose is matched to clinical indication); or iterative reconstruction. COMPARISON: CT RENAL COLIC WO 01/25/2019 5:29 AM FINDINGS: Lungs: Mild patchy dependent ground-glass and consolidative opacities, similar to prior, may represent scarring and hypoventilatory change. In the appropriate setting, consider pneumonia. Heart: Aortic valvular calcification or replacement. Diaphragm: Right hemidiaphragm elevation. Liver: Prominent hepatic fissures, and enlargement of left and caudate lobes relative to right lobe, suggest cirrhosis. Gallbladder and bile ducts: Post cholecystectomy. No abnormal biliary ductal dilation. Pancreas: Fatty infiltration of the pancreas. No evidence of acute pancreatitis. No ductal dilatation or duct cutoff. Spleen: The spleen is unremarkable. Adrenal glands: The adrenal glands are unremarkable. Kidneys and ureters: No left hydronephrosis or nephrolithiasis. Right hydroureteronephrosis to the level of an obstructing 3 mm UVJ calculus (3-79 and 2-123. Nonobstructing clustered right renal mid and lower pole calyceal calculi including an approximately 1.2 cm calculus and adjacent smaller calculi. Right perinephric stranding. Renal cysts, and hypodensities which are too small to characterize and likely cysts; no follow-up is recommended. Stomach and bowel: Duodenal lipoma Appendix: No evidence of appendicitis. Intraperitoneal space: Unremarkable. No free air. No significant fluid collection. Vasculature: Normal caliber abdominal aorta and proximal common iliac arteries with calcified atherosclerosis. Lymph nodes: Unremarkable. No enlarged lymph nodes. Urinary bladder: Urinary bladder is largely obscured by streak artifact. Reproductive: The partially imaged prostate is likely enlarged. Bones/joints: Bilateral total hip replacements with streak artifact that largely obscures pelvis. Demineralized bones. Multilevel degenerative change of the spine. Concavity of superior L4 and 5 endplates, likely nonacute. Bridging osteophytes lower thoracic vertebral body. Multilevel Schmorl's nodes. L1 compression deformity. Slight retrolisthesis of L1 on L 2, L2 on L3, L5 on S1 Soft tissues: Large fat containing right inguinal hernia. Mild stranding of fat in the left upper inguinal canal which may represent a small hernia versus postsurgical change. IMPRESSION: 1. Right hydroureteronephrosis to the level of an obstructing 3 mm UVJ calculus. 2. Additional nonobstructing clustered right renal mid and lower pole calyceal calculi. 3. Large fat containing right inguinal hernia. 4. Liver morphology suggests cirrhosis. 5. Multiple additional incidental findings, detailed above. Dictated and Authenticated by: Mihaela Spivey MD. Ordering:ADAM Burks MD
--- NOTE | 2022-02-03 14:09 | NUR.NOTE ---
Nursing Note: referral to urology for kidney stone
== END 2022-02-03 14:32 | disposition home or self-care (01) ==
PROVIDERS: Emergency Provider Emergency Medicine; PCP Family Medicine
DX: N20.2 Calculus of kidney with calculus of ureter (principal); I10 Essential (primary) hypertension
CPT/HCPCS: 80053; 96361; 96374; 99284; 74176; 81003; 81015; 85025; 87086; J1885

== ENCOUNTER → 2022-02-11 09:52 | Outpatient (BNVA) | payer MEDICARE, SELFPAY | PROVIDERS: PCP Family Medicine; Referring Provider Family Medicine; Visit Provider Nurse Practitioner Gerontology | DX: N20.2 Calculus of kidney with calculus of ureter (principal); N20.0 Calculus of kidney | CPT/HCPCS: 81003; 99213 ==

== ENCOUNTER 2022-03-26 11:23 | Outpatient (REF) | payer MEDICARE, SELFPAY ==
[2022-03-26 16:12] LABS: Anion Gap 8.5 mmol/L (3-11); BUN 21 mg/dL (7-18); CO2 30.5 mmol/L (21.0-32.0); CREATININE 1.4 mg/dL (0.70-1.30); Calcium 9.2 mg/dL (8.5-10.1); Chloride 103 mmol/L (98-107); Estimated GFR 50.18 (mL/min/1.73m2); Glucose 126 mg/dL (74-106); Potassium 3.8 mmol/L (3.5-5.1); Sodium 142 mmol/L (136-145)
== END 2022-03-26 11:24 | disposition home or self-care (01) ==
LOC: NCHCN 11:23
PROVIDERS: PCP Family Medicine; Visit Provider Family Medicine
DX: N18.30 Chronic kidney disease, stage 3 unspecified (principal)
CPT/HCPCS: 80048

== ENCOUNTER → 2022-07-04 09:58 | Outpatient (BNVA) | payer MEDICARE, SELFPAY | PROVIDERS: PCP Family Medicine; Visit Provider Internal Medicine Cardiovascular Disease | DX: R06.02 Shortness of breath (principal); Q25.49 Other congenital malformations of aorta; I10 Essential (primary) hypertension | CPT/HCPCS: 99214 ==

== ENCOUNTER 2022-12-27 06:44 | Emergency (ER) | payer MEDICARE, SELFPAY ==
[2022-12-27 06:45] VITALS: BP 126/84; PULSE 87; RESP 16; TEMP 36.6; O2SAT 96
--- NOTE | 2022-12-27 07:15 | DI.RAD_ITS ---
Exam(s) XR FOOT LT COMPLETE XR ANKLE LT COMPLETE EXAM: XR ANKLE LT COMPLETE and XR foot LT complete CLINICAL HISTORY: dropped ladder on foot TECHNIQUE: 2D digital imaging was performed of the left foot and ankle. Seven images were obtained. AP, lateral and oblique views were obtained. COMPARISON: No priors for comparison. FINDINGS: BONES: No acute fracture is present. No bony destructive lesion is seen. There is an enthesophyte at the posterior calcaneus. JOINTS:The ankle mortise is normally aligned. Degenerative changes are seen in the foot particularly at the 1st metatarsophalangeal joint where there is a large dorsal spur at the head of the 1st metata rsal. SOFT TISSUE: Atherosclerosis is present. IMPRESSION: No acute fracture or dislocation is seen in the left foot or ankle. DATA REPOSITORY: RADIATION DOSE DELIVERED:
--- NOTE | 2022-12-27 07:36 | ED.GENADUL_ITS ---
Discharge Plan Disposition Patient Disposition: Home Condition: Stable Discharge Details Clinical Impression: Contusion of foot, left Primary Care Provider: Donald Lazaro ED Provider: Michael Leon Home Meds and New Rx's Prescriptions: Continued sod monofluorphosphate-Ca carb 22.75-625 mg tablet 1 tab PO DAILY amlodipine 2.5 mg tablet 2.5 mg PO DAILY hydrochlorothiazide 25 mg tablet 25 mg PO HS finasteride 5 mg tablet 5 mg PO HS atorvastatin 40 mg tablet 40 mg PO DAILY aspirin [Adult Aspirin Regimen] 81 mg tablet,delayed release (DR/EC) 81 mg PO DAILY losartan 25 mg tablet 25 mg PO HS sildenafil 50 mg tablet 50 mg PO DAILY PRN Rx Instructions: administer 30 minutes to 4 hours before activity tamsulosin 0.4 mg capsule 0.4 mg PO DAILY Fiber Laxative(methylcellulos) 500 MG tablet 500 mg PO DAILY PRN acetaminophen [Tylenol Extra Strength] 500 mg tablet 500 mg PO Q6H PRNQty: 90 0RF Discharge Instructions Instructions: Foot Contusion (ED) Additional Instructions: If the radiologist sees any concerning findings I will call you if not better in a week see your primary care provider if you feel more ill, have severe worsening pain or new pain such as chest pain return to the emergency department Medical Decision Making 82 yo male comes in with left foot pain s/p dropping ladder on top of it yesterday. Denies falling or other injuries, no head trauma. He has pain in the left mid foot and is able to bear weight though with some pain. He has intact sensation and pulses, there is swelling of the mid foot. No pain in the knee, thigh or hip, nor the proximal or mid tib/fib area. Suspect contusion, will obtain xrays to evaluate for fracture xrays on my read show no acute findings, he is stable, states he has crutches to use as needed, will provide post op shoe. Advised I will call him if radiology sees any fracture, and also to f/u with pcp if not better in a week and return precautions given Differential Diagnosis Differential Diagnosis: sprain strain contusion fracture Imaging Data Radiologic Study: Attestation: I personally reviewed and interpreted this imaging study as follows: Imaging: X-Ray My impression: no acute findings ankle xray Radiologic Study #2: Attestation: I personally reviewed and interpreted this imaging study as follows: Imaging: X-Ray Radiologist's impression: no acute findings foot xray HPI General Mode of arrival: ambulatory . Date/Time Provider Initiated Documentation: 12/27/22 06:53 . Limitations to Documentation: no limitations . Information obtained by: patient . History of Present Illness 82 year old M presents to the emergency department with the chief complaint of left foot pain, described as moderate, Quality is described as aching, and is localized to the left and lower extremity. Patient reports no radiation. Patient started experiencing this day(s) (1) and it has been constant. No relieving factors improve symptom(s), No exacerbating factors reported . Patient notes no other symptoms.. Patient did receive the following treatments prior to arrival, none Related Data Home Medications Medication Instructions Recorded Confirmed methylcellulose (laxative) 500 mg 500 mg PO DAILY PRN 05/01/16 08/06/22 tablet (Fiber Laxative (methylcellulose)) losartan 25 mg tablet 25 mg PO HS 01/25/20 08/06/22 finasteride 5 mg tablet 5 mg PO HS 10/05/20 08/06/22 hydrochlorothiazide 25 mg tablet 25 mg PO HS 10/05/20 08/06/22 acetaminophen 500 mg tablet 500 mg PO Q6H PRN #90 tabs 10/25/20 08/06/22 (Tylenol Extra Strength) sildenafil 50 mg tablet 50 mg PO DAILY PRN 03/02/21 08/06/22 tamsulosin 0.4 mg capsule 0.4 mg PO DAILY 03/02/21 08/06/22 aspirin 81 mg tablet,delayed 81 mg PO DAILY 10/18/21 08/06/22 release (Adult Aspirin Regimen) atorvastatin 40 mg tablet 40 mg PO DAILY 10/18/21 08/06/22 amlodipine 2.5 mg tablet 2.5 mg PO DAILY 07/04/22 08/06/22 sodium monofluorophosphate-calcium 1 tab PO DAILY 07/04/22 08/06/22 carbonate 22.75 mg-625 mg tablet Previous Rx's Medication Instructions Recorded acetaminophen 500 mg tablet 500 mg PO Q6H PRN #90 tabs 10/25/20 (Tylenol Extra Strength) Allergies Allergy/AdvReac Type Severity Reaction Status Date / Time Penicillins Allergy Unknown sometimes, Verified 07/04/22 10:03 the shot, so long ago I can't remember hay AdvReac Mild Uncoded 07/04/22 10:03 General Stated Complaint: Orthopedic MONTSERRAT: 4 Review of Systems All systems reviewed & are unremarkable except as noted in HPI and below Constitutional Constitutional: Denies chills, Denies fever(s) and Denies weakness Cardiovascular Cardiovascular: Denies chest pain and Denies dyspnea Respiratory Respiratory: Denies cough and Denies dyspnea Gastrointestinal Gastrointestinal: Denies abdominal pain, Denies nausea and Denies vomiting Integumentary/Breasts Skin/Breast: Denies rash Neurologic Neurologic: Denies weakness PFSH All Active Problems (Updated 12/27/22 @ 08:03 by Michael Leon MD) Contusion of foot, left (Acute) Pain, foot (Acute) Hallux rigidus (Acute) Staghorn calculus (Acute) 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) SOB (shortness of breath) (Acute) Constipation (Acute) Diastasis recti (Acute) Pre-op evaluation (Acute) Medical History Actinic keratosis Benign prostatic hyperplasia (06/24/16) Calculus of proximal right ureter 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 Social History Smoking/Tobacco Use Status: Never Smoking risk assessment performed?: Yes Alcohol Intake: never Drug use: Never Substance use type: does not use Household members: spouse Housing: house Number of Children: 2 number of grandchildren: 2 current occupation: Retired Current gender identity: male What type of physical activity do you participate in: walking, independent ambulation and regular exercise Do you feel safe at home: Yes Do you feel safe in your relationship?: Yes Additional Social history: unable to assess privatley Exam Const General: no acute distress Orientation: alert HENMT Head: normal to inspection Ears: external ears normal General nose exam: external nose normal Mouth: moist mucous membranes Eyes General: appearance normal, both eyes and all related structures Neck Neck: normal visual inspection Resp Effort & Inspection: normal respiratory effort and able to speak in complete sentences Cardio Rate: regular rate Skin General skin exam: no rashes or lesions noted Neuro General: patient alert and patient oriented x3 Extrem General: normal to inspection, full ROM and capillary refill normal Psych Mental Status: mental status grossly normal Course Vital Signs Vital signs: Vital Signs Temperature 36.6 C 12/27/22 06:45 Pulse 87 12/27/22 06:45 Respiratory Rate 16 12/27/22 06:45 Blood Pressure 126/84 12/27/22 06:45 Pulse Oximetry 96 12/27/22 06:45 Temperature 36.6 C 12/27/22 06:45 Pulse 87 12/27/22 06:45 Respiratory Rate 16 12/27/22 06:45 Respiratory Effort Normal 12/27/22 06:49 Blood Pressure 126/84 12/27/22 06:45 Pulse Oximetry 96 12/27/22 06:45 Oxygen Delivery Method Room Air 12/27/22 06:45 Oxygen Flow Rate 0 12/27/22 06:45 Pain Level 10 12/27/22 06:45
[2022-12-27] MEDS: Ibuprofen 600 MG TAB PO (08:14)
== END 2022-12-27 08:15 | disposition home or self-care (01) ==
PROVIDERS: Emergency Provider Emergency Medicine; PCP Family Medicine
DX: S90.32XA Contusion of left foot, initial encounter (principal); I10 Essential (primary) hypertension; Z79.82 Long term (current) use of aspirin; W20.8XXA Other cause of strike by thrown, projected or falling object, initial encounter
CPT/HCPCS: 99283; 73610; 73630

== ENCOUNTER → 2023-01-09 10:56 | Outpatient (BNVA) | payer MEDICARE, SELFPAY | PROVIDERS: PCP Family Medicine; Referring Provider Family Medicine; Visit Provider Internal Medicine Cardiovascular Disease | DX: Q25.49 Other congenital malformations of aorta (principal); I10 Essential (primary) hypertension | CPT/HCPCS: 99214 ==

== ENCOUNTER 2023-03-11 18:50 | Outpatient (REF) | payer MEDICARE, SELFPAY ==
[2023-03-11 18:59] LABS: Anion Gap 8.8 mmol/L (3-11); BUN 25 mg/dL (7-18); CO2 31.2 mmol/L (21.0-32.0); CREATININE 1.3 mg/dL (0.70-1.30); Calcium 9.5 mg/dL (8.5-10.1); Chloride 104 mmol/L (98-107); Estimated GFR 54.51 (mL/min/1.73m2); Glucose 148 mg/dL (74-106); Potassium 3.8 mmol/L (3.5-5.1); Sodium 144 mmol/L (136-145); Uric Acid 6.1 mg/dL (3.5-7.2)
[2023-03-11 19:01] LABS: Hemoglobin A1C 6.3 % (<5.7)
== END 2023-03-11 18:51 | disposition home or self-care (01) ==
LOC: NCHCN 18:50
PROVIDERS: PCP Family Medicine; Visit Provider Family Medicine
DX: R73.03 Prediabetes (principal); I10 Essential (primary) hypertension; M10.9 Gout, unspecified
CPT/HCPCS: 80048; 83036; 84550

== ENCOUNTER 2023-07-25 09:15 | Outpatient (CLI) | payer MEDICARE, SELFPAY ==
--- NOTE | 2023-07-25 09:30 | RT.EKG_ITS ---
APPROVED REPORT Exam: Resting ECG Reason for Exam: follow up Patient Location: O HR:81 bpm ECG Measurements Heart Rate 81 AXIS [place] 287 P 44 QRSd 152 QRS -73 QT 412 T 82 QTc 479 Conclusion Sinus rhythm...normal P axis, V-rate 50- 99 Prolonged KY interval...KY >220, V-rate 50- 90 RBBB and LAFB...QRSd >120mS, axis(-40,240)
== END 2023-07-25 09:16 | disposition home or self-care (01) ==
LOC: DI.CARD 09:31
PROVIDERS: PCP Family Medicine; Referring Provider Family Medicine; Visit Provider Internal Medicine Cardiovascular Disease
DX: R06.02 Shortness of breath (principal)
CPT/HCPCS: 93010

== ENCOUNTER → 2023-07-25 09:15 | Outpatient (BNVA) | payer MEDICARE, SELFPAY | PROVIDERS: PCP Family Medicine; Referring Provider Family Medicine; Visit Provider Internal Medicine Cardiovascular Disease | DX: I45.10 Unspecified right bundle-branch block (principal); I44.4 Left anterior fascicular block; Q25.49 Other congenital malformations of aorta; I10 Essential (primary) hypertension | CPT/HCPCS: 93005; 99213 ==

== ENCOUNTER 2023-07-30 15:13 | Outpatient (REF) | payer MEDICARE, SELFPAY ==
[2023-07-30 16:25] LABS: Abs Immature Grans 0.03 10^3/uL (0.0-0.06); Absolute Basophil Count 0.03 10^3/uL (0.0-0.2); Absolute Eosinophil Count 0.14 10^3/uL (0.0-0.7); Absolute Monocyte Count 0.55 10^3/uL (0.1-0.8); Basophils % 0.5; Eosinophils % 2.4; HCT 48.5 % (40.0-50.0); HGB 15.8 g/dL (13.5-17.5); Immature Grans % 0.5; Lymphocytes % 25.2; MCH 30.1 pg (27.0-33.0); MCHC 32.6 % (32.0-36.0); MCV 92 fL (80-95); MPV 10.3 fL (8.0-11.0); Monocytes % 9.2; Neutrophils % 62.2; Platelet Count 166 10^3/uL (130-400); RBC 5.25 10^6/uL (4.36-5.78); RDW 13.8 % (11.8-14.1); RDW-SD 46.5 fL; WBC 5.95 10^3/uL (4.4-10.8)
[2023-07-30 17:05] LABS: Vitamin D 25 Total 15.1 ng/mL (30-100)
[2023-07-30 18:12] LABS: ALT 31 U/L (16-63); AST 24 U/L (15-37); Albumin 3.7 g/dL (3.4-5.0); Alkaline Phosphatase 84 U/L (46-116); Anion Gap 10.5 mmol/L (3-11); BUN 22 mg/dL (7-18); Bilirubin, Total 0.5 mg/dL (0.2-1.0); CO2 29.5 mmol/L (21.0-32.0); CREATININE 1.2 mg/dL (0.70-1.30); Calcium 8.7 mg/dL (8.5-10.1); Chloride 105 mmol/L (98-107); FREE T4 0.86 ng/dL (0.76-1.46); Glucose 112 mg/dL (74-106); Potassium 3.6 mmol/L (3.5-5.1); Sodium 145 mmol/L (136-145); TSH 1.88 uIU/Ml (0.36-3.74); Total Protein 6.6 g/dL (6.4-8.2)
== END 2023-07-30 15:14 | disposition home or self-care (01) ==
LOC: NCHCN 15:13
PROVIDERS: PCP Family Medicine; Visit Provider Student in an Organized Health Care Education/Training Program
DX: R06.09 Other forms of dyspnea (principal); E55.9 Vitamin D deficiency, unspecified; R53.83 Other fatigue
CPT/HCPCS: 80053; 82306; 84439; 84443; 85025

== ENCOUNTER → 2023-10-27 08:25 | Outpatient (BNVA) | payer MEDICARE, SELFPAY | PROVIDERS: PCP Family Medicine; Referring Provider Family Medicine; Visit Provider Student in an Organized Health Care Education/Training Program | DX: M70.61 Trochanteric bursitis, right hip (principal) | CPT/HCPCS: 99213 ==

== ENCOUNTER → 2024-01-29 10:08 | Outpatient (BNVA) | payer MEDICARE, SELFPAY | PROVIDERS: PCP Student in an Organized Health Care Education/Training Program; Visit Provider Internal Medicine Cardiovascular Disease | DX: Q25.49 Other congenital malformations of aorta (principal) | CPT/HCPCS: 99213 ==

== ENCOUNTER 2024-04-07 09:10 | Emergency (ER) | payer MEDICARE, SELFPAY | END 2024-04-07 09:47 | disposition left against medical advice (07) | PROVIDERS: PCP Student in an Organized Health Care Education/Training Program | DX: Z53.21 Procedure and treatment not carried out due to patient leaving prior to being seen by health care provider (principal) ==

== ENCOUNTER 2024-04-13 16:09 | Outpatient (REF) | payer MEDICARE, SELFPAY ==
[2024-04-13 19:22] LABS: ESR 18 mm/hr (0-20)
[2024-04-13 19:50] LABS: ALT 33 U/L (16-63); AST 26 U/L (15-37); Albumin 3.7 g/dL (3.4-5.0); Alkaline Phosphatase 90 U/L (46-116); Anion Gap 10.5 mmol/L (3-11); BUN 22 mg/dL (7-18); Bilirubin, Total 0.47 mg/dL (0.2-1.0); CO2 28.5 mmol/L (21.0-32.0); CREATININE 1.5 mg/dL (0.70-1.30); Calcium 8.9 mg/dL (8.5-10.1); Chloride 107 mmol/L (98-107); Estimated GFR 45.62 (mL/min/1.73m2); Glucose 197 mg/dL (74-106); Potassium 3.5 mmol/L (3.5-5.1); Sodium 146 mmol/L (136-145); Total Protein 6.6 g/dL (6.4-8.2)
[2024-04-13 19:54] LABS: C-Reactive Protein < 0.50 mg/dL (<or=0.5)
== END 2024-04-13 16:10 | disposition home or self-care (01) ==
LOC: NCHCN 16:09
PROVIDERS: PCP Student in an Organized Health Care Education/Training Program; Visit Provider Student in an Organized Health Care Education/Training Program
DX: L29.81 Cholestatic pruritus (principal)
CPT/HCPCS: 80053; 85652; 86140

== ENCOUNTER 2024-04-21 12:29 | Outpatient (CLI) | payer MEDICARE, SELFPAY ==
[2024-04-21 15:07] LABS: Abs Immature Grans 0.03 10^3/uL (0.0-0.06); Absolute Basophil Count 0.04 10^3/uL (0.0-0.2); Absolute Lymphocyte Count 1.75 10^3/uL (1.2-3.4); Absolute Monocyte Count 0.44 10^3/uL (0.1-0.8); Absolute Neutrophil Count 4.49 10^3/uL (1.2-6.7); Basophils % 0.6 %; Eosinophils % 2.9 %; HCT 48.8 % (40.0-50.0); HGB 16.1 g/dL (13.5-17.5); Immature Grans % 0.4 %; Lymphocytes % 25.2 %; MCH 30.3 pg (27.0-33.0); MCV 92 fL (80-95); MPV 9.8 fL (8.0-11.0); Monocytes % 6.3 %; Neutrophils % 64.6 %; Platelet Count 161 10^3/uL (130-400); RBC 5.31 10^6/uL (4.36-5.78); RDW 13.4 % (11.8-14.1); RDW-SD 45.1 fL; WBC 6.95 10^3/uL (4.4-10.8)
[2024-04-21 17:08] LABS: Hemoglobin A1C 6.7 % (<5.7)
== END 2024-04-21 12:30 | disposition home or self-care (01) ==
LOC: LBO 12:30
PROVIDERS: PCP Student in an Organized Health Care Education/Training Program; Visit Provider Student in an Organized Health Care Education/Training Program
DX: L29.81 Cholestatic pruritus (principal)
CPT/HCPCS: 36415; 83036; 85025

== ENCOUNTER 2024-06-16 10:12 | Outpatient (REF) | payer MEDICARE, SELFPAY ==
[2024-06-16 17:30] LABS: COMMENT (LAB VIEW ONLY) 269.24 mg/dL; Microalb ug/mg Crea 15.1 ug/mg Cr
== END 2024-06-16 10:13 | disposition home or self-care (01) ==
LOC: NCHCN 10:12
PROVIDERS: PCP Student in an Organized Health Care Education/Training Program; Visit Provider Student in an Organized Health Care Education/Training Program
DX: E11.9 Type 2 diabetes mellitus without complications (principal)
CPT/HCPCS: 82043; 82570

== ENCOUNTER → 2024-07-29 09:54 | Outpatient (BNVA) | payer MEDICARE, SELFPAY | PROVIDERS: PCP Student in an Organized Health Care Education/Training Program; Visit Provider Internal Medicine Cardiovascular Disease | DX: Q25.49 Other congenital malformations of aorta (principal); R06.02 Shortness of breath; I10 Essential (primary) hypertension | CPT/HCPCS: 99214 ==

== ENCOUNTER → 2024-08-09 13:21 | Outpatient (BNVA) | payer MEDICARE, SELFPAY | PROVIDERS: PCP Student in an Organized Health Care Education/Training Program; Referring Provider Student in an Organized Health Care Education/Training Program; Visit Provider Podiatrist | DX: B35.1 Tinea unguium (principal); L84 Corns and callosities | CPT/HCPCS: 99214 ==

== ENCOUNTER 2024-10-19 15:16 | Outpatient (REF) | payer MEDICARE, SELFPAY ==
[2024-10-19 16:17] LABS: ESR 9 mm/hr (0-20)
[2024-10-19 16:22] LABS: Abs Immature Grans 0.03 10^3/uL (0.0-0.06); HCT 49.4 % (40.0-50.0); HGB 15.9 g/dL (13.5-17.5); Immature Grans % 0.4 %; MCH 29.4 pg (27.0-33.0); MCHC 32.2 % (32.0-36.0); MCV 92 fL (80-95); MPV 10.6 fL (8.0-11.0); Platelet Count 155 10^3/uL (130-400); RBC 5.40 10^6/uL (4.36-5.78); RDW 13.6 % (11.8-14.1); RDW-SD 45.8 fL; WBC 7.21 10^3/uL (4.4-10.8)
[2024-10-19 17:10] LABS: ALT 35 U/L (16-63); AST 23 U/L (15-37); Albumin 4.0 g/dL (3.4-5.0); Alkaline Phosphatase 86 U/L (46-116); Anion Gap 9.9 mmol/L (3-11); BUN 22 mg/dL (7-18); Bilirubin, Total 1.0 mg/dL (0.2-1.0); CO2 30.1 mmol/L (21.0-32.0); Calcium 9.2 mg/dL (8.5-10.1); Chloride 104 mmol/L (98-107); Estimated GFR 66.19 (mL/min/1.73m2); Glucose 124 mg/dL (74-106); Potassium 3.7 mmol/L (3.5-5.1); Sodium 144 mmol/L (136-145); TSH 1.63 uIU/mL (0.36-3.74); Total Protein 6.9 g/dL (6.4-8.2)
[2024-10-19 17:11] LABS: C-Reactive Protein < 0.50 mg/dL (<or=0.5)
[2024-10-20 07:58] LABS: Total Protein 6.7 g/dL (6.3-8.2)
[2024-10-21 14:24] LABS: Albumin 58.8 % (55.8-66.1); Albumin g/dL 3.9 g/dL (3.6-5.2); Alpha 1 g/dL 0.30 g/dL (0.15-0.40); Alpha 2 g/dL 0.90 g/dL (0.50-1.00); Beta g/dL 0.90 g/dL (0.60-1.20); Gamma g/dL 0.70 g/dL (0.60-1.60)
== END 2024-10-19 15:17 | disposition home or self-care (01) ==
LOC: NCHCN 15:16
PROVIDERS: PCP Student in an Organized Health Care Education/Training Program; Visit Provider Student in an Organized Health Care Education/Training Program
DX: R53.83 Other fatigue (principal)
CPT/HCPCS: 80053; 85652; 84165; 84443; 85025; 86140

== ENCOUNTER 2024-10-21 11:13 | Outpatient (CLI) | payer MEDICARE, SELFPAY ==
--- NOTE | 2024-10-21 14:41 | DI.RAD_ITS ---
Exam(s) XR LUMBAR SPINE COMPLETE EXAM: XR LUMBAR SPINE COMPLETE CLINICAL HISTORY: M[age] LOw back pain, acute midline w/o scitica. TECHNIQUE: 2D digital imaging was performed. Five views. COMPARISON: CT CT RENAL COLIC WO from 02/03/2022 FINDINGS: BONES: There is mild loss of vertebral body height at L5, unchanged. There are prominent endplate osteophytes as well as prominent facet joint degenerative changes throughout the lumbar region. There are prominent bridging osteophytes projecting anteriorly and toward the right at L1-2. There is significant endplate sclerosis at L3-4 and L4-5. There are bilateral hip prostheses partially included in the field of view. DISKS: There is severe disc space narrowing from L2-3 through L5-S1. There is mild disc space narrowing at L1-2. ALIGNMENT: Lumbar spinal alignment is within normal limits. SOFT TISSUE: Normal. IMPRESSION: Severe degenerative disc changes and facet degenerative changes throughout the lumbar spine. DATA REPOSITORY: RADIATION DOSE DELIVERED:
== END 2024-10-21 11:33 ==
PROVIDERS: PCP Student in an Organized Health Care Education/Training Program; Visit Provider Student in an Organized Health Care Education/Training Program
DX: M51.362 Other intervertebral disc degeneration, lumbar region with discogenic back pain and lower extremity pain (principal)
CPT/HCPCS: 72110

== ENCOUNTER 2024-12-02 00:21 | Outpatient (CLI) | payer MEDICARE, SELFPAY ==
--- NOTE | 2024-12-02 | DI.CT_ITS ---
Exam(s) CT ABDOMEN PELVIS WO EXAM: CT ABDOMEN PELVIS WO CLINICAL HISTORY: Nephrolithiasis, N20.0. TECHNIQUE: Imaging Protocol: Axial computed tomography images with coronal and sagittal reformatted images were created and reviewed CONTRAST MATERIAL: Intravenous: none Oral: None COMPARISON: CT CT RENAL COLIC WO from 02/03/2022 FINDINGS: VISUALIZED LUNG BASES: Atelectasis in both lung bases is unchanged 2021. There are no pleural effusions.. ABDOMEN: There is no ascites. LIVER: There are no obvious focal hepatic lesions evident of this noninfused study. GALLBLADDER/BILIARY: Gallbladder is again noted be surgically absent. CBD is not dilated. PANCREAS: No evidence of pancreatic mass nor dilatation of the pancreatic duct. SPLEEN: Spleen is not enlarged. No obvious intrasplenic lesions. ADRENALS: There are no significant adrenal masses. KIDNEYS:Small nonobstructive calculus in the posterior cortex of the left kidney noted. There is a 3 cm cyst again noted in the right kidney. This does not require further investigation. 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 There are presently no radiopaque calculi evident in the right kidney. No hydroureter. However, there appears to be a calculus at the right ureterovesical junction measuring 4-5 mm. Somewhat difficult to assess because of streak artifact from the bilateral hip prostheses but this appears more prominent than on the prior study. However, the i psilateral right ureters not dilated. ABDOMINAL AORTA: Mild fusiform infrarenal abdominal aortic aneurysm with maximum diameter 2.8 cm LYMPH NODES: There is no retroperitoneal nor paraaortic adenopathy. ABDOMINAL WALL: Small fat only containing umbilical hernia. Also fat only containing right inguinal hernia again noted. 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 There is no evidence of bowel obstruction, free air, nor abscess. PELVIS: LYMPH NODES: There is no intrapelvic nor inguinal adenopathy. GI: No evidence of appendicitis.No evidence of sigmoid diverticulitis. URINARY BLADDER: Difficult to assess because of beam hardening artifact from bilateral hip prostheses. The above described calcification is either at the right ureterovesical junction or within the bladder lumen immediately adjacent to this. REPRODUCTIVE: Prostate gland is enlarged, measuring 5.8 cm wide. OSSEOUS: No hip prostheses. There is partial ankylosis of the sacroiliac joints. Multilevel chronic degenerative disc disease. Benign intraosseous hemangioma is again noted in the L1 vertebral body. Schmorl's node invaginations are evident in the superior endplate of L5. no acute or subacute compression fractures evident. IMPRESSION: 1. Compared to the prior CT scan of January 2022 there has most probably been interval surgical procedure. The previously described calculi including staghorn calculus in the right kidney are no longer seen and there presently no radiopaque calculi evident in the right kidney and no hydronephrosis. However, there is a 4-5 mm calculus at the right ureterovesical junction now evident but this is somewhat difficult to evaluate because of the abundant beam hardening artifact from the bilateral hip prostheses. In addition, the ipsilateral right ureter is not dilated. There is a possibly that this calculus is in the adjacent lumen of the urinary bladder or bladder wall. There is no dilatation of the collecting system above this level. 2. Gallbladder surgically absent. The biliary tree is not dilated. 3. 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 RADIATION DOSE DELIVERED: 871.6mGy.cm Total DLP DATA REPOSITORY: All CT scans at this facility are submitted to the National Radiology Data Registry (NRDR) Dose Index Registry (DIR) with the [employer] (A[employer]). RADIATION OPTIMIZATION: All CT scans at this facility use at least one of these dose optimization techniques: automated exposure control; mA and/or kV adjustment per patient size (includes targeted exams where dose is matched to clinical indication); or iterative reconstruction.
== END 2024-12-02 00:41 ==
LOC: DI 00:21
PROVIDERS: PCP Student in an Organized Health Care Education/Training Program; Visit Provider Urology
DX: N20.0 Calculus of kidney (principal)
CPT/HCPCS: 74176

== ENCOUNTER 2025-01-20 04:20 | Outpatient (CLI) | payer MEDICARE, SELFPAY ==
--- NOTE | 2025-01-20 08:30 | DI.US_ITS ---
APPROVED REPORT EXAM: Comprehensive 2D, Doppler, and color-flow Echocardiogram Patient Location: Out-Patient [facility] Tender: Carley Stringer RDCS ([facility]) Indications: Check sinuses of valsalva aneurysm Other Information Study Quality: Adequate. Technically limited study due to body habitus. Conclusion Grossly normal left ventricular wall thickness, chamber size and systolic function. No segmental wall motion abnormalities are identified Normal right ventricular size and function Atria are not well-visualized but do not appear significantly enlarged Aortic valve is sclerotic. There is no aortic stenosis. There is mild aortic regurgitation Calcified sinus of Valsalva aneurysm Estimated right ventricular systolic pressure is 23 mmHg Ascending aorta measures 3.9 cm Wall motion Left Ventricle Technically limited imaging. LV grossly normal in size. The overall left ventricular systolic function appears normal. There is normal LV segmental wall motion. There is no ventricular septal defect visualized. Right Ventricle Right ventricle is grossly normal in size. Right ventricular systolic function is grossly normal. Atria Left atrium is not well visualized. Right atrium is not well visualized. The interatrial septum is intact with no evidence for an atrial septal defect. Aortic Valve Aortic valve is probably trileaflet. There is no aortic valvular stenosis. Mild aortic regurgitation. Mitral Valve The mitral valve is normal in structure. No evidence of mitral valve stenosis. Trace mitral regurgitation. Tricuspid Valve The tricuspid valve is normal in structure. There is no tricuspid valve stenosis. Trace tricuspid regurgitation. The RVSP is 22.9 mmHg. Pulmonic Valve The pulmonary valve is normal in structure. There is no pulmonic valvular stenosis. Mild pulmonic regurgitation. Great Vessels Sinus of Valsalva aneurysm is present. The ascending aorta is mildly dilated. Aortic arch is normal in caliber. IVC is normal in size and collapses >50% with inspiration. Pericardium There is no pericardial effusion. 2D Dimensions Ao Root d 4.30 cm M: 3.1 - 3.7 Ao Asc Diam d 3.90 cm M: 2.6 - 3.4 M-Mode TAPSE 1.27 cm (M/F) >1.7 LV Diastology MV E' lateral 0.120 (>0.1 m/s) Aortic Valve AoV Vmax 1.75 m/s LVOT Vmax 0.88 m/s AoV Peak Grad 26.5 mmHg LVOT Peak Grad 3.1 mmHg AoV Area (Vmax) 1.68 cm2 LVOT VTI 0.187 m AoV VTI 0.316 m LVOT Mean Grad 1.5 mmHg AoV Mean Tato. 1.15 m/s LVOT SV 62.46 mL AoV Mean Grad 6.3 mmHg LVOT Diam s 2.05 cm AoV Area (VTI) 1.98 cm2 AV Regurg Peak Gr. 12.22 mmHg Velocity Ratio 0.50 AR Decel [place] 1.6m/sec2 AR DT 2045 msec AR PHT 593 msec AR Vmax 3.19 m/s Mitral Valve MV Vmax TIPS 1.07 m/s MV Mean Grad 1.8 (<2mmHg) MV VTI 0.222 m Pulmonary Valve PV Vmax 0.82 (0.5-1.5 m/s) RVOT Vmax 0.70 m/s PV Peak Grad 2.7 mmHg RVOT Peak Gr. 2.0 mmHg PV Mean Tato 0.59 m/s RVOT VTI 0.127 m PV Mean Grad 1.6 mmHg RVOT Mean Gr. 1.1 mmHg Tricuspid Valve RA Pressure 3.00 mmHg TR Vmax 2.23 m/s TV S' 0.12 m/s TR Peak Grad 19.8 mmHg RVSP (TR) 22.9 mmHg
== END 2025-01-20 04:40 ==
LOC: DI 04:20
PROVIDERS: PCP Student in an Organized Health Care Education/Training Program; Visit Provider Internal Medicine Cardiovascular Disease
DX: Q25.43 Congenital aneurysm of aorta (principal)
CPT/HCPCS: 93306

== ENCOUNTER → 2025-01-27 09:34 | Outpatient (BNVA) | payer MEDICARE, SELFPAY | PROVIDERS: PCP Student in an Organized Health Care Education/Training Program; Visit Provider Internal Medicine Cardiovascular Disease | DX: Q25.49 Other congenital malformations of aorta (principal); I10 Essential (primary) hypertension; M54.9 Dorsalgia, unspecified | CPT/HCPCS: 99213 ==